=== PATIENT | female | born 1965 | race Two or more races ===

== ENCOUNTER 2022-11-21 08:44 | Outpatient (OUT) | payer OTHER, SELFPAY ==
--- NOTE | 2022-11-21 09:06 | MM_ITS ---
Patient: JACOB WHITMORE Exam Date: 11/21/2022 : 1965 Gender:F Ordering : DR ADDI ANTONIO Admission #: [id number] Family : Order #: [id number] CLICK HERE TO VIEW EXAM RADIOLOGY REPORT PROCEDURE: MM TOMOSYNTHESIS SCREENING BI COMPARISON: MG MAMM SCREEN 3D POLLY CAD, 06/09/2021. INDICATIONS: Screening Calculator Name NCI Breast Cancer Risk Assessment Tool 5 Year Breast Cancer Risk 1.10% Lifetime Breast Cancer Risk 6.50% Personal Breast Cancer No Personal Ovarian Cancer No Treatments None Family Cancers Niece with ovarian cancer at age 35; Father with renal cancer at age 65; Sister with leukemia cancer at age 63. LOCATION: [facility] [place] BREAST COMPOSITION: Scattered areas fibroglandular density. FINDINGS: DIAGNOSTIC CATEGORY 1--NEGATIVE. RIGHT BREAST: No significant suspicious finding. Stable biopsy marker clip upper-outer quadrant. No significant change has occurred. LEFT BREAST: No significant suspicious finding. No significant change has occurred. RECOMMENDATIONS: ROUTINE MAMMOGRAM AND CLINICAL EVALUATION IN 12 MONTHS. PLEASE NOTE: A NORMAL MAMMOGRAM DOES NOT EXCLUDE THE POSSIBILITY OF BREAST CANCER. A CLINICALLY SUSPICIOUS PALPABLE LUMP SHOULD BE BIOPSIED. Dictated by: Adithya Hernandez M.D. on 11/21/2022 at 11:35 Approved by: Adithya Hernandez M.D. on 11/21/2022 at 11:39
== END 2022-11-21 08:45 ==
PROVIDERS: PCP Specialist; Visit Provider Specialist
DX: Z12.31 Encounter for screening mammogram for malignant neoplasm of breast (principal); Z80.51 Family history of malignant neoplasm of kidney; Z80.6 Family history of leukemia; Z80.41 Family history of malignant neoplasm of ovary
CPT/HCPCS: 77063; 77067

== ENCOUNTER 2023-07-04 08:02 | Outpatient (OUT) | payer OTHER, SELFPAY ==
--- NOTE | 2023-07-04 08:06 | XR_ITS ---
[address] [address] Patient Name: JACOB WHITMORE MRN: [id number] date: 1965 Sex: F Assigned Patient Location: [facility] Current Patient Location: [facility] Accession/Order Number: [id number] Exam Date: 07/04/2023 08:10 Report Date: 07/04/2023 08:28 At the request of: SHAIKH REYMUNDO Procedure: XR DEXA axial skeleton EXAMINATION: XR DEXA axial skeleton, 07/04/2023 8:10 AM EST HISTORY: Osteopenia Of Left Femur M85.852 COMPARISON: 2020 TECHNIQUE: Dual-energy X-ray absorptiometry (DEXA) bone density study performed for the axial skeleton. HISTORY: Osteopenia Of Left Femur M85.852 FINDINGS: Bone mineral density of the femurs measures 0.92 g/sq cm. 1.9% reduction from the prior exam, physiologic. T score -0.6. WHO classification: Normal. Lowest bone mineral density is in the left forearm radius measuring 0.588 g/sq cm. T score -1.8. WHO classification: Osteopenia XR/XR DEXA axial skeleton IMPRESSION: Osteopenia. Moderate fracture risk Electronically authenticated by: ADALBERTO BUENO Date: 07/04/2023 08:28
== END 2023-07-04 08:03 | disposition home or self-care (01) ==
LOC: RAD 08:02
PROVIDERS: Family Provider Internal Medicine; PCP Specialist; Visit Provider Internal Medicine
DX: M85.852 Other specified disorders of bone density and structure, left thigh (principal)
CPT/HCPCS: 77080

== ENCOUNTER 2023-08-27 13:57 | Outpatient (OUT) | payer OTHER, SELFPAY ==
--- NOTE | 2023-08-27 14:07 | US_ITS ---
Patient Name: JACOB WHITMORE MR#: [id number] : 1965 Exam Date: 08/27/2023 Ordering Doctor: DR ADDI ANTONIO RADIOLOGY REPORT PROCEDURE: MM TOMOSYNTHESIS DIAGNOSTIC LT, 08/27/2023, 13:09 US BREAST LT LIMITED, 08/27/2023, 14:23 COMPARISON: MM TOMOSYNTHESIS SCREENING BI, 11/21/2022. INDICATIONS: breast pain N64.4 Calculator Name NCI Breast Cancer Risk Assessment Tool 5 Year Breast Cancer Risk 1.10% Lifetime Breast Cancer Risk 6.30% Personal Breast Cancer No Personal Ovarian Cancer No Treatments None Family Cancers Niece with ovarian cancer at age 35; Father with renal cancer at age 65; Sister with leukemia cancer at age 63. LOCATION: [facility] BREAST COMPOSITION: Scattered areas fibroglandular density. FINDINGS: DIAGNOSTIC CATEGORY 3--PROBABLY BENIGN FINDING. THE FOLLOWING FINDING(S) HAS A HIGH PROBABILITY OF A BENIGN ETIOLOGY: 7 mm nodules identified in the upper-outer quadrant in the region the patient's palpable abnormality demarcated a triangle marker. Ultrasound demonstrates at the 1 o'clock position a 7.0 x 4.9 x 8.5 mm oval well-circumscribed hypoechogenic reniform shaped nodule. No definite hilum is observed. This could represent a lymph node. Six-month follow-up is recommended to document stability RECOMMENDATIONS: SHORT TERM FOLLOW-UP DIAGNOSTIC MAMMOGRAM LEFT BREAST IN 6 MONTHS. SHORT TERM FOLLOW-UP ULTRASOUND LEFT BREAST IN 6 MONTHS. PLEASE NOTE: A NORMAL MAMMOGRAM DOES NOT EXCLUDE THE POSSIBILITY OF BREAST CANCER. A CLINICALLY SUSPICIOUS PALPABLE LUMP SHOULD BE BIOPSIED. Dictated by: Cachorro Campos MD on 08/27/2023 at 15:14 Approved by: Cachorro Campos MD on 08/27/2023 at 15:17
== END 2023-08-27 13:58 | disposition home or self-care (01) ==
LOC: MAMMO 13:58
PROVIDERS: Family Provider Internal Medicine; PCP Specialist; Visit Provider Specialist
DX: N64.4 Mastodynia (principal); Z80.51 Family history of malignant neoplasm of kidney; Z80.6 Family history of leukemia; Z80.41 Family history of malignant neoplasm of ovary; N63.21 Unspecified lump in the left breast, upper outer quadrant
CPT/HCPCS: 76642; 77065; G0279

== ENCOUNTER 2024-03-05 09:02 | Outpatient (OUT) | payer OTHER, SELFPAY ==
--- NOTE | 2024-03-05 09:05 | MM_ITS ---
Patient Name: JACOB WHITMORE MR#: [id number] : 1965 Exam Date: 03/05/2024 Ordering Doctor: DR ADDI ANTONIO RADIOLOGY REPORT PROCEDURE: MAMMOGRAM DIAGNOSTIC 3D BILATERAL CAD, 03/05/2024, 09:06 US BREAST LT LIMITED, 03/05/2024, 09:18 COMPARISON: MM TOMOSYNTHESIS SCREENING BI, 11/21/2022. MM TOMOSYNTHESIS DIAGNOSTIC LT, 08/27/2023. INDICATIONS: abnormal finding of breast imaging Calculator Name [facility] Breast Cancer Risk Assessment Tool 5 Year Breast Cancer Risk 1.10% Lifetime Breast Cancer Risk 6.30% Personal Breast Cancer No Personal Ovarian Cancer No Treatments None Family Cancers Niece with ovarian cancer at age 35; Father with renal cancer at age 65; Sister with leukemia cancer at age 63. LOCATION: [facility] BREAST COMPOSITION: There are scattered areas of fibroglandular density. FINDINGS: DIAGNOSTIC CATEGORY 2--BENIGN FINDING. NO CHANGE FROM COMPARISON. Scattered benign-appearing lymph nodes are present. RIGHT BREAST: No significant suspicious finding. Micro clip marker upper outer quadrant, mid breast, stable. LEFT BREAST: No significant suspicious finding. No mammographic or ultrasound abnormality to correspond to patient's breast pain RECOMMENDATIONS: ROUTINE MAMMOGRAM AND CLINICAL EVALUATION IN 12 MONTHS. PLEASE NOTE: A NORMAL MAMMOGRAM DOES NOT EXCLUDE THE POSSIBILITY OF BREAST CANCER. A CLINICALLY SUSPICIOUS PALPABLE LUMP SHOULD BE BIOPSIED. Dictated by: Cachorro Campos MD on 03/05/2024 at 10:28 Approved by: Cachorro Campos MD on 03/05/2024 at 10:40
== END 2024-03-05 09:03 | disposition home or self-care (01) ==
LOC: MAMMO 09:02
PROVIDERS: Family Provider Internal Medicine; PCP Specialist; Visit Provider Specialist
DX: R92.8 Other abnormal and inconclusive findings on diagnostic imaging of breast (principal); Z80.6 Family history of leukemia; Z80.41 Family history of malignant neoplasm of ovary; Z80.8 Family history of malignant neoplasm of other organs or systems
CPT/HCPCS: 76642; 77066; G0279

== ENCOUNTER 2025-01-03 13:33 | Emergency (ER) | payer BC, SELFPAY ==
[2025-01-03] VITALS (10 sets, daily range): BP systolic 141–158; BP diastolic 88–92; PULSE 64–71; O2SAT 99; BMI 33.8
--- NOTE | 2025-01-03 13:50 | XR_ITS ---
The [address] [address] Patient Name: JACOB WHITMORE MRN: [id number] date: 1965 Sex: F Assigned Patient Location: ER Current Patient Location: ER Accession/Order Number: [id number] Exam Date: 01/03/2025 14:22 Report Date: 01/03/2025 14:23 At the request of: STACY RICHARDSON MD Procedure: XR chest 1V PA CHEST: CLINICAL HISTORY: cp COMPARISON: None FINDINGS: Mildly enlarged cardiomediastinal silhouette may be related to low lung volumes. Aortic knob calcifications. No focal airspace opacity, effusion or pneumothorax. XR/XR chest 1V IMPRESSION: Negative for acute pleural or parenchymal disease Impression dictated by: Willie Osman M.D. 01/03/2025 2:23 PM Dictation Location: [place] [address] Electronically authenticated by: [id number] Y Date: 01/03/2025 14:23
--- NOTE | 2025-01-03 13:50 | ECG_ITS ---
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 Measurements Intervals [place] Rate: 69 P: 4 LA: 136 QRS: 35 QRSD: 90 T: 26 QT: 378 QTc: 398 Interpretive Statements 1100 Sinus rhythm 8102 Low QRS voltage in chest leads 9120 atypical ECG No previous ECG available for comparison Electronically Signed On 01-03-2025 15:39:04 EDT by BRENDA GALINDO M.D.
--- OUTSIDE RECORDS SUMMARY | 2025-01-03 13:50 | XMS_ITS | CCD ---
Author Organization [facility] Care Team Providers Care Pipe Organ Builder Name Role Phone MCKOVA TEE D Unavailable Unavailable ANJEL CARTER Unavailable Unavailable CONSULT, SURGERY - ORTHOPAEDICS Unavailable Unavailable ACOSTA, SAFDAR Unavailable Unavailable TSALIKOVA, TEE D Unavailable Unavailable YENNI NELSON Unavailable Unavailable ROMAN, SUGEY Unavailable Unavailable ROMAN, SUGEY Unavailable Unavailable TSALIKOVA, TEE D Unavailable Unavailable TSALIKOVA, TEE D Unavailable Unavailable TSALIKOVA, TEE D Unavailable Unavailable TSALIKOVA, TEE D Unavailable Unavailable TSALIKOVA, TEE D Unavailable Unavailable TSALIKOVA, TEE D Unavailable Unavailable TSALIKOVA, TEE D Unavailable Unavailable TSALIKOVA, TEE D Unavailable Unavailable TSALIKOVA, TEE D Unavailable Unavailable TSALIKOVA, TEE D Unavailable Unavailable TSALIKOVA, TEE D Unavailable Unavailable TSALIKOVA, TEE D Unavailable Unavailable TSALIKOVA, TEE D Unavailable Unavailable ACOSTA, SAFDAR Unavailable Unavailable SELF, SELF Unavailable Unavailable TSALIKOVA, TEE D Unavailable Unavailable NATASHA HARDWICK Attending Unavailable CHERYLNATASHA Primary Care Unavailable CHERYLNATASHA Attending Unavailable CHERYLNATASHA Primary Care Unavailable NATASHA HARDWICK Attending Unavailable NATASHA HARDWICK Referring Unavailable CHERYLNATASHA Primary Care Unavailable FLORENCE JONES Attending Unavailable CHERYLNATASHA Primary Care Unavailable CHERYLNATASHA Attending Unavailable CHERYL, NATASHA Mcgraw Primary Care Unavailable NICOLAS STROUD Attending Unavailable CHERYL, NATASHA Mcgraw Primary Care Unavailable NATASHA HARDWICK Attending Unavailable CHERYLNATASHA MILLER Primary Care Unavailable CHERYL, EDUARDO Attending Unavailable CHERYL, EDUARDO Primary Care Unavailable Tee Valverde Primary Care Provider TEE VALVERDE Primary Care Unavailable HUSAM JACKSON Referring Unavailable HUSAM JACKSON Attending Unavailable FAWWAD, CHISHOLM H Admitting Unavailable FAWWAD, CHISHOLM H Attending Unavailable FAWWAD, CHISHOLM H Primary Care Unavailable KARASIK ., DR GUEVARA Admitting Unavailabl e KARASIK ., DR GUEVARA Attending Unavailabl e FAWWAD, CHISHOLM H Primary Care Unavailable KARASIK ., DR GUEVARA Consulting Unavailabl e WEST, DR ADALBERTO Davis Consulting Unavailable FAWWAD, CHISHOLM H Admitting Unavailable FAWWAD, CHISHOLM H Attending Unavailable FAWWAD, CHISHOLM H Primary Care Unavailable FAWWAD, CHISHOLM H Consulting Unavailable KARASIK ., DR GUEVARA Admitting Unavailabl e KARASIK ., DR GUEVARA Attending Unavailabl e FAWWAD, CHISHOLM H Primary Care Unavailable KARASIK ., DR GUEVARA Consulting Unavailabl e ROSELIA, LYDIA Admitting Unavailable ROSELIALYDIA Attending Unavailable FAWWAD, CHISHOLM H Primary Care Unavailable Lady Gorman Consulting Unavailable ROSELIA, LYDIA Consulting Unavailable YASMEEN RETANA Attending Unavailable PROMISE MATHIAS Referring Unavailabl YASMEEN Nam Attending Unavailable PROMISE MATHIAS Referring Unavailabl e Unavailable Primary Care Provider Unavailniki Villasenor MD, Alfredo Unavailable Akhil Smallwood MD Unavailable Wolf Royal MD Unavailable Deshawn THOMAS, Cait De La Torre Unavailable Casey THOMAS, Sara Unavailable Wolf Iraheta MD Unavailable Craig Wang MD Primary Care Provider Shaikh Mireles MD Primary Care Provider [phone] Craig Wang MD Primary Care Provider SELIN, AHMED Attending Unavailable FAWWAD, CHISHOLM Referring Unavailable FAWWAD, [facility] Primary Care Unavailable CASEY SARA Attending Unavailab le FAWWAD, CHISHOLM Referring Unavailable FAWWAD, [facility] Primary Care Unavailable WOLF ROYAL Attending Unavailable FAWWAD, CHISHOLM Referring Unavailable FAWWAD, [facility] Primary Care Unavailable FAWWAD, [facility] Referring Unavailable FAWWAD, [facility] Primary Care Unavailable MUNIZ, MARIANA GALINDO Attending Unavailable MUNIZ, MARIANA GALINDO Referring Unavailable FAWWAD, [facility] Primary Care Unavailable NARAHARISJANELLEY, SARA Attending Unavailab le FAWWAD, [facility] Referring Unavailable CRAIG WANG Primary Care Unavailable SELIN, AHMED Attending Unavailable FAWWAD, [facility] Referring Unavailable FAWWAD, [facility] Primary Care Unavailable SELIN, ASIMMED [facility] Referring Unavailable CRAIG WANG Primary Care Unavailable Kathleen THOMAS, [facility] Primary Care Provider [phone] Aline THOMAS, [facility] Primary Care Provider [phone] Aline THOMAS, [facility] Primary Care Provider [phone] Jacklyn THOMAS, Alfredo Unavailable [phone] Akhil Smallwood MD Unavailable Unavailable Wolf Royal MD Unavailable [phone] Casey THOMAS, Sara Unavailable Wolf Iraheta MD Unavailable Kathleen THOMAS, Craig Primary Care Provider Kathleen THOMAS, Craig [place] Primary Care Provider Kathleen THOMAS, Craig Primary Care Provider [phone] ALINE, CHISHOLM Referring Unavailable FAWWAD, [facility] Primary Care Unavailable WOLF ROYAL Admitting Unavailable WOLF ROYAL Attending Unavailable FAWWAD, CHISHOLM Referring Unavailable FAWWAD, [facility] Primary Care Unavailable WOLF ROYAL Attending Unavailable WOLF ROYAL Referring Unavailable FAWWAD, CHISHOLM Primary Care Unavailable TREMAYNE CHAPMAN Attending Unavailable ALINE, CHISHOLM Primary Care Unavailable MARIANA MUNIZ Referring Unavailable ATULD, CHISHOLM Primary Care Unavailable NARAHARISETTY, SARA Referring Unavailab le HEMEYER, EDBHARATHI J Primary Care Unavailable NARAHARISETTY, SARA Attending Unavailab le CRAIG WANG J Referring Unavailable CRAIG WANG J Primary Care Unavailable CRAIG WANG Attending Unavailable CRAIG WANG Attending Unavailable CRAIG WANG Attending Unavailable CAIT ANTONIO Attending Unavailable CAIT ANTONIO Attending Unavailable CRAIG WANG Attending Unavailable CRAIG WANG Attending Unavailable CRAIG WANG Attending Unavailable CRAIG WANG J Attending Unavailable CRAIG WANG J Referring Unavailable HEMEGUERITA, EDBHARATHI J Primary Care Unavailable NARAHARISETTY, SARA Referring Unavailab le KATHLEEN, EDBHARATHI J Primary Care Unavailable CAIT ANTONIO Referring Unavailable CRAIG WANG Primary Care Unavailable JOSE ANGEL AKBAR Referring Unavailable HEMEGUERITA, CRAIG [place] Primary Care Unavailable Craig Wang MD Primary Care Provider [phone] Allergies Allergy Classification Reported Allergen(s) Allergy Type Date of Onset Reaction(s) Facility (2 sources) Benzoyl Peroxide; Translations: [BENZOYL PEROXIDE] Drug Allergy 05-08-20 [facility] Work Phone: (20 sources) Penicillins; Translations: [PENICILLINS] Propensity to adverse reactions 05-08-20 [facility] Work Phone: (1 source) NO LATEX ALLERGY [Other] Propensity to adverse reactions 06-01-20 04 [facility] (1 source) OTHER; Translations: [OTHER] Propensity to adverse reactions (disorder) 06-01-20 [facility] Repository (1 source) Penicillin Drug Allergy [facility] [place] Repository (1 source) ALLERGIES NOT ON FILE; Translations: [ALLERGIES NOT ON FILE] Propensity to adverse reactions (disorder) [facility] Repository (20 sources) Benzoyl Peroxide Drug Allergy 05-08-20 Swelling [facility] (20 sources) Gluten Propensity to adverse reactions 12-07-19 23 Diarrhea, GI intolerance [facility] (20 sources) Hydrogen Peroxide; Translations: [HYDROGEN PEROXIDE] Drug Allergy 10-04-19 Swelling [facility] (20 sources) Lactase / Lactobacillus acidophilus Drug Allergy 12-07-19 Diarrhea, GI intolerance [facility] (20 sources) Penicillin G Drug Allergy 02-23-20 [facility] (20 sources) Penicillins Drug Intolerance 05-08-20 Anaphylaxis [facility] (20 sources) Hydrogen Peroxide Drug Allergy 10-04-19 Facial Swelling [facility] (20 sources) Wheat gluten extract; Translations: [GLUTEN] Drug Allergy 12-07-19 Diarrhea [facility] (20 sources) Lactobacillus Acidoph-Lactase; Translations: [LACTOBACILLUS ACIDOPH-LACTASE] Propensity to adverse reactions to drug 12-07-19 Diarrhea [facility] (17 sources) Penicillins Propensity to adverse reactions to drug 05-08-20 [facility] Medications Current Medications Medication Drug Class(es) Dates Sig (Normalized) Sig (Original) alendronic acid 35 mg oral tablet (20 sources) Bisphosphonate Start: 11-23-2024 take 1 tablet by mouth in the morning alendronate (Fosamax) 35 MG tablet Indications: Osteopenia of left forearm TAKE 1 TABLET BY MOUTH EVERY 7 DAYS IN THE MORNING WITH A FULL GLASS OF WATER ON AN EMPTY STOMACH. DO NOT LIE DOWN FOR 30 MINUTES 12 tablet 11/23/2024 Active Start: 11-29-2023 End: 05-30-2024 take 1 tablet by mouth in the morning alendronate (Fosamax) 35 MG tablet Indications: Osteopenia of left forearm Take 1 tablet (35 mg) by mouth every 7 (seven) days Take in the morning with a full glass of water, on an empty stomach, and do not take anything else by mouth or lie down for the next 30 min. 12 tablet 02/24/2024 Active Start: 11-29-2023 End: 05-30-2024 take 1 tablet by mouth every week alendronate (FOSAMAX) 35 mg tablet Take 1 tablet (35 mg total) by mouth Once a week. 11/29/2023 05/30/2024 Active ascorbic acid 60 mg / beta carotene 5000 unt / copper sulfate 40 mg / dl-alpha tocopheryl acetate 30 unt / sodium selenite 0.04 mg / zinc oxide 40 mg oral tablet (13 sources) Vitamin C Start: 02-24-2024 End: 05-24-2024 take 1 tablet by mouth once daily Multiple Vitamins-Iron (Tab-A-Luzmaria/Iron) tablet Indications: Osteopenia of left forearm Take 1 tablet by mouth Daily 90 tablet 02/24/2024 05/24/2024 Active Start: 11-25-2023 End: 02-10-2024 take 1 tablet by mouth once daily Multiple Vitamin (Multivitamin Adult) tablet Indications: Metabolic syndrome Take 1 tablet by mouth Daily 90 tablet 11 11/25/2023 02/10/2024 Discontinued (Med list cleanup) Start: 04-01-2023 take 1 tablet by jacqui th in the morning Multiple Vitamins-Iron (Tab-A-Luzmaria/Iron) tablet Take 1 tablet by mouth in the morning. 04/01/2023 Active benzoyl peroxide 0.05 mg/mg topical gel (20 sources) Start: 10-11-2023 End: 02-10-2024 benzoyl peroxide (BENZAC) 5 % gel 10/11/2023 Active benzoyl peroxide 0.05 mg/mg / clindamycin phosphate 0.012 mg/mg topical gel (20 sources) Lincosamide Antibacterial Start: 10-01-2023 clindamycin-benzoyl peroxide (DUAC) gel 10/01/2023 Active Start: 10-01-2023 clindamycin-be nzoyl peroxide (DUAC) gel apply topically to affected area ON FACE once daily 10/01/2023 Active BIOFLAVANOID (20 sources) BIOFLAVANOID [place] e by mouth Daily Active cholecalciferol 0.125 mg oral tablet (20 sources) Vitamin D Start: 02-24-2024 End: 05-24-2024 take 1 tablet by mouth once daily cholecalciferol (Vitamin D-3) 125 MCG (5000 UT) tablet Indications: Osteopenia of left forearm Take 1 tablet (125 mcg) by mouth Daily 90 tablet 02/24/2024 05/24/2024 Active Start: 11-11-2023 End: 02-10-2024 take 1 tablet by mouth once in the morning cholecalciferol (D3-5) 5,000 Units tablet Indications: Vitamin D deficiency Take 1 tablet (5,000 Units) by mouth in the morning. 90 tablet 11/11/2023 02/10/2024 End: 05-18-2024 take 1 tablet by mouth in the morning cholecalciferol, vitamin D3, 5,000 units tablet Take 1 tablet (5,000 Units total) by mouth in the morning. 05/18/2024 Discontinued Citicoline (7 sources) Citicoline ([employer] PO) Take by mouth 1 (one) time each day Active clindamycin 0.01 mg/mg topical gel (20 sources) Lincosamide Antibacterial Start: End: clindamycin (CLINDAGEL) 1 % gel 10/10/2023 Active cyclobenzaprine hydrochloride 10 mg oral tablet (16 sources) Muscle Relaxant Start: End: take 1 tablet by mouth three times daily as needed for muscle spasms cyclobenzaprine (Flexeril) 10 MG tablet Indications: Lumbar back pain with radiculopathy affecting right lower extremity Take 1 tablet (10 mg) by mouth 3 (three) times a day as needed for muscle spasms for up to 20 days 60 tablet 05/12/2024 Active Eddglqsbgy-Nbwsh-Nts-Me thylSal (INFLAMMA-K CO) (7 sources) Diclofenac-Camph -Men-M ethylSal (INFLAMMA-K CO) Take by mouth Daily Active Digestive Enzymes (DIGESTIVE ENZYME PO) (7 sources) Digestive Enzyme s (DIGESTIVE ENZYME PO) Take by mouth Daily Active DTx Ha - Wellness (GLP-1 Rubber Stamp Assembler) kit (14 sources) End: DTx Ha - Wellness (GLP-1 Rubber Stamp Assembler) kit Inject 6 mL under the skin 1 (one) time per week 12/02/2024 Discontinued DTx Ha - Wellne ss (GLP-1 Rubber Stamp Assembler) kit Inject 6 mL under the skin 1 (one) time per week Active [id number] 0.3 ml EPINEPHrine 1 mg/ml auto-injector (20 sources) alpha-Adrenergic Agonist, beta-Adrenergic Agonist, Catecholamine Start: 01-07-2023 EPINEPHrine (EPIP EN) 0.3 mg/0.3 mL auto-injector Inject 0.3 mL (0.3 mg total) into the appropriate muscle as needed (anaphylaxis). 2 each 3 01/07/2023 Active Start: 09-20-2022 inject 0.3 mg by int ramuscular injection every twenty-four hours as needed EPINEPHrine (Epipen) 0.3 MG/0.3ML injection syringe Inject 0.3 mg into the shoulder, thigh, or buttocks Daily as needed. 09/20/2022 Active ergocalciferol 1.25 mg oral capsule (20 sources) Provitamin D2 Compound Start: 05-18-2024 End: 11-11-2024 take 1 capsule by mouth every week ergocalciferol (Vitamin D2) 1.25 MG (73983 UT) capsule Take 1 capsule by mouth 1 (one) time per week 10/25/2024 Active erythromycin 0.005 mg/mg ophthalmic ointment (20 sources) Macrolide, Macrolide Antimicrobial Start: 01-09-2024 erythromycin (ILOTYCIN) ophthalmic ointment APPLY 1 INCH OF OINTMENT TO LEFT EYE THREE TIMES DAILY FOR TODAY ONLY 01/09/2024 Active estrogens, conjugated (mcfp) 0.45 mg / medroxyPROGESTERone acetate 1.5 mg oral tablet (14 sources) Progestin, Estrogen Start: 05-13-2023 take 1 tablet by mouth once daily in the morning PREMPRO 0.45-1.5 mg per tablet take 1 tablet by mouth every morning 05/13/2023 Active famotidine 40 mg oral tablet (20 sources) Histamine-2 Receptor Antagonist Start: 05-26-2023 take 1 tablet by mouth in the morning famotidine (Pepcid) 40 MG tablet Take 40 mg by mouth in the morning. 05/26/2023 Active hydroCHLOROthiazide 12.5 mg / lisinopril 20 mg oral tablet (20 sources) Thiazide Diuretic, Angiotensin Converting Enzyme Inhibitor Start: 02-24-2024 End: 12-31-2024 take 1 tablet by mouth once daily lisinopril-hydroCH LOROthiazide 20-12.5 MG tablet Indications: Essential hypertension, benign Take 1 tablet by mouth Daily 90 tablet 1 05/12/2024 12/31/2024 Discontinued (Dose adjustment) Start: 08-22-2023 take 1 tablet by jacqui th once daily lisinopril-hydroCHLOROthiazide 20-12.5 M G tablet Indications: Essential hypertension, benign (CMS/HCC) Take 1 tablet by mouth Daily 90 tablet 1 08/22/2023 Active Start: 08-22-2023 End: 02-18-2024 take 1 tablet by mouth once in the morning lisinopril-hydroCHLOROthiazide (PRINZIDE,ZESTORETIC) 20-12.5 mg per tablet Take 1 tablet by mouth in the morning. 08/22/2023 02/18/2024 Active hydroCHLOROthiazide 12.5 mg / losartan potassium 50 mg oral tablet (2 sources) Thiazide Diuretic, Angiotensin 2 Receptor Michael Start: 12-31-2024 End: 06-29-2025 take 1 tablet by mouth once daily losartan-hydroCHLOROthiazide (Hyzaar) 50-12.5 MG tablet Indications: Essential hypertension, benign Take 1 tablet by mouth Daily 90 tablet 1 12/31/2024 06/29/2025 Active Lactobacillus acidophilus (14 sources) Lactobacillus ac idophilus (PROBIOTIC ORAL) Take by mouth. Active Lactobacillus ac idophilus (PROBIOTIC ORAL) Take by mouth. 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 SADAF only. 90 capsule 1 11/11/2024 Active Start: 10-28-2024 End: 11-11-2024 take 1 capsule by mouth before mealtime Tirosint 88 MCG capsule Take 88 mcg by mouth in the morning. Take before meals. 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 SADAF only. 90 capsule 3 08/05/2024 10/25/2024 Discontinued (Reorder) End: 05-12-2024 levothyroxine (Synthroid, Le voxyl) 100 MCG tablet Take by mouth Daily before meals 05/12/2024 Discontinued (Therapy completed) End: 02-10-2024 take 1 tablet by mouth before mealtime levothyroxine (Synthroid, Levoxyl) 75 MCG tablet Take 75 mcg by mouth in the morning. Take before meals. 02/10/2024 Discontinued (Med list cleanup) End: 12-04-2023 levothyroxine (SYNTHROID, LEVOTHROID) 75 MCG tablet Take 100 mcg by mouth in the morning. 12/04/2023 Discontinued liothyronine sodium 0.005 mg oral tablet (20 sources) l-Triiodothyronine Start: 05-18-2024 End: 11-30-2024 take 1 tablet by mouth once daily liothyronine (Cytomel) 5 MCG tablet Take 5 mcg by mouth Daily 11/30/2024 Active Start: 10-03-2023 End: 05-12-2024 take 1 tablet by mouth once daily liothyronine (Cytomel) 5 MCG tablet Take 5 mcg by mouth Daily 10/03/2023 02/10/2024 Discontinued (Med list cleanup) loratadine 10 mg oral tablet (20 sources) take 1 tablet by mouth once daily loratadine (Claritin) 10 MG tablet Take 10 mg by mouth Daily Active Menaquinone-7 (VITAMIN K2 PO) (20 sources) take 1 tablet by mouth once daily Menaquinone-7 (VITAMIN K2 PO) Take 1 tablet by mouth Daily Active metFORMIN hydrochloride 1000 mg oral tablet (20 sources) Biguanide Start: 12-10-2024 End: 06-29-2025 take 1 tablet by mouth twice daily at mealtime metFORMIN (Glucophage) 1000 MG tablet Indications: Prediabetes Take 1 tablet (1,000 mg) by mouth 2 (two) times a day with meals 180 tablet 1 12/31/2024 06/29/2025 Active Start: 11-11-2024 take 2 tablets by [facility] every twenty-four hours in the morning, then take 2 tablets by mouth at mealtime metFORMIN XR (GLUCOPHAGE XR) 500 mg 24 hr tablet Indications: Prediabetes Take 2 tablets (1,000 mg total) by mouth in the morning and 2 tablets (1,000 mg total) in the evening. Take with meals. 360 tablet 1 11/11/2024 Active Start: 08-24-2024 End: 11-22-2024 take 1 tablet by mouth in the morning metFORMIN (Glucophage) 1000 MG tablet Indications: Prediabetes Take 1 tablet (1,000 mg) by mouth in the morning and 1 tablet (1,000 mg) in the evening. Take with meals. 180 tablet 08/24/2024 Active Start: 04-09-2024 End: 05-09-2024 take 1 tablet by mouth in the morning metFORMIN (Glucophage) 1000 MG tablet Indications: Prediabetes Take 1 tablet (1,000 mg) by mouth in the morning and 1 tablet (1,000 mg) in the evening. Take with meals. 60 tablet 04/09/2024 Active Start: 04-09-2024 End: 05-12-2024 take 1 tablet by mouth in the morning metFORMIN (Glucophage) 850 MG tablet Indications: Prediabetes Take 1 tablet (850 mg) by mouth in the morning and 1 tablet (850 mg) in the evening. Take before meals. 60 tablet 04/09/2024 05/12/2024 Discontinued (Therapy completed) Start: 12-04-2023 End: 11-11-2024 metFORMIN (GLUCOPHAGE) 500 m g tablet Indications: Prediabetes 2 tabs in the evening and 1 tab in the morning 270 tablet 1 12/04/2023 11/11/2024 Discontinued Start: 12-03-2023 End: 04-09-2024 take 1 tablet by mouth once daily at mealtime metFORMIN (Glucophage) 500 MG tablet Indications: History of prediabetes take 1 tablet by mouth every morning and evening with meals 60 tablet 2 12/03/2023 04/09/2024 Discontinued (Dose adjustment) Misc Natural Products (ADRENAL PO) (7 sources) Misc Natural Pro ducts (ADRENAL PO) Take by mouth Daily Active Multiple Minerals-Vitamins (DOLOMITE PLUS VITAMINS A AND D PO) (20 sources) Multiple Mineral s-Vitamins (DOLOMITE PLUS VITAMINS A AND D PO) Take by mouth Active multivitamin with minerals tablet (20 sources) take 1 tablet by jacqui th in the morning multivitamin with minerals tablet Take 1 tablet by mouth in the morning. Active take 1 tablet by mouth in the mo rning multivitamin with minerals tablet Take 1 tablet by mouth in the morning. 0 Active nabumetone 750 mg oral tablet (5 sources) Nonsteroidal Anti-inflammatory Drug Start: 05-12-2024 End: 06-11-2024 take 1 tablet by mouth in the morning nabumetone (Relafen) 750 MG tablet Indications: Lumbar back pain with radiculopathy affecting right lower extremity Take 1 tablet (750 mg) by mouth in the morning and 1 tablet (750 mg) before bedtime. 60 tablet 05/12/2024 06/11/2024 Active Start: 02-18-2024 End: 03-19-2024 take 1 tablet by mouth in the morning nabumetone (Relafen) 750 MG tablet Indications: Lumbar back pain with radiculopathy affecting right lower extremity Take 1 tablet (750 mg) by mouth in the morning and 1 tablet (750 mg) before bedtime. 60 tablet 02/18/2024 03/19/2024 Active NON FORMULARY (7 sources) NON FORMULARY Ta ke by mouth Daily Danni Support Active 1 ml omalizumab 150 mg/ml prefilled syringe (20 sources) Anti-IgE Start: 05-20-2024 End: 06-11-2024 omalizumab (XOLAIR) 150 mg/m L syringe Indications: Chronic idiopathic urticaria INJECT 2 SYRINGES (300 MG) UNDER THE SKIN EVERY 28 DAYS 1 mL 11 05/20/2024 06/11/2024 Discontinued (Reorder) Start: 02-12-2024 Xolair 150 MG/ ML injection Inject 150 mg under the skin every 14 (fourteen) days 02/12/2024 Active Start: 09-19-2022 End: 05-20-2024 inject 150 mg by subcutaneous injection every 30 days Xolair 150 MG/ML injection Inject 150 mg under the skin every 30 (thirty) days 02/12/2024 Active Start: 09-19-2022 End: 02-10-2024 omalizumab (Xolair) 150 MG/M L injection Inject 300 mg under the skin every 28 (twenty-eight) days. 09/19/2022 02/10/2024 Discontinued (Med list cleanup) [place] 3-6-9 Fatty Acids (OMEGA DHA PO) (20 sources) [place] 3-6-9 Fatt y Acids (OMEGA DHA PO) Take by mouth Daily Active pantoprazole 40 mg delayed release oral tablet (20 sources) Proton Pump Inhibitor Start: End: take 1 tablet by mouth in the morning pantoprazole (ProtoNix) 40 MG EC tablet Take 40 mg by mouth in the morning. 01/17/2024 Active Start: 12-12-2023 take 1 tablet by jacqui th once daily pantoprazole (PROTONIX) 40 mg EC tablet TAKE 1 TABLET BY MOUTH ONCE DAILY 12/12/2023 Active polyethylene glycol 3350 68888 mg powder for oral solution (20 sources) Osmotic Laxative Start: 02-16-2024 polyethylene glycol, PEG, 3350 (Glycolax) 17 GM/SCOOP powder Take 17 g by mouth Daily 02/16/2024 Active Start: 05-20-2023 End: 05-14-2024 polyethylene glycol (GLYCOLA X) 17 gram/dose powder Indications: Constipation, unspecified constipation type Take 17 g by mouth in the morning for 360 days. 510 g 11 05/20/2023 05/14/2024 Active End: 02-10-2024 polyethylene glycol, PEG, 33 50 (Glycolax) 17 GM/SCOOP powder Take 17 g by mouth in the morning. 02/10/2024 Discontinued (Med list cleanup) Comment on above: Take 17 g by mouth o nce daily. Rhodiola rosea (RHODIOLA PO) (20 sources) End: 12-03-2024 take 1 tablet by mouth once daily Rhodiola rosea (RHODIOLA PO) Take 1 tablet by mouth Daily 12/03/2024 Discontinued (Therapy completed) take 1 tablet by mouth once nicole y Rhodiola rosea (RHODIOLA PO) Take 1 tablet by mouth Daily Active rOPINIRole 0.25 mg oral tablet (20 sources) Nonergot Dopamine Agonist Start: 12-14-2024 End: 06-12-2025 take 1 tablet by mouth at bedtime rOPINIRole (Requip) 0.25 MG tablet Indications: Restless Leg Syndrome Take 1 tablet (0.25 mg) by mouth at bedtime 90 tablet 12/14/2024 06/12/2025 Active Start: 07-15-2023 End: 11-08-2024 take 1 tablet by mouth at bedtime rOPINIRole (Requip) 0.25 MG tablet Indications: Restless Leg Syndrome Take 1 tablet (0.25 mg) by mouth at bedtime 90 tablet 1 05/12/2024 Active rosuvastatin calcium 5 mg oral tablet (20 sources) HMG-CoA Reductase Inhibitor Start: 02-24-2024 End: 06-29-2025 take 1 tablet by mouth once daily rosuvastatin (Crestor) 5 MG tablet Indications: Metabolic syndrome Take 1 tablet (5 mg) by mouth Daily 90 tablet 1 12/31/2024 06/29/2025 Active Start: 10-28-2023 End: 01-26-2024 take 1 tablet by mouth once daily rosuvastatin (Crestor) 5 MG tablet Indications: Metabolic syndrome Take 1 tablet (5 mg) by mouth Daily 90 tablet 10/28/2023 Active selenium 200 MCG tablet (20 sources) selenium 200 MCG tablet Take 200 mg by mouth Daily Active semaglutide, weight loss, (WEGOVY) 0.25 mg/0.5 mL pen injector (2 sources) Start: 11-12-2024 semaglutide, weight loss, (WEGOVY) 0.25 mg/0.5 mL pen injector Inject 0.5 mL (0.25 mg total) under the skin every 7 days. 2 mL 11 11/12/2024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 Comment on above: Order Comment: Thyro id profile includes TSH FT4 authorized by Cait Antonio MD was collected insteadPrint requisition?->No TESTOSTERONE, FREE AND TOTAL MALEon 11-03-2024 TESTOSTERONE, FREE AND TOTAL MALE TEFTMA TESTOSTERONE, FREE AND TOTAL MALE Cancelled Normal [facility] Comment on above: Order Comment: Print requisition?->No TESTOSTERONE, FREE AND TOTAL , FEMALE OR CHILDRENon 11-03-2024 FREE TESTOSTERONE, FEMALE OR CHILDREN 1.4 pg/mL Normal 0.6-3.8 [facility] Comment on above: Result Comment: INTE RPRETIVE INFORMATION: Testosterone, Free by Transit [employer] Free testosterone concentration is calculated using total testosterone (measured by mass spectrometry) and the binding constant of testosterone and sex hormone-binding globulin (SHBG). For individuals on testosterone-suppressing hormone therapies (e.g., antiandrogens or estrogens), refer to cisgender female reference intervals. For a complete set of all established reference intervals, refer to [employer] [facility] [employer]/Tests/Pub/4000407. This test was developed and its performance characteristics determined by [facility]. It has not been cleared or approved by the [place] Food and Drug Administration. This test was performed in a CLIA certified laboratory and is intended for clinical purposes. Performed By: [facility] [address] [place] [address] Clinical Laboratory Technologist: Vini Verdin MD, PhD CLIA Number: [id number] Performed By: #### 3 016-3, 56682-4, 3051-0, HA1C, 3024-7, CMP #### [facility] ([id number]) [address], [address] [place] [address] SEX HORMONE BINDING GLOBULIN, FEMALE OR CHILDREN 43 nmol/L Normal 17-125 [facility] Comment on above: Result Comment: REFE RENCE INTERVAL: Sex Hormone Binding Globulin Access complete set of age- and/or gender-specific reference intervals for this test in the [employer] [facility] ([employer]). Performed By: #### 3 016-3, 67971-3, 3051-0, [facility], 3024-7, CMP #### [facility] ([id number]) [address], [address] [place] [address] TESTOSTERONE, FEMALE OR CHILDREN 10 ng/dL Normal 5-32 [facility] Comment on above: Result Comment: REFE RENCE INTERVAL: Testosterone by [employer] Females Premenopausal 9-55 ng/dL Postmenopausal 5-32 ng/dL INTERPRETIVE INFORMATION: Testosterone by [employer] Free or bioavailable testosterone measurements may provide supportive information. For individuals on testosterone-suppressing hormone therapies (e.g., antiandrogens or estrogens), refer to cisgender female reference intervals. For a complete set of all established reference intervals, refer to [employer] [facility] [facility]/Tests/Pub/0918993. This test was developed and its performance characteristics determined by [facility]. It has not been cleared or approved by the [place] Food and Drug Administration. This test was performed in a CLIA certified laboratory and is intended for clinical purposes. Performed By: #### 3 016-3, 37347-5, 3051-0, HA1C, 3024-7, CMP #### [facility] ([id number]) [address], [address] [place] [address] THYROGLOBULIN ANTIBODYon Thyroglobulin Ab Qn 7 [IU]/mL High <4 [facility] Comment on above: Order Comment: Print requisition?->No Performed By: #### 3 016-3, 00539-4, 3051-0, HA1C, 3024-7, CMP #### [facility] ([id number]) [address], [address] [place] [address] THYROGLOBULIN QUANTITATIVE W /ANTIBODY (TUMOR MARKER)on 11-03-2024 THYROGLOBULIN 0.3 ng/mL Normal <=35.0 [facility] Comment on above: Order Comment: Print requisition?->NoQuantitation of Thyroglobulin may beunreliable due to the presence ofAnti-Thyroglobulin antibodies. The resultscannot be interpreted as absolute evidencefor the presence or absence of malignant disease. Performed By: #### 3 016-3, 55358-4, 3051-0, HA1C, 3024-7, CMP #### [facility] ([id number]) [address], [address] [place] [address] THYROGLOBULIN AB 7 IU/mL High <4 [facility] Comment on above: Order Comment: Print requisition?->NoQuantitation of Thyroglobulin may beunreliable due to the presence ofAnti-Thyroglobulin antibodies. The resultscannot be interpreted as absolute evidencefor the presence or absence of malignant disease. Performed By: #### 3 016-3, 19619-1, 3051-0, HA1C, 3024-7, CMP #### [facility] ([id number]) [address], [address] [place] [address] THYROID PEROXIDASE ANTIBODYo 11-03-2024 TPO Ab Qn 134 [IU]/mL High <10 [facility] Comment on above: Order Comment: Print requisition?->No Performed By: #### 3 016-3, 10185-7, 305-0, HA, 3024-7, CMP #### [facility] ([id number]) [address] [address], [address] [place] [address] THYROID PROFILE INCLUDES TSH FT4on 11-03-2024 Free T4 [Mass/Vol] 0.82 ng/dL Normal 0.61-1.60 [facility] Comment on above: Order Comment: Print requisition?->No Performed By: #### 3 016-3, 15125-7, 305-0, [facility], 3024-7, CMP #### [facility] ([id number]) [address] [facility], [facility] [address] [place] [address] TSH 2.73 uIU/mL Normal 0.49-4.67 [facility] Comment on above: Order Comment: Print requisition?->No Performed By: #### 3 016-3, 03608-7, 305-0, [facility], 4-7, CMP #### [facility] ([id number]) [address] [facility] [address] [place] [address] VITAMIN D 25 HYDROXYon 11-03 VITAMIN D 25 HYD TOT 57.1 ng/mL Normal 30.0-100.0 [facility] Comment on above: Order Comment: Print requisition?->NoVitamin D status 25 [place] Vitamin D Deficiency <20 ng/mLInsufficiency 20-29 ng/mLSufficiency 30-100 ng/mLToxicity >100 ng/mLNOTE: A pediatric reference range has not been established by the measurement technician of this kit. The [place] [employer] recommends a Vitamin D level of = or >20ng/mL in infants and children. Performed By: #### 3 016-3, 32958-1, 3051-0, HA1C, 3024-7, [facility] #### [facility] ([id number]) [address], [address] [place] [address] HEMOGLOBIN A1Con 10-30-2024 Glucose [Mass/Vol] 134 mg/dL Normal [facility] Comment on above: Performed By: #### H A1C #### [facility] ([facility]) [address] [place] [address] VIR HbA1c (Bld) [Mass fraction] 6.3 % High 4.4-5.6 [facility] Comment on above: Result Comment: ADA Guidelines Result HgbA1c Normal : less than 5.7 % Prediabetes : 5.7 % to 6.4 % Diabetes : > 6.4 % Use with caution in patients with abnormal hemoglobin variants as the half-life of red blood cells and in vivo glycation rates are affected. Performed By: #### H A1C #### [facility] ([facility]) [address] [place] [address] VIR T3, FREEon 10-30-2024 Free T3 [Mass/Vol] 2.76 pg/mL Normal 2.50-3.90 [facility] Comment on above: Performed By: #### F T3 #### [facility] ([facility]) [address] [place] [address] VIR T4, FREEon 10-30-2024 Free T4 [Mass/Vol] 0.83 ng/dL Normal 0.61-1.60 [facility] Comment on above: Performed By: #### F T4 #### [facility] ([facility]) [address] [place] [address] VIR TSHon 10-30-2024 TSH 2.33 uIU/mL Normal 0.49-4.67 [facility] Comment on above: Performed By: #### T SH #### [facility] ([facility]) [address] [place] [address] VIR VITAMIN D 25 HYDROXYon 10-30 VITAMIN D 25 HYD TOT 53.8 ng/mL Normal 30.0-100.0 [facility] Comment on above: Order Comment: Vitam in D status 25 [place] Vitamin D Deficiency <20 ng/mLInsufficiency 20-29 ng/mLSufficiency 30-100 ng/mLToxicity >100 ng/mLNOTE: A pediatric reference range has not been established by the measurement technician of this kit. The [place] [employer] recommends a Vitamin D level of = or >20ng/mL in infants and children. Performed By: #### 3 016-3, 05968-0, 3051-0, HA1C, 3024-7, [facility] #### [facility] ([id number]) [address], [address] [place] [address] FREE T3on 05-18-2024 Free T3 [Mass/Vol] 3.19 pg/mL Normal 2.50-3.90 [facility] Comment on above: Performed By: #### 3 016-3, 3024-7, 56133-1, 305-0 #### [facility] ([id number]) [address], [address] [place] [address] FREE T4on 05-18-2024 Free T4 [Mass/Vol] 0.63 ng/dL Normal 0.61-1.60 [facility] Comment on above: Performed By: #### 3 016-3, 3024-7, 81283-1, 305-0 #### [facility] ([id number]) [address], [address] [place] [address] Free T3 [Mass/Vol]on [facility] Free T4 [Mass/Vol]on [facility] T3, freeon 05-18-2024 Free T3 [Mass/Vol] 3.19 pg/mL 2.50 - 3. 90 pg/mL [facility] T4, freeon 05-18-2024 Free T4 [Mass/Vol] 0.63 ng/dL 0.61 - 1. 60 ng/dL [facility] TSHon 05-18-2024 TSH Qn 2.62 m[IU]/L [facility] TSH Qnon 05-18-2024 [facility] TSH 2.62 uIU/mL Normal 0.49-4.67 [facility] Comment on above: Performed By: #### 3 016-3, 3024-7, 47578-8, 3051-0 #### [facility] ([id number]) [address] [place] [address] [address] [place] [address] Vitamin D 25 hydroxyon 05-18 Vitamin D+Metabolites [Mass/Vol] 46 ng/mL 30 - 100 ng/mL [facility] Comment on above: Vitamin D status 25 [place] Vitamin D Deficiency <20 ng/mL Insufficiency 20-29 ng/mL Sufficiency 30-100 ng/mL Toxicity >100 ng/mL NOTE: A pediatric reference range has not been established by the measurement technician of this kit. The [place] [employer] recommends a Vitamin D level of = or >20ng/mL in infants and children. Vitamin D+Metabolites [Mass/ Vol]on 05-18-2024 [facility] VITAMIN D 25 HYD TOT 46.0 ng/mL Normal 30-100 [facility] Comment on above: Result Comment: Vitamin D status 25 [place] Vitamin D Deficiency <20 ng/mL Insufficiency 20-29 ng/mL Sufficiency 30-100 ng/mL Toxicity >100 ng/mL NOTE: A pediatric reference range has not been established by the measurement technician of this kit. The [place] [employer] recommends a Vitamin D level of = or >20ng/mL in infants and children. Performed By: #### 3 016-3, 3024-7, 22657-8, 305-0 #### [facility] ([id number]) [address], [address] [place] [address] COMPREHENSIVE METABOLIC PANE Francesco 04-10-2024 Albumin [Mass/Vol] 4.5 g/dL Normal 3.2-5.3 [facility] Comment on above: Performed By: #### 3 016-3, 33243-1, 305-0, HA1C, 3023-7, CMP #### [facility] ([id number]) [address], [address] [place] [address] ALP [Catalytic activity/Vol] 61 U/L Normal 39-130 [facility] Comment on above: Performed By: #### 3 016-3, 62956-8, 305-0, HA1C, 4-7, CMP #### [facility] ([id number]) [address], [facility] [address] [place] [address] ALT [Catalytic activity/Vol] 15 U/L Normal 0-31 [facility] Comment on above: Performed By: #### 3 016-3, 54166-8, 305-0, HA1C, 4-7, CMP #### [facility] ([id number]) [address] [place] [address] Anion gap [Moles/Vol] 10 mmol/L Normal 5-15 [facility] Comment on above: Performed By: #### 3 016-3, 47540-9, 3051-0, HA1C, 3024-7, CMP #### [facility] ([id number]) [address], [address] [place] [address] AST [Catalytic activity/Vol] 22 U/L Normal 0-41 [facility] Comment on above: Performed By: #### 3 016-3, 68753-3, 3051-0, HA1C, 3024-7, CMP #### [facility] ([id number]) [address], [address] [place] [address] Bilirubin [Mass/Vol] 0.6 mg/dL Normal 0.3-1.2 [facility] Comment on above: Performed By: #### 3 016-3, 69232-9, 305-0, HA1C, 3024-7, CMP #### [facility] ([id number]) [address], [address] [place] [address] Calcium [Mass/Vol] 9.8 mg/dL Normal 8.5-10.5 [facility] Comment on above: Performed By: #### 3 016-3, 47871-4, 305-0, HA1C, 3024-7, CMP #### [facility] ([id number]) [address], [address] [place] [address] Chloride [Moles/Vol] 100 mmol/L Normal 98-109 [facility] Comment on above: Performed By: #### 3 016-3, 52917-6, 305-0, HA1C, 3024-7, CMP #### [facility] ([id number]) [address], [address] [place] [address] CO2 [Moles/Vol] 27 mmol/L Normal 22-32 [facility] Comment on above: Performed By: #### 3 016-3, 84236-8, 3051-0, HA1C, 3024-7, CMP #### [facility] ([id number]) [address], [address] [place] [address] Creatinine [Mass/Vol] 0.87 mg/dL Normal 0.40-1.00 [facility] Comment on above: Result Comment: METH OD TRACEABLE TO IDMS STANDARD Performed By: #### 3 016-3, 27201-0, 3051-0, HA1C, 3024-7, CMP #### [facility] ([id number]) [address] [place] [address] GFR/1.73 sq M.predicted among non-blacks MDRD (S/P/Bld) [Vol rate/Area] 76 mL/min/{1.73_m2} Normal >59 [facility] Comment on above: Result Comment: Reported eGFR is based on the CKD-EPI 2020 equation that does not use a race coefficient. Performed By: #### 3 016-3, 71124-6, 305-0, HA1C, 4-7, CMP #### [facility] ([id number]) [address] [place] [address] Glucose [Mass/Vol] 87 mg/dL Normal 65-99 [facility] Comment on above: Performed By: #### 3 016-3, 82988-4, 305-0, HA1C, 4-7, CMP #### [facility] ([id number]) [address] [place] [address] Potassium [Moles/Vol] 4.1 mmol/L Normal 3.5-5.0 [facility] Comment on above: Performed By: #### 3 016-3, 07073-5, 305-0, HA1C, 4-7, CMP #### [facility] ([id number]) [address] [place] [address] Protein [Mass/Vol] 7.2 g/dL Normal 6.0-8.0 [facility] Comment on above: Performed By: #### 3 016-3, 47367-1, 3051-0, HA1C, 3024-7, CMP #### [facility] ([id number]) [address] [place] [address] Sodium [Moles/Vol] 137 mmol/L Normal 134-146 [facility] Comment on above: Performed By: #### 3 016-3, 26925-6, 3051-0, HA1C, 3024-7, CMP #### [facility] ([id number]) [address], [address] [place] [address] Urea nitrogen [Mass/Vol] 12 mg/dL Normal 5-23 [facility] Comment on above: Performed By: #### 3 016-3, 81706-8, 3051-0, HA1C, 3024-7, CMP #### [facility] ([id number]) [address], [address] [place] [address] FREE T3on 04-10-2024 Free T3 [Mass/Vol] 3.80 pg/mL Normal 2.50-3.90 [facility] Comment on above: Performed By: #### 3 016-3, 05110-1, 305-0, HA1C, 3024-7, CMP #### [facility] ([id number]) [address], [address] [place] [address] FREE T4on 04-10-2024 Free T4 [Mass/Vol] 0.81 ng/dL Normal 0.61-1.60 [facility] Comment on above: Performed By: #### 3 016-3, 33359-6, 305-0, HA1C, 3024-7, CMP #### [facility] ([id number]) [address], [address] [place] [address] HGB A1C (GLYCO-HGB)on 2023 Glucose [Mass/Vol] 123 mg/dL Normal [facility] Comment on above: Performed By: #### 3 016-3, 68727-4, 3051-0, HA1C, 3024-7, CMP #### [facility] ([id number]) [address], [address] [place] [address] HbA1c (Bld) [Mass fraction] 5.9 % High 4.4-5.6 [facility] Comment on above: Result Comment: NOTE ADA Guidelines Result HgbA1c Normal : less than 5.7 % Prediabetes : 5.7 % to 6.4 % Diabetes : > 6.4 % Use with caution in patients with abnormal hemoglobin variants as the half-life of red blood cells and in vivo glycation rates are affected. Performed By: #### 3 016-3, 82507-5, 3051-0, HA1C, 3024-7, CMP #### [facility] ([id number]) [address], [address] [place] [address] Lipid 1996 panelon 4 Cholesterol [Mass/Vol] 184 mg/dL Normal 150-200 [facility] Comment on above: Performed By: #### 3 016-3, 38412-3, 3051-0, 1C, 3024-7, CMP #### [facility] ([id number]) [address], [address] [place] [address] Cholesterol in HDL [Mass/Vol] 50 mg/dL Normal >39 [facility] Comment on above: Result Comment: HDL <40 mg/dL - High Risk HDL > or = 40mg/dL- Desirable HDL >60 mg/dL - Negative Risk Performed By: #### 3 016-3, 63491-3, 3051-0, HA, 3024-7, CMP #### [facility] ([id number]) [address], [address] [place] [address] Cholesterol in LDL [Mass/Vol] 95 mg/dL Normal <130 [facility] Comment on above: Result Comment: LDL <100 mg/dL - Desirable LDL >160 mg/dL - High Risk Performed By: #### 3 016-3, 32799-6, 3051-0, HA1C, 3023-7, CMP #### [facility] ([id number]) [address], [facility] [address] [place] [address] Cholesterol in VLDL [Mass/Vol] 39 mg/dL High 0-30 [facility] Comment on above: Performed By: #### 3 016-3, 46497-6, 3051-0, HA1C, 3024-7, CMP #### [facility] ([id number]) [address], [facility] [address] [place] [address] CHOLESTEROL:HDL 3.7 Normal 1.0-5.0 [facility] Comment on above: Performed By: #### 3 016-3, 86789-5, 3051-0, HA1C, 4-7, CMP #### [facility] ([id number]) [address], [facility] [address] [place] [address] Triglyceride [Mass/Vol] 195 mg/dL High 27-150 [facility] Comment on above: Performed By: #### 3 016-3, 51523-2, 3051-0, HA1C, 3023-7, CMP #### [facility] ([id number]) [address], [facility] [address] [place] [address] TSH Qnon 04-10-2024 TSH 3.92 uIU/mL Normal 0.49-4.67 [facility] Comment on above: Performed By: #### 3 016-3, 73450-7, 3051-0, HA1C, 3024-7, CMP #### [facility] ([id number]) [address], [facility] [address] [place] [address] POCT Urinalysis Auto, W/O Mi croscopyon 02-17-2024 Appearance (U) Normal [facility] External Poct Urine Bilirubin Negative [facility] External Poct Urine Blood Trace [facility] External Poct Urine Character Clear [facility] External Poct Urine Color Yellow [facility] External Poct Urine Glucose Negative [facility] External Poct Urine Hemoglobin Negative [facility] External Poct Urine Ketones Negative [facility] External Poct Urine Leukocyte Esterase Negative [facility] External Poct Urine Nitrite Negative [facility] External Poct Urine Ph 6.0 [facility] External Poct Urine Protein Negative [facility] External Poct Urine Specific [place] 1.025 [facility] External Poct Urine Urobilinogen 0.2 [facility] External Poct Urine Wbc Negative [facility] Interpretation and review of laboratory results Abnormal [facility] URINE CULTUREon 02-17-2024 Bacteria identified Cx Nom (U) CULTURE RESULTS <10,000 ORGANISMS/ML NORMAL URO GENITAL JAMIN Normal [facility] Comment on above: Performed By: #### 6 30-4 #### [facility] ([id number]) [address] [facility], [address] [place] [address] XR Lumbar spine 2 or 3 Views on 02-17-2024 LUMBAR SPINE 3 VIEWS COMPARISON: 06/09/2008 HISTORY: Low back pain radiating to left lower extremity, history of L4-5 surgery. Findings: Transitional lumbosacral anatomy. 4 nonrib-bearing lumbar type vertebral bodies. For the purposes of this exam, inferior most lumbar type vertebral body will be considered L4. There is severe disc space narrowing with endplate degenerative change with sclerosis at what is labeled L3-4. Multilevel facet hypertrophy most prominent involving the mid to lower lumbar spine. Disc space narrowing L4-5 also noted. No evidence for an acute fracture or subluxation. Aortic calcifications. Left pelvic calcifications, most likely uterine fibroids. IMPRESSION: No acute osseous abnormality. Degenerative changes as described. Note that there is transitional lumbosacral anatomy. Finalized by Edmar Valdez MD on 02/17/2024 9:57 AM [facility] Edmar Valdez MD - 02/17/2024 LUMBAR SPINE 3 VIEWS COMPARISON: 06/09/2008 HISTORY: Low back pain radiating to left lower extremity, history of L4-5 surgery. Findings: Transitional lumbosacral anatomy. 4 nonrib-bearing lumbar type vertebral bodies. For the purposes of this exam, inferior most lumbar type vertebral body will be considered L4. There is severe disc space narrowing with endplate degenerative change with sclerosis at what is labeled L3-4. Multilevel facet hypertrophy most prominent involving the mid to lower lumbar spine. Disc space narrowing L4-5 also noted. No evidence for an acute fracture or subluxation. Aortic calcifications. Left pelvic calcifications, most likely uterine fibroids. IMPRESSION: No acute osseous abnormality. Degenerative changes as described. Note that there is transitional lumbosacral anatomy. Finalized by Edmar Valdez MD on 02/17/2024 9:57 AM [email or web address] Radiology Study observation (narrative) [email or web address] XR Lumbar spine 2 or 3 Views Ordered By: Edmar Valdez on 02-17-2024 [facility] Work Phone: XR SPINE LUMBAR 2 OR 3 VWSon 02-17-2024 XR SPINE LUMBAR 2 OR 3 VWS XR SPINE LUMBAR 2 OR 3 VWS LUMBAR SPINE 3 VIEWS COMPARISON: 06/09/2008 HISTORY: Low back pain radiating to left lower extremity, history of L4-5 surgery. Findings: Transitional lumbosacral anatomy. 4 nonrib-bearing lumbar type vertebral bodies. For the purposes of this exam, inferior most lumbar type vertebral body will be considered L4. There is severe disc space narrowing with endplate degenerative change with sclerosis at what is labeled L3-4. Multilevel facet hypertrophy most prominent involving the mid to lower lumbar spine. Disc space narrowing L4-5 also noted. No evidence for an acute fracture or subluxation. Aortic calcifications. Left pelvic calcifications, most likely uterine fibroids. IMPRESSION: No acute osseous abnormality. Degenerative changes as described. Note that there is transitional lumbosacral anatomy. Finalized by Edmar Valdez MD on 02/17/2024 9:57 AM [facility] Surgical Pathologyon 024 Surgical Pathology Normal [facility] Comment on above: Result Comment: [facility] [address] [place] [address] Surgical Pathology Consultation Patient Name:STORM WHITMOREB:1965 (Age: 58)Gender:FTaken:12/23/2023eported:12/25/2023hysician(s):Wolf Royal MD ([phone])Copy To:[facility] CenterAccession #:[id number]. Rec. #:[id number]: #[id number] Final Pathologic Diagnosis Esophagus, biopsy: Squamous mucosa with no significant diagnostic abnormality. No evidence of active inflammation or intraepithelial eosinophils. Report Electronically Signed Out rg/4Rtrista Acosta MD Interpretation performed at [facility], [address] [place] [address], License number: [id number]. Clinical History Esophageal dysphagia. Gross Description Received in formalin labeled HAIM, esophagus biopsy are 5 vazquez bits/strips of soft tissue, ranging from 0.1-0.6 cm in greatest dimension. Filtered and submitted in a single cassette. (1, ns, [id number], m7) MG mjg/12/23/2023NSK Specimen(s) Received Esophagus biopsy Fee Codes(s): 1; 65610 Clinical Supporton Clinical Support [id number] Judson Whitmoremariluz edwards 1965 Date Provider Department Center 01/23/2023 Tamir-YASMEEN RETANA MP REHAB PSY Medical Pavi No family history on file Reason for Visit and Comments: Memory Problems [879] Normal [facility] Letter (Out)on 01-03-2023 Letter (Out) [id number] Judson Whitmoremariluz edwards 1965 Date Provider Department Center 01/03/2023 None-None MP PT Medical Pavi No family history on file Normal [facility] PAP ACOG PANEL 2: 30 to 65on 08-06-2022 . . Normal [facility] Comment on above: Result Comment: Perf ormed at: [facility] Performed By: #### 4 [id number] #### [facility] Laboratory [address] [place] [address] Dr. Chanell Joel Age Gdln ACOG Testing 30-65 Normal [facility] Comment on above: Performed By: #### 4 [id number] #### [facility] Laboratory [address] [place] [address] Dr. Chanell Joel DIAGNOSIS: Comment Normal [facility] Comment on above: Result Comment: NEGA TIVE FOR INTRAEPITHELIAL LESION OR MALIGNANCY. Performed at: [facility] Performed By: #### 4 [id number] #### [facility] Laboratory [address] [place] [address] Dr. Chanell Joel HPV Aptima Negative Normal Negative [facility] Comment on above: Result Comment: This nucleic acid amplification test detects fourteen high-risk HPV types (16,18,31,33,35,39,45,51,52,56,58,59,66,68) without differentiation. Performed at: =G Performed By: #### 4 [id number] #### [facility] Laboratory [address] [place] [address] Dr. Chanell Joel HPV Genotype Reflex Comment Normal [facility] Comment on above: Result Comment: Crit eria not met, HPV Genotype not performed. Performed at: [facility] Performed By: #### 4 [id number] #### [facility] Laboratory [address] [place] [address] Dr. Chanell Joel Methodology: Comment Normal [facility] Comment on above: Result Comment: This liquid based ThinPrep(R) pap test was screened with the use of an image guided system. Performed at: [facility] Performed By: #### 4 [id number] #### [facility] Laboratory [address] [place] [address] Dr. Chanell Joel Note: Comment Normal [facility] Comment on above: Result Comment: The Pap smear is a screening test designed to aid in the detection of premalignant and malignant conditions of the uterine cervix. It is not a diagnostic procedure and should not be used as the sole means of detecting cervical cancer. Both false-positive and false-negative reports do occur. . Performed at: [facility] Performed By: #### 4 [id number] #### [facility] Laboratory [address] [address] [address] Chanell Joel Performed by: Comment Normal [facility] Comment on above: Result Comment: John Jackson, Object Oriented Programmer (ASCP) Performed at: [facility] Performed By: #### 4 [id number] #### [facility] Laboratory [address] [place], [place] [address] Dr. Chanell Joel Specimen adequacy: Comment Normal [facility] Comment on above: Result Comment: Sati sfactory for evaluation. Endocervical component may not be distinguished in cases of atrophy. Performed at: [facility] Performed By: #### 4 [id number] #### [facility] Laboratory [address] [address] [address] Chanell Delgado 06-04-2022 CNOV Office Visit ([facility] ) ----- DELFINA WHITMORE ([id number]) 1965 F Date Time Provider Department 06/04/22 9:40 AM HUSAM JACKSON [facility] During your visit today, we recorded the following information about you: Husam Jackson MD 06/04/2022 1:05 PM Addendum Delfina Whitmore female presents seeking treatment for and further management of acne scarring, large pours, and oil filled bumps . Previous cosmetic procedures or treatment: Yes Botox, Tretinoin Current treatment: Tretinoin, Spa face wash PAST DERM HISTORY: H/O skin disease: No H/O hyertrophic scars or keloids: No H/O cold sores: No H/O Accutane use: No H/O hyperpigmentation: Yes Recent dental work: None reported PE: The patient is alert and oriented x 3; is well appearing and in NAD. Valera skin type: III Glogau photoaging: Type 3 Examination of the face, neck, revealed: Furrowed plaques and rhytides throughout face Scattered on face there are several flesh colored papules with central dell Slight hollowing of face noted at bilateral infraorbital/malar cheeks Photos obtained: yes A/P: 1. Rhytides, photoaging of skin, sebaceous hyperplasia -Discussed etiology, course, management and treatment options including toxin injection, re-surfacing with RF microneedling or Fraxel Dual -Provided reassurance of safety profile in skin of color. Advised risk of scarring, bleeding, infection is a possibility with resurfacing procedures -Discussed associated cosmetic charge of procedures, discussed multiple sessions needed for re-surfacing options discussed -Pt opts for RF microneedling (given desire to target photoaging, scarring and decrease sebum production) -Will re-assess post procedure need for hyfrecation on residual sebaceous hyperplasia -Continue tretinoin (hold post procedure) -Continue doxycycline (continue post procedure) -SPF 30+ daily -Additional information provided in pt AVS Recommend Infini for skin tightening, textural improvement (fine lines, wrinkles) Lengthy discussion about expectations, side effects (eg. scarring, pigmentary changes, infections, acne flare, persistent redness, incomplete improvement), particularly the downtime associated with the treatment. Need for multiple treatments (at least 2-3) Need for anesthetic: 23% lidocaine / 7% tetracaine ointment prior to treating. Quoted $1100 per treatment 2. Volume loss -Discussed etiology, course, management and treatment options including RF microneedling and dermal filler -Pt opts for RF microneedling Pt agrees with treatment plan as discussed Schedule with Dr. Serrano at [place] (patient location preference) Return to clinic PRN Charge code: 100% cosmetic Promise Pantoja PA-C Dermatology Physician Shackler (Training) MARIE Gibbs MD June 04, 2022 Promise Pantoja PA-C 06/04/2022 10:11 AM Signed FOR COSMETIC CONSULT: Dr. Fouzia Serrano - [facility] and [place] (cosmetic passenger tire inspector) Phone number [place]: [phone] Phone number Main: [phone] Cosmetic Dermatology Physician: [facility] Professor Of German: [phone] Infini Pre-Treatment Instructions The following instructions will help you prepare for your treatment day. Avoid sun exposure for approximately one week prior to your treatment. Wear a broad-spectrum sunscreen at least SPF 30 or higher to protect your skin. If you are spray-tanned, please exfoliate to help remove the tanning product in the treatment area prior to your treatment If you have a history of cold sores, be sure that your doctor is notified in advance of your treatment. The doctor will order an anti-viral medication for you to take prior to your treatment. Stop applying any ?irritating? skin products at least one day prior to treatment (including Retin-A, retinol, and bleaching creams like hydroquinone). Eat a normal meal no less than 2 hours before your laser treatment. Arrive 1 hour prior to your appointment time so topical numbing can be applied. Arrive to your treatment with clean skin. Female patients should not wear any makeup/mascara, lotions, powders, perfumes or jewelry on or around the areas being treated. Male patients can shave the morning of their treatment but should not apply lotions or aftershave on or around the areas being treated. If needed, bring your eye glasses. Contact lenses should be removed prior to treatment. [facility] Post-Treatment Instructions Cooling with an ice pack can be used after your treatment to reduce discomfort. You may wash your face the day of treatment with a gentle cleanser and apply a gentle moisturizer. You may wear makeup 24 hours after your treatment Mild crusting might be noted 1 - 5 days following your treatment. Crusts will disappear naturally in several days. (more content not included)... [facility] CBC AUTO DIFFon 05-09-2022 BASO # 0.0 103/ul Normal 0.0-0.1 [facility] Comment on above: Performed By: #### C BC #### [facility] Laboratory [address] [place], [place] [address] Dr. Chanell Joel Basophils/100 WBC (Bld) 0.7 % Normal 0.2-2.0 [facility] Comment on above: Performed By: #### C BC #### [facility] Laboratory [address] [place], [place] [address] Dr. Chanell Joel EO # 0.1 103/ul Normal 0.0-0.7 [facility] Comment on above: Performed By: #### C BC #### [facility] Laboratory [address] [place] [address] Dr. Chanell Joel Eosinophils/100 WBC (Bld) 2.4 % Normal 0.9-7.0 [facility] Comment on above: Performed By: #### C BC #### [facility] Laboratory [address] [place] [address] Dr. Chanell Joel Erythrocyte distribution width (RBC) [Ratio] 14.2 % Normal 11.0-15.0 [facility] Comment on above: Performed By: #### C BC #### [facility] Laboratory [address] [place] [address] Dr. Chanell Joel Hematocrit (Bld) [Volume fraction] 39.0 % Normal 36.0-48.0 [facility] Comment on above: Performed By: #### C BC #### [facility] Laboratory [address] [place] [address] Dr. Chanell Joel Hemoglobin (Bld) [Mass/Vol] 12.9 g/dL Normal 12.0-16.0 [facility] Comment on above: Performed By: #### C BC #### [facility] Laboratory [address] [place] [address] Dr. Chanell Joel IG # 0.01 10e3/ul Normal 0.00-0.03 [facility] Comment on above: Performed By: #### C BC #### [facility] Laboratory [address] [place] [address] Dr. Chanell Joel IG % 0.2 % Normal 0.0-0.5 [facility] Comment on above: Performed By: #### C BC #### [facility] Laboratory [address] [place] [address] Dr. Chanell Joel LYMPH # 2.1 103/ul Normal 1.2-3.8 [facility] Comment on above: Performed By: #### C BC #### [facility] Laboratory [address] [place] [address] Dr. Chanell Joel Lymphocytes/100 WBC (Bld) 37.6 % Normal 20.5-60.0 [facility] Comment on above: Performed By: #### C BC #### [facility] Laboratory [address] [place] [address] Dr. Chanell Joel MANUAL DIFF REQ NO Normal [facility] Comment on above: Performed By: #### C BC #### [facility] Laboratory [address] [place] [address] Dr. Chanell Joel MCH (RBC) [Entitic mass] 28.9 pg Normal 26.7-34.0 [facility] Comment on above: Performed By: #### C BC #### [facility] Laboratory [address] [place] [address] Dr. Chanell Joel MCHC (RBC) [Mass/Vol] 33.1 g/dL Normal 29.9-35.2 [facility] Comment on above: Performed By: #### C BC #### [facility] Laboratory [address] [place] [address] Dr. Chanell Jeol MCV (RBC) [Entitic vol] 87.4 fL Normal 81.0-99.0 [facility] Comment on above: Performed By: #### C BC #### [facility] Laboratory [address] [place] [address] Dr. Chanell Joel MONO # 0.4 103/ul Normal 0.3-0.8 [facility] Comment on above: Performed By: #### C BC #### [facility] Laboratory [address] [place] [address] Dr. Chanell Joel Monocytes/100 WBC (Bld) 6.7 % Normal 1.7-12.0 [facility] Comment on above: Performed By: #### C BC #### [facility] Laboratory [address] [place] [address] Dr. Chanell Joel NEUT # 2.9 103/ul Normal 1.4-6.5 [facility] Comment on above: Performed By: #### C BC #### [facility] Laboratory [address] [place] [address] Dr. Chanell Joel Neutrophils/100 WBC (Bld) 52.4 % Normal 43.0-75.0 [facility] Comment on above: Performed By: #### C BC #### [facility] Laboratory [address] [address] [address] Chanell Joel Platelet mean volume (Bld) [Entitic vol] 10.3 fL Normal 9.5-13.5 [facility] Comment on above: Performed By: #### C BC #### [facility] Laboratory [address] [address] [address] Chanell Joel PLT 315 103/ul Normal 150-450 [facility] Comment on above: Performed By: #### C BC #### [facility] Laboratory [address] [address] [address] Chanell Joel RBC 4.46 106/ul Normal 4.20-5.40 [facility] Comment on above: Performed By: #### C BC #### [facility] Laboratory [address] [place] [address] Dr. Chanell Joel WBC 5.5 103/ul Normal 4.0-11.0 [facility] Comment on above: Performed By: #### C BC #### [facility] Laboratory [address] [place] [address] Dr. Chanell Joel LIPID PROFILEon 05-09-2022 CHOL-HDL RATIO NORM SEE BELOW Normal [facility] Comment on above: Result Comment: 3.3 - 4.4 LOW RISK 4.4 - 7.1 AVERAGE RISK 7.1 - 11.0 MODERATE RISK >11.0 HIGH RISK Performed By: #### L IPID, CMP, TSH #### [facility] Laboratory [address] [place] [address] Dr. Chanell Joel Cholesterol [Mass/Vol] 228 mg/dL Critically high <=200 [facility] Comment on above: Performed By: #### L IPID, CMP, TSH #### [facility] Laboratory [address] [address] [address] Chanell Joel Cholesterol in HDL [Mass/Vol] 58 mg/dL Normal 40-60 [facility] Comment on above: Performed By: #### L IPID, CMP, TSH #### [facility] Laboratory [address] [address] [address] Chanell Joel Cholesterol in LDL [Mass/Vol] 157.4 mg/dL Normal [facility] Comment on above: Performed By: #### L IPID, CMP, TSH #### [facility] Laboratory [address] [address] [address] Chanell Joel Cholesterol.total/ Cholesterol in HDL [Mass ratio] 3.9 {ratio} Normal [facility] Comment on above: Performed By: #### L IPID, CMP, TSH #### [facility] Laboratory [address] [address] [address] Chanell Joel HDL NORMAL > or = 60 mg/dl - LO W CARDIOVASCULAR RISK <40 mg/dl - HIGH CARDIOVASCULAR RISK Normal [facility] Comment on above: Performed By: #### L IPID, CMP, TSH #### [facility] Laboratory [address] [address] [address] Chanell Joel LDL CALC NORMAL SEE BELOW Normal [facility] Comment on above: Result Comment: <100 mg/dl OPTIMAL 100 - 129 mg/dl NEAR OR ABOVE OPTIMAL 130 - 159 mg/dl BORDERLINE HIGH 160 - 189 mg/dl HIGH >190 mg/dl VERY HIGH Performed By: #### L IPID, CMP, TSH #### [facility] Laboratory [address] [address] [address] Chanell Joel Triglyceride [Mass/Vol] 63 mg/dL Normal <=150 [facility] Comment on above: Performed By: #### L IPID, CMP, TSH #### [facility] Laboratory [address] [address] [address] Chanell Joel VLDL CALC 12.6 mg/dL Normal [facility] Comment on above: Performed By: #### L IPID, CMP, TSH #### [facility] Laboratory [address] [address] [address] Chanell Joel PROF 14(COMP METB)on 022 Albumin [Mass/Vol] 4.0 g/dL Normal 3.4-5.0 [facility] Comment on above: Performed By: #### L IPID, CMP, TSH #### [facility] Laboratory [address] [address] [address] Chanell Joel Albumin/Globulin [Mass ratio] 1.2 {ratio} Normal [facility] Comment on above: Performed By: #### L IPID, CMP, TSH #### [facility] Laboratory [address] [address] [address] Chanell Joel ALP [Catalytic activity/Vol] 60 U/L Normal 46-116 [facility] Comment on above: Performed By: #### L IPID, CMP, TSH #### [facility] Laboratory [address] [address] [address] Chanell Joel ALT [Catalytic activity/Vol] 15 U/L Normal 14-59 [facility] Comment on above: Performed By: #### L IPID, CMP, TSH #### [facility] Laboratory [address] [address] [address] Chanell Joel Anion gap [Moles/Vol] 12.3 mmol/L Normal [facility] Comment on above: Performed By: #### L IPID, CMP, TSH #### [facility] Laboratory [address] [place] [address] Dr. Chanell Joel AST [Catalytic activity/Vol] 16 U/L Normal 15-37 [facility] Comment on above: Performed By: #### L IPID, CMP, TSH #### [facility] Laboratory [address] [place] [address] Dr. Chanell Joel Bilirubin [Mass/Vol] 0.6 mg/dL Normal 0.2-1.0 [facility] Comment on above: Performed By: #### L IPID, CMP, TSH #### [facility] Laboratory [address] [place] [address] Dr. Chanell Joel Calcium [Mass/Vol] 9.4 mg/dL Normal 8.5-10.1 [facility] Comment on above: Performed By: #### L IPID, CMP, TSH #### [facility] Laboratory [address] [place] [address] Dr. Chanell Joel Chloride [Moles/Vol] 101 mmol/L Normal 98-107 [facility] Comment on above: Performed By: #### L IPID, CMP, TSH #### [facility] Laboratory [address] [place] [address] Dr. Chanell Joel CO2 [Moles/Vol] 27.7 mmol/L Normal 21.0-32.0 [facility] Comment on above: Performed By: #### L IPID, CMP, TSH #### [facility] Laboratory [address] [address] [address] Chanell Joel Creatinine [Mass/Vol] 0.78 mg/dL Normal 0.55-1.02 [facility] Comment on above: Performed By: #### L IPID, CMP, TSH #### [facility] Laboratory [address] [address] [address] Chanell Joel EGFR-AF COSTA RICAN >60 Normal >=60 [facility] Comment on above: Performed By: #### L IPID, CMP, TSH #### [facility] Laboratory [address] [address] [address] Chanell Joel EGFR-NON AF [place] R[place] >60 Normal >=60 [facility] Comment on above: Performed By: #### L IPID, CMP, TSH #### [facility] Laboratory [address] [address] [address] Chanell Joel Globulin (S) [Mass/Vol] 3.4 g/dL Normal [facility] Comment on above: Performed By: #### L IPID, CMP, TSH #### [facility] Laboratory [address] [address] [address] Chanell Joel Glucose [Mass/Vol] 88 mg/dL Normal 74-106 [facility] Comment on above: Performed By: #### L IPID, CMP, TSH #### [facility] Laboratory [address] [address] [address] Chanell Joel Potassium [Moles/Vol] 4.0 mmol/L Normal 3.5-5.1 [facility] Comment on above: Performed By: #### L IPID, CMP, TSH #### [facility] Laboratory [address] [address] [address] Chanell Joel Protein [Mass/Vol] 7.4 g/dL Normal 6.4-8.2 [facility] Comment on above: Performed By: #### L IPID, CMP, TSH #### [facility] Laboratory [address] [place] [address] Dr. Chanell Joel Sodium [Moles/Vol] 137 mmol/L Normal 136-145 [facility] Comment on above: Performed By: #### L IPID CMP, TSH #### [facility] Laboratory [address] [place] [address] Dr. Chanell Joel Urea nitrogen [Mass/Vol] 10.0 mg/dL Normal 7.0-18.0 [facility] [facility] Comment on above: Performed By: #### L IPID CMP, TSH #### [facility] [address] [place] [address] Dr. Chanell Joel Urea nitrogen/Creatinin e [Mass ratio] 12.8 mg/mg Normal [facility] Comment on above: Performed By: #### L IPID CMP, TSH #### [facility] [address] [place] [address] Dr. Chanell Joel TSHon 05-09-2022 TSH 3.433 uIU/mL Normal 0.358-3.740 [facility] Comment on above: Performed By: #### L IPDILSHAD CMP, TSH #### [facility] [address] [place] [address] Dr. Chanell Joel VITAMIN D 25 OHon 05-09-2022 VIT D 25-OH 50.6 ng/mL Normal [facility] Comment on above: Performed By: #### V ITAD #### [facility] [address] [place] [address] Dr. Chanell Joel VIT D RANGES SEE BELOW Normal [facility] Comment on above: Result Comment: <20 ng/mL Vit D deficient 20 - <30 ng/mL Vit D insufficient 30 - 100 ng/mL Vit D sufficient >100 ng/mL Potential Toxicity Performed By: #### V ITAD #### [facility] [address] [place] [address] Dr. Chanell Joel US PELVISon 04-24-2022 US PELVIS EXAMINATION: US PELV IS HISTORY: Uterine leiomyoma COMPARISON: 06/12/2021 FINDINGS: The uterus is enlarged in size lobular in contour with heterogeneous in echotexture with multiple masses. The uterus measures 9.7 x 9.0 x 9.5 cm. The largest mass measures 4.8 x 4.3 x 4.3 cm. Multiple calcifications The endometrium measures 4 mm, normal The ovaries are not visualized No free fluid IMPRESSION: Enlarged lobular heterogeneous uterus with multiple masses. Uterine fibroids are statistically favored Electronically authenticated by: ADALBERTO BUENO Date: 2022-04-24 20:14 Normal [facility] Phone Msgon 12-19-2021 Phone Msg Entered by DOUGLAS SHAW MD on December 17, 2021 12:26:35 EDT From: DOUGLAS SHAW MD To: [facility]/pharmacy #[id number] Sent: 12/17/2021 12:26:35 EDT Subject: Medication Management Not Approved: Patient needs appointment doxycycline (DOXYCYCLINE MONO 50 MG CAP) TAKE 1 CAPSULE BY MOUTH TWICE A DAY Qty: 180 caps Days Supply: 90 Refills: 1 Substitutions Allowed Route To Pharmacy - [facility]/pharmacy #[id number] Signed by DOUGLAS SHAW MD From: [id number] To: NATASHA HARDWICK MD Sent: December 16, 2021 6:36:28 PM EDT Subject: Medication Management Due: December 01, 2021 5:21:04 PM EDT On Hold Pending Signature Dispensed Drug: doxycycline (doxycycline monohydrate 50 mg oral capsule), TAKE 1 CAPSULE BY MOUTH TWICE A DAY Quantity: 180 caps Days Supply: 90 Refills: 1 Substitutions Allowed Notes from Pharmacy: From: DOUGLAS SHAW MD To: Florecita Viera MA; Sent: 12/17/2021 12:26:50 EDT Subject: FW: Medication Management Due Date/Time: 12/17/2021 18:36:00 EDT last seen 12/05 Sent message advising patient to call office for an appointment. Florecita Viera MA [facility] Phone Msg - From: Florecita Viera MA To: DELFINA WHITMORE Sent: 12/19/2021 08:03:[address] Hardwick received a refill request for your medication. Please call our office at [phone] to schedule a follow up appointment. Thank you [facility] Phone Msgon 05-08-2021 Phone Msg Entered by DOUGLAS SHAW MD on May 08, 2021 17:52:45 EST From: DOUGLAS SHAW MD To: [facility]/pharmacy #[id number] Sent: 05/08/2021 17:52:45 EST Subject: Medication Management Submitted: Complete:naproxen (naproxen 500 mg oral tablet) Signed by DOUGLAS SHAW MD 05/08/2021 17:52:00 EST Approved with modifications: naproxen (NAPROXEN 500 MG TABLET) TAKE 1 TABLET BY MOUTH TWICE A DAY WITH FOOD FOR 1 WEEK THEN NEEDED Qty: 60 tabs Days Supply: 30 Refills: 0 Substitutions Allowed Route To Pharmacy - [facility]/pharmacy #[id number] Patient matched by DOUGLAS SHAW MD on 05/08/2021 17:52:32 EST From: [id number] To: DOUGLAS SHAW MD Sent: May 08, 2021 5:37:39 PM EST Subject: Medication Management Due: May 03, 2021 1:00:07 AM EST On Hold Pending Signature Dispensed Drug: naproxen (naproxen 500 mg oral tablet), TAKE 1 TABLET BY MOUTH TWICE A DAY WITH FOOD FOR 1 WEEK THEN NEEDED Quantity: 60 tabs Days Supply: 30 Refills: 0 Substitutions Allowed Notes from Pharmacy: [facility] Phone Msgon 01-02-2021 Phone Msg - From: David Garcia To: NATASHA HARDWICK MD; Sent: 01/02/2021 16:26:06 EDT Subject: Med Management On hold pending signature Order:famotidine (famotidine 40 mg oral tablet) 1 tabs ORAL BID Qty: 180 tabs Duration: 90 days Refills: 0 Substitutions Allowed Route To Pharmacy - [facility]/pharmacy #[id number] Last seen 10/25/20, next visit 01/24/21 From: NATASHA HARDWICK MD Sent: 01/02/2021 17:12:52 EDT Subject: RE:Med Management Approved Order:famotidine (famotidine 40 mg oral tablet) 1 tabs ORAL BID Qty: 180 tabs Duration: 90 days Refills: 0 Substitutions Allowed Route To Pharmacy - [id number] Signed by NATASHA HARDWICK MD 01/02/2021 17:12:00 EDT [facility] Phone Msg[facility] 12-28-2020 Phone Msg Entered by DOUGLAS SHWA MD on December 28, 2020 08:43:07 EDT From: DOUGLAS SHAW MD To: [id number] Sent: 12/28/2020 08:43:07 EDT Subject: Medication Management Not Approved: Patient should contact Prescriber first naproxen (NAPROXEN 500 MG TABLET) TAKE 1 TABLET BY MOUTH TWICE A DAY WITH FOOD FOR 1 WEEK THEN NEEDED Qty: 60 tabs Days Supply: 30 Refills: 0 Substitutions Allowed Route To Pharmacy - [id number] Patient matched by DOUGLAS SHAW MD on 12/28/2020 08:42:14 EDT From: [id number] To: DOUGLAS SHAW MD Sent: December 28, 2020 12:17:26 AM EDT Subject: Medication Management Due: December 21, 2020 11:53:28 AM EDT On Hold Pending Signature Dispensed Drug: naproxen (naproxen 500 mg oral tablet), TAKE 1 TABLET BY MOUTH TWICE A DAY WITH FOOD FOR 1 WEEK THEN NEEDED Quantity: 60 tabs Days Supply: 30 Refills: 0 Substitutions Allowed Notes from Pharmacy: [facility] CORONAVIRUS 2019 BY PCRon CORONAVIRUS 2019,PCR NOT DETECTED Normal Not Detected [facility] Comment on above: Result Comment: This assay is designed to detect the ORF1ab and/or S genes of SARS-CoV-2 via nucleic acid amplification. A Not Detected result does not preclude 2019-nCoV infection since the adequacy of sample collection and/or low viral burden may result in presence of viral nucleic acids below the clinical sensitivity of this test method. Fact sheet for providers: www.fda.gov/media/916567/download Fact sheet for patients: www.fda.gov/media/620328/download This test has received FDA Emergency Use Authorization (EUA) and has been verified by [facility] ([facility]). This test is only authorized for the duration of time that circumstances exist to justify the authorization of the emergency use of in vitro diagnostic tests for the detection of SARS-CoV-2 virus and/or diagnosis of COVID-19 infection under section 564(b)(1) of the Act, 21 U.S.C. 360bbb-3(b)(1), unless the authorization is terminated or revoked sooner. [facility] is certified under CLIA-88 as qualified to perform high complexity testing. Testing is performed in the [facility] laboratories located at [address] [place] [address]. Performed By: #### C OV19 #### [address] [place] [address] CORONAVIRUS 2019 BY PCRon Lab Specimen Source Nasal, Nasopharyngeal Normal [facility] Comment on above: Performed By: #### C OV19 #### [facility] [address] [place] [address] Provider Note - ED v2on 08-15 Provider Note - ED v2 Provider Note - ED v2: Chart Review: ED NOTES ED NOTES: 54-year-old female presents with 2 days of cough congestion sore throat myalgias intermittent headache. No documented fever. No nausea vomiting. She has no chronic heart or lung disease. Treated for hypertension dyslipidemia thyroid disorder. Afebrile in triage. Pulse ox 97%. REVIEW OF SYSTEMS: All other systems have been reviewed and are negative for complaint, except as noted in the HPI. PHYSICAL EXAM: General: Vitals noted. No distress. Constitutional: Well appearing, well nourished, awake, alert, and in no apparent distress. Skin: Intact, warm and dry skin. HENT: Normocephalic, atraumatic, No facial asymmetry. Hearing grossly intact. Mouth and pharynx clear no pharyngeal swelling erythema or exudate. Uvula midline no shift. No trismus. Normal phonation. Swallows and speaks without difficulty. Eyes: PERRL, EOM's intact without pain or diplopia. Conjunctiva clear with no redness or exudates. Cornea clear, Eyelids without lesions. No scleral icterus. Neck: Supple, full range of motion, no asymmetry or obvious swelling, no stridor. No meningismus. No cervical adenopathy. No torticollis. Cardiovascular: Blood pressure noted. Normal heart rate. Regular in rhythm Respiratory: No respiratory distress. Easy unlabored respirations. Speaks easily and clearly in full sentences. CTA Musculoskeletal: Full range of motion of all extremities, symmetrical strength in all major muscle groups. No obvious deformities. Vascular: No cyanosis, no pallor Neurological: Normal mental status, alert coherent and appropriate, no facial asymmetry, no motor deficits. Ambulatory Psychiatric: Appropriate mood and affect, Judgement and insight appropriate Disclaimer: Portions of this note were dictated by speech recognition. An attempt at proof reading was made to minimize errors. Errors in registered nurse may be present. Please call if questions. HISTORY OF PRESENTING ILLNESS DELFINA is a 54 year old Female and was seen by me at 27-Aug-2019 17:32 for a chief complaint of cough . Triage Information: Most recent Vital Sign Value Date Temp (F): 98.6 08-27-2019 17:28 Temp (C): 37 08-27-2019 17:28 Heart Rate (beats/min): 73 08-27-2019 17:28 Respirations (breaths/min): 16 08-27-2019 17:28 SpO2 (%): 97 08-27-2019 17:28 BP Systolic (mm Hg): 122 08-27-2019 17:28 BP Diastolic (mm Hg): 76 08-27-2019 17:28 PAST MEDICAL HISTORY ATTESTATION: I have reviewed and confirmed nurse's/medic's notes for patient's medications, allergies, medical history, and surgical history ALLERGIES/INTOLERANCES: Allergy Allergen: penicillin Type: Drug Reaction: Anaphylaxis Allergen: Hydrogen Peroxide Type: Drug Reaction: Swelling/Edema HEALTH HISTORY: No documented data. OUTPATIENT MEDICATIONS: Home Medications Review Status for Reconciliation: Not Done Med Status: Patient Currently Takes Medications Drug Name: benzonatate 200 mg oral capsule Instructions: 1 cap(s) orally 3 times a day, As Needed Drug Name: oseltamivir 75 mg oral capsule Instructions: 1 cap(s) orally 2 times a day Drug Name: ibuprofen 600 mg oral tablet Instructions: 1 tab(s) orally every 8 hours, As Needed Drug Name: ZyrTEC 10 mg oral tablet Instructions: 1 tab(s) orally once a day SIGNIFICANT EVENTS: Past Medical History Description:Hypertension (HTN) Past Surgical History Description:Back surgery Additional Notes:x 3 INTERACTIVE MEDIA MARKETING STRATEGIST: Is : no(1) Is : no(1) RESULTS/VITAL SIGNS VITAL SIGNS: T PRBP SpO2O2(LPM) %FiO2 Method 27-Aug-2019 17:28:[id number] 97 27-Aug-2019 17:20:[id number]/76 97 MEDICAL DECISION MAKING/ED COURSE MDM/ED COURSE: Decision-Making Template: DDX: URI, influenza, bronchitis, pneumonia, Testing: None. Treatment: Tamiflu Tessalon Motrin decongestant Impression: URI with cough. Possible influenza. Prescribed Tamiflu with 2 day symptoms. Patient's having no respiratory difficulty. No hypoxia. No fever. Stable discharge outpatient management Plan: Findings discussed with the patient. Discussed differential. Will follow-up with the primary physician in the next 7-10 days. Return if worse. They understand return precautions and discharge instructions. Patient and family/friend/caregiver are in agreement with this plan. Disclaimer: This note was dictated by speech recognition. An attempt at proof reading was made to minimize errors. Minor errors in registered nurse may be present. Please call if questions. CLINICAL IMPRESSION Diagnosis/Annotation: ED Dx Name:Influenza Code:J11.1 Dispostion: discharged ATTESTATION CRITICAL CARE TIME Is this a critically ill patient: no Electronic Signatures: Paola Baldwin (PAC) (Signed 28-Aug-2019 07:52) Authored: Provider Note - ED v2 Last Updated: 28-Aug-2019 07:52 by Paola Baldwin (PAC) References: 1. Data Referenced From Triage - ED 27-Aug-2019 17:28 Normal [facility] Risk Screen - Adult Emergenc yon 08-27-2019 Risk Screen - Adult Emergency Preferred Language: Preferred Language: Preferred Language for Discussing Health Care (patient/designee)[place] Islander Advanced Directives: Advance Directive/DNRnot applicable Family Violence Adult: Abuse Screen: Are you or have you been threatened or abused physically, emotionally, or sexually by anyoneno Learning Assessment (Patient): Learning Assessment (Patient): Patient is Able to be Assessed for Learningyes Factors Influencing Readiness to Learnacuteness of illness Factors that Impact Ability to Learnnone Devices/Methods Used to Communicateelectronic communication device Learning Preferencesindividual instruction Cultural Considerationsnone Developmental Considerationsnone Pentecostal Considerationsnone Learning Assessment (Other Learner): Learning Assessment (Other Learner): Other learner availableno Pressure Injury/TB/Substance: Pressure Injury: Pressure Injury Present on Admissionno Do you have a coughno Substance Use Current or Former Historynever: Cigarette/Tobacco, e-Cigarette/Vaping, Alcohol, Street Drugs Admission Risk Screen: Significant IndicatorsComplete CAGE: CAGE: Is this an injured patient at a Trauma Center ([facility]/[place]/ [place]): no Electronic Signatures: Nadia Yousif (CN) (Signed 27-Aug-2019 17:32) Authored: Preferred Language, Advanced Directives, Family Violence Adult, Learning Assessment (Patient), Learning Assessment (Other Learner), Pressure Injury/TB/Substance, CAGE Last Updated: 27-Aug-2019 17:32 by Nadia Yousif (PANTERA) Normal [facility] Triage - EDon 08-27-2019 Triage - ED Quick Triage: Are You no Have You Given In The Last 6 Weeksno Are You Currently Breastfeedingno Chart Review: CHIEF COMPLAINT DELFINA WHITMORE is a Female patient with a chief complaint of cough. Triage Date/Time: 27-Aug-2019 17:20 Vital Signs: Temperature: 98.6F ( 37.0C) taken core Blood Pressure: 122/76 Mean: Heart Rate: 73 Respiratory Rate: 16 Pulse Oximetry: 97% Height: 5 feet 6.00 inches. 167.6 CM Weight: 220.0 pounds. Calculated 99.8 kg. (stated) Calculated BMI (kg/m2): 35.528 Calculated BSA (m2) 2.16 [place] Coma Scale: Best Eye Response: (E4) spontaneous Best Motor Response: (M6) obeys commands Best Verbal Response: (V5) oriented [place] Score: 15 Cough lasting greater than 3 weeks: no Travel outside of [facility]: no Allergies: no Patient has homicidal thoughts: no WALTER: 3V Risk Screens Suicide Risk Screen In the Past Month: Have you wished you were or wished you could go to sleep and not wake up no In the Past Month: Have you had any actual thoughts of killing yourself no In Your Lifetime: Have you ever done anything, started to do anything, or prepared to do anything to end your life no Nice Fall Scale Screening Has the patient fallen before (or is the patient in the ED as a result of a fall) has not had a fall Does the patient have an impaired gait does not have impaired gait Is the patient cognitively impaired not cognitively impaired Interventions: Nice Fall Interventions: *patient oriented to surroundings and call system, * patient/family falls education completed and documented, *patients fall status communicated during bedside handoff, *whiteboard updated, *mode of toileting discussed with patient, *bed in low position with brakes locked, *call light in reach, * non-skid footwear PAIN Pain Scale Used: MARIANNE Past Medical History: Past Medical History Reviewedyes Back surgery: Past Surgical History, x 3, Active Hypertension (HTN): Past Medical History, Active Electronic Signatures: Nadia Yousif (PANTERA) (Signed 27-Aug-2019 17:31) Authored: Triage, Past Medical History Last Updated: 27-Aug-2019 17:31 by Nadia Yousif (PANTERA) Normal [facility] C Reactive Proteinon 018 C reactive protein (CRP) 12.20 mg/L High <10.00 [facility] Comment on above: Performed By: #### E SR, CRP ####[facility] [facility], [place] [address]HulsgrSumma Health [facility] Campus[address]COL[place], [place] [address] ESR Westergrenon 07-15-2017 ESR Westergren 17 mm/hr Normal <30 [facility] Comment on above: Performed By: #### E SR, CRP ####[place] [id number] [facility], [address] [place] [address] MRI SPINE LUMBAR WITHOUT CON TRASTon 07-15-2017 MRI SPINE LUMBAR WITHOUT CONTRAST EXAM: MRI SPINE LUMBAR WITHOUT CONTRAST, 07/15/2017 01:26 AMCOMPARISON: MRI lumbar spine August 28, 2016CLINICAL INDICATIONS: 52 years Female Lumbar back pain radiating to bilateralhips. Subjective weakness of lower extremities. Hx of lumbar spine surgeries x3 in the past.; RELEVANT CLINICAL HISTORY:TECHNIQUE: A series of sagittal and axial multisequence images of the lumbarspine were obtained without intravenous contrast using standard protocol. FINDINGS:Alignment is normal. Vertebral bodies are within normal limits in height. Newly visualized area ofmarrow edema are seen in the L4 and L5 vertebral bodies adjacent to theposterior margin of the intervertebral disc space. Marrow signal is otherwisewithin normal limits.. Paraspinal soft tissues are within normal limits. Conus and cauda equina are within normal limits in signal and position. By levels:L1-L2:No significant disc herniation, canal stenosis, or foraminal compromise.L2-L3:No significant disc herniation, canal stenosis, or foraminal compromise.L3-L4:Disc bulge and conjunction with somewhat bulky facets and ligamenta flava,contributes to mild central spinal stenosis measuring 9 mm centrally in APdimension, however CSF still well preserved in thecal sac and nerve rootsappear normal. Findings also contribute to mild foraminal narrowingbilaterally at this level.L4-L5:Disc bulge with superimposed right paracentral extrusion, extending 7 mminferior to the L5 superior endplate. Disc disease in conjunction with facetand ligamentous hypertrophy contribute to moderate canal narrowing measuring 8mm centrally in AP dimension. Right paracentral disc protrusion abuts thedescending right L5 nerve root..L5-S1:Loss of intervertebral disc height with minimal posterior osteophyteformation. No significant canal narrowing. Bony hypertrophic changes along theleft margin of the canal resultant displacement of the descending left-sidedsacral nerve roots (series 5 image 5). Disc osteophyte complex andfacet/ligamentous hypertrophy result in mild bilateral foraminal narrowing atthis level.IMPRESSION:1. Disc bulge with superimposed right paracentral extrusion at the L4-5level. Disc disease in conjunction with facet and ligamentous hypertrophycontribute to moderate canal narrowing at this level. Right paracentral discprotrusion abuts the descending right L5 nerve root.. There is newlyvisualized marrow edema along the posterior margins of the L4 and L5 vertebralbodies adjacent to the intervertebral disc space. No abnormal fluidsignal/edema within the intervertebral disc space.2. Bony hypertrophic changes along the left margin of the lumbar canal at thelevel of the S1 vertebral body mildly displace the descending left-sidedsacral nerve roots.3. Disc disease and facet/ligamentous hypertrophic changes contribute to mildbilateral foraminal narrowing at the L4-5 and L5-S1 levels. Normal [facility] *Urinalysis (with micro hold ) - EDon 07-14-2017 COMMENT URINE None Normal [facility] Comment on above: Performed By: #### U RINCC ####[facility] [place], [place] [address]WdocgwSumma Health [facility] Campus[address] [place] [address] Squamous Epithelial None Normal [facility] Comment on above: Performed By: #### U RINCC ####[facility] [facility], [place] [address]ZwnumeSumma Health [facility] Campus[address]COLCHILDREN'S MERCY HOSPITALUS, [place] [address] Urine, bacteria in sediment Trace Abnormal Absent [facility] Comment on above: Performed By: #### U RINCC ####[facility] [facility] [address]ZmwzzySumma Health [facility]ton Campus[address] [place] [address] Urine, erythrocytes in sediment by area 0-2 Normal 0-2 [facility] Comment on above: Performed By: #### U RINCC ####[facility] [facility] [address]SnzfulSumma Health [facility] Campus[address]Saint [facility], [place] [address] Urine, leukocytes in sedmiment 0-5 Normal 0-5 [facility] Comment on above: Performed By: #### U RINCC ####[facility] [facility] [address]CiysyzSumma Health [facility] Campus[address] [facility], [place] [address] Blood Urine Negative Normal Negative [facility] Comment on above: Performed By: #### U RINCC ####[facility] [facility] [address]GjnbanSumma Health [facility] Campus[address] [facility], [place] [address] Nitrites Urine Negative Normal Negative [facility] Comment on above: Performed By: #### U RINCC ####[facility] [facility], [place] [address]HvlpeeSumma Health [facility] Campus[address] [facility], [place] [address] Protein Urine Negative Normal Negative [facility] Comment on above: Performed By: #### U RINCC ####[facility] [facility], [place] [address]OqyhojSumma Health [facility]ton Campus[address] AvSaint [facility], [place] [address] Specific [place] urine <=1.005 Normal 1.001-1.035 [facility] Comment on above: Performed By: #### U RINCC ####[facility] [place] [address], [place] [address]JkvnawSumma Health Barberton Campus[address]CSOUTHWEST MEDICAL [facility], [place] [address] Urine, appearance Clear Normal Clear [facility] Comment on above: Performed By: #### U RINCC ####[facility] [facility] [address]YrtgxeSumma Health [facility] Campus[address] [facility], [place] [address] Urine, color Yellow Normal YEL,DKYEL [facility] Comment on above: Performed By: #### U RINCC ####[facility] [facility], [place] [address]Tkymbr[address] [place], [place] [id number] AvSaint [facility], [place] [address] Urine, glucose presence Negative Normal Negative [facility] Comment on above: Performed By: #### U RINCC ####[facility] [place] [address], [place] [address]Vkl[address] [place], [place] [id number] AvSaint [facility], [place] [address] Urine, ketones presence Negative Normal Negative [facility] Comment on above: Performed By: #### U RINCC ####[facility] [place], [place] [address]IvulnsSumma Health [facility] Campus[address] [place], [place] [address] Urine, leukocyte esterase presence Negative Normal Negative [facility] Comment on above: Performed By: #### U RINCC ####[facility] [place] [address]LaccmxSumma Health Barberton Campus[address] [place] [address] Urine, pH 5.5 [pH] Normal 5.0-7.0 [facility] Comment on above: Performed By: #### U RINCC ####[facility] [place] [address]KzuakrSumma Health [facility] Campus[address] [place] [id number] Urobilinogen urine 0.2 EU/dL Normal <2.0 [facility] Comment on above: Performed By: #### U [facility] ####[facility] [place], [place] [address]DyqhnpSumma Health [facility] Campus[address] [place], [place] [address] Beta HCG (Qual), Urine - CHR Ion 07-14-2017 HCG.beta subunit ( test) Ql (U) Negative Normal Negative [facility] CBC WITH DIFF Dharmesh 2017 Abs Baso 0.04 K/uL Normal 0.01-0.08 [facility] Comment on above: Performed By: #### Keisha THORNEJ ####[place] [facility] [place] [address] Abs Eos 0.13 K/uL Normal 0.04-0.36 [facility] Comment on above: Performed By: #### C FADUMOJ ####[place] [facility] [place] [address] 27161 Abs King 0.63 K/uL Normal 0.24-0.86 [facility] Comment on above: Performed By: #### Keisha THORNEJ ####[place] [facility] [place] [address] Basophils/100 WBC Auto (Bld) 0.4 % Normal [facility] Comment on above: Performed By: #### Keisha LANDIS ####[place] [facility] [place] [address]60 DIFFERENTIAL TYPE Electronic Differential Normal [facility] Comment on above: Performed By: #### Keisha THORNEJ ####[place] NEWMAN, [facility] [place] [address] 32872 Eosinophils/100 leukocytes 1.3 % Normal [facility] Comment on above: Performed By: #### Keisha LANDIS ####[place] NEWMAN, [facility] [place] [address] Erythrocytes (RBC) 4.93 10*6/uL Normal 3.93-5.22 [facility] Comment on above: Performed By: #### Keisha THORNEJ ####[place] [facility], [facility] [place] [address] Erythrocytes (RBC) 12.5 % Normal 11.7-14.4 [facility] Comment on above: Performed By: #### C FADUMOJ ####[place] [facility]ITALChenteC[facility] [place] [address] Hematocrit (HCT) 42.8 % Normal 34.1-44.9 [facility] Comment on above: Performed By: #### C FADUMOJ ####[place] [facility] [place] [address] Hemoglobin mass conc (Bld) 14.4 g/dL Normal 11.2-15.7 [facility] Comment on above: Performed By: #### C BCALEXANDERJ ####[place] [facility] [place] [address] Hemoglobin mass conc (Bld) 29.2 pg Normal 25.6-32.2 [facility] Comment on above: Performed By: #### C FADUMOJ ####[place] [facility]ITALChenteC[facility] [place] [address] Hemoglobin mass conc (Bld) 33.6 g/dL Normal 32.2-35.5 [facility] Comment on above: Performed By: #### C BCDFJ ####[place] [facility] [place], [place] [id number] IMMATURE GRANS % 0.2 % Normal [facility] Comment on above: Performed By: #### C BCDFJ ####[place] [facility] [place] [address] IMMATURE GRANS ABSOLUTE 0.02 K/uL Normal 0.00-0.03 [facility] Comment on above: Performed By: #### C BCDFJ ####Kelton CARSONT, [facility] [place] [address]407 Lymphocytes 2.20 10*3/uL Normal 1.18-3.74 [facility] Comment on above: Performed By: #### C BCDFJ ####[place] CCCT, [facility] [place] [address] 98037 Lymphocytes/100 leukocytes 22.4 % Normal [facility] Comment on above: Performed By: #### C BCDFJ ####Kelton CARSONT, [facility] [place] [address] 14231 MCV 86.8 fL Normal 79.4-94.8 [facility] Comment on above: Performed By: #### C BCDFJ ####[place] NEWMAN, [facility] [place] [address] 14256 Monocytes/100 leukocytes 6.4 % Normal [facility] Comment on above: Performed By: #### C BCDFJ ####[place] NEWMAN, [facility] [place] [address] 62370 NEUTROPHIL SEGMENTED 69.3 % Normal [facility] Comment on above: Performed By: #### C BCDFJ ####[place] NEWMAN, [facility] [place] [address] 56948 Nucleated erythrocytes 0.0 /100 WBC Normal 0.0-0.2 [facility] Comment on above: Performed By: #### C BCDFJ ####[place] CCCT, [facility] [place] [address] 10509 Platelet mean volume (PMV) 10.0 fL Normal 9.4-12.3 [facility] Comment on above: Performed By: #### C BCDFJ ####[place] CCCT, [facility] [place] [address] 37075 Platelets 364 10*3/uL Normal 182-369 [facility] Comment on above: Performed By: #### Keisha BCDFJ ####[place] TRENT, [facility] [place] [address] 45294 SEGS + Bands,Absolute 6.79 K/uL High 1.56-6.13 [facility] Comment on above: Performed By: #### Keisha SOLORIODFJ ####[place] NEWMAN, [facility] [place] [address] 32298 WBC (Leukocytes) 9.81 10*3/uL Normal 3.98-10.04 [facility] Comment on above: Performed By: #### Keisha THORNEJ ####[place] NEWMAN, [facility] [place] [address] CHEM 7 ED - CHRIon 8 Anion gap 10 mmol/L Normal 7-17 [facility] BUN/Creatinine Ratio 14 mg/mg Normal [facility] Comment on above: Performed By: #### Keisha SOLORIODFJ ####[place] NEWMAN, [facility] [place] [address] 74507 Chloride 100 mmol/L Normal 98-108 [facility] CO2 25 mmol/L Normal 22-30 [facility] Creatinine 0.92 mg/dL Normal 0.50-1.20 [facility] eGFR (non-black) mL/min/{1.73_m2} Normal >60 [facility] Comment on above: Performed By: #### Keisha SOLORIODFJ ####[place] NEWMAN, [facility] [place] [address] 32243 Glucose mass conc 92 mg/dL Normal 70-99 [facility] Osmolality 276 mOsm/kg Low 278-305 [facility] Potassium molar conc 4.3 mmol/L Normal 3.5-5.0 [facility] Sodium 131 mmol/L Low 133-143 [facility] Urea nitrogen 13 mg/dL Normal 7-22 [facility] Anion gap 14 mmol/L Normal 7-17 [facility] Comment on above: Performed By: #### C BCDFJ ####[place] CCCT, [facility] [place] [address] 58728 Chloride 93 mmol/L Low 98-108 [facility] Comment on above: Performed By: #### C BCDFJ ####[place] CCCT, [facility] [place] [address] 19559 CO2 26 mmol/L Normal 22-30 [facility] Comment on above: Performed By: #### C BCDFJ ####[place] CCCT, [facility] [place] [address] 35407 Creatinine 1.05 mg/dL Normal 0.50-1.20 [facility] Comment on above: Performed By: #### C BCDFJ ####[place] CCCT, [facility] [place] [address] 04210 eGFR (non-black) 55 mL/min/1.73sqM Low >60 O [facility] Comment on above: Performed By: #### C BCDFJ ####[place] CCCT, [facility] [place] [address] 86974 Glucose mass conc 99 mg/dL Normal 70-99 [facility] Comment on above: Performed By: #### C BCDFJ ####[place] CCCT, [facility] [place] [address] 45045 Osmolality 272 mOsm/kg Low 278-305 [facility] Comment on above: Performed By: #### C BCDFJ ####[place] CCCT, [facility] [place] [address] 94864 Potassium molar conc 4.5 mmol/L Normal 3.5-5.0 [facility] Comment on above: Performed By: #### C BCDFJ ####[place] CCCT, [facility] [place] [address] 13157 Sodium 128 mmol/L Low 133-143 [facility] Comment on above: Performed By: #### C BCDFJ ####[place] [facility], [facility] [place], [place] [address] Urea nitrogen 15 mg/dL Normal 7- [facility] Comment on above: Performed By: #### C BCDFJ ####[place] [facility], [facility] [place], [place] [address] Quant Beta HCG (Preg), serum - CHRIon 07-14-2017 Quant Beta HCG (),ser <2 Normal [facility] Comment on above: Result Comment: Non- : <10 mIU/mLPostmenopause: <10 mIU/mLMale: <10 mIU/mLFEMALE GESTATIONAL AGE2-4 Weeks: 39.1-8,388 mIU/mL5-6 Weeks: 861-88,769 mIU/mL6-8 Weeks: 8,636-218,085 mIU/mL8-10 Weeks: 18,700-244,467 mIU/mL10-12 Weeks: 23,143-181,899 mIU/mL13-27 Weeks: 6,303-97,171 mIU/mL24-40 Weeks: 4,360-74,883 mIU/mLTest results cannot be interpreted as absolute evidence for the presence or absence of malignant disease. XR HIPS BILATERALon 07-14-19 18 XR HIPS BILATERAL EXAM: XR HIPS BILATE RAL 2 VIEWS, 07/14/2017 13:44 PMCOMPARISON: No prior studies available for comparison.CLINICAL INDICATIONS: Left hip painRELEVANT CLINICAL HISTORY: Hip pain FINDINGS:2 images obtained.Soft Tissue: There is no obvious soft tissue swelling. Calcified bodyprojecting over the pelvis likely represents a fibroid.Bone: No displaced fracture is identified. Degenerative changes are seen inthe lower lumbar spine and sacroiliac joints.Hip: The hip joints are anatomically aligned with mild degenerative changes.IMPRESSION: Degenerative changes of the lower lumbar spine, sacroiliac joints, and hipjoints. No displaced fracture or dislocation identified. Normal [facility] US GUIDED BIOPSY BREAST RIGH Ton 06-25-2017 US GUIDED BIOPSY BREAST RIGHT Pathology:Histology results have returned demonstrating benign breast tissue withstromal fibrosis. This finding is concordant with the imaging findingsEXAM: US GUIDED BIOPSY BREAST RIGHT, 06/14/2017 14:23 PMPRE-PROCEDURE DIAGNOSIS: Suspicious mass in the right breastPOST-PROCEDURE DIAGNOSIS: Suspicious mass in the right breastPERFORMING PHYSICIAN: Albina Cortez DOASSISTANT:COMPARISON: Mammogram and right breast ultrasound June 05, 2017FINDINGS:Consent:Foll owing a thorough discussion of the risks, benefits and alternatives of theprocedure written informed consent was obtained. Time out was performed.Position:The patient was placed in a supine position on the US table and a preliminaryscan was obtained. The abnormality again identified in the right breast. Preparation:The patient's skin was cleansed, and the skin and subcutaneous tissuesanesthetized with 1% buffered lidocaine solution superficially and 1 percentlidocaine with epinephrine deeper.Procedure:A 12[facility] vacuum-assisted biopsy device was inserted into the targetarea. Six core samples were obtained. A SMARK-U-SS2 Infinity biopsy clip waspositioned into the site. The biopsy device was removed and handheld pressurewas applied. The estimated blood loss is minimal. The patient tolerated theprocedure well without evidence of immediate complications.Post-proced ure:A right digital mammogram in the ML and CC projections was submitted forreview. This demonstrates biopsy clip in appropriate position.IMPRESSION:Techn ically successful ultrasound-guided biopsy of the breast. Albina Cortez DO was in the room and participated during all stone portions ofthis procedure. Normal [facility] Vital Signs Date Time Vital Sign Value Performing Clinician Faci lity 12-01-2024 10:29-0400 Body mass index (BMI) [Ratio] 32.73 kg/m2 Cati Antonio MD Work Phone: [facility] 12-01-2024 10:29-0400 Body weight 94.8 kg Cait Antonio MD Work Phone: [facility] 12-01-2024 10:29-0400 Diastolic blood pressure 72 mm[Hg] Cait Antonio MD Work Phone: [facility] 12-01-2024 10:29-0400 Systolic blood pressure 118 mm[Hg] Cait Antonio MD Work Phone: [facility] 11-11-2024 09:37-0400 Body height 170.2 cm Sara medina MD Work Phone: [facility] 11-11-2024 09:37-0400 Body mass index (BMI) [Ratio] 34.27 kg/m2 Sara Peña MD Work Phone: [facility] 11-11-2024 09:37-0400 Body weight 99.25 kg Sara mdeina MD Work Phone: [facility] 11-10-2024 11:20-0400 Body mass index (BMI) [Ratio] 34.14 kg/m2 Cait Antonio MD Work Phone: [facility] 11-10-2024 11:20-0400 Body weight 98.88 kg Cait Antonio MD Work Phone: [facility] 11-10-2024 11:20-0400 Diastolic blood pressure 74 mm[Hg] Cait Antonio MD Work Phone: [facility] 11-10-2024 11:20-0400 Systolic blood pressure 120 mm[Hg] Cait Antonio MD Work Phone: [facility] 09-29-2024 14:06-0400 Body height 170.2 cm Craig Wang MD Work Phone: [facility] 09-29-2024 14:06-0400 Body mass index (BMI) [Ratio] 33.99 kg/m2 Craig Wang MD Work Phone: [facility] 09-29-2024 14:06-0400 Body weight 98.43 kg Craig Wang MD Work Phone: [facility] 07-14-2024 15:56-0500 Body height 170.2 cm Craig Wang MD Work Phone: [facility] 07-14-2024 15:56-0500 Body mass index (BMI) [Ratio] 33.99 kg/m2 Craig Wang MD Work Phone: [facility] 07-14-2024 15:56-0500 Body weight 98.43 kg Craig Wang MD Work Phone: [facility] 07-08-2024 16:12-0500 Body mass index (BMI) [Ratio] 33.67 kg/m2 Akhil Smallwood MD Work Phone: [facility] 07-08-2024 16:12-0500 Body weight 97.52 kg Akhil Smallwood MD Work Phone: [facility] 07-08-2024 16:12-0500 Diastolic blood pressure 86 mm[Hg] Akhil Smallwood MD Work Phone: [facility] 07-08-2024 16:12-0500 Heart rate 79 /min Akhil Smallwood MD Work Phone: [facility] 07-08-2024 16:12-0500 SaO2% (BldA) [Mass fraction] 98 % Akhil Smallwood MD Work Phone: [facility] 07-08-2024 16:12-0500 Systolic blood pressure 133 mm[Hg] Akhil Smallwood MD Work Phone: [facility] 05-18-2024 13:33-0500 Body mass index (BMI) [Ratio] 34.44 kg/m2 Sara Peña MD Work Phone: [facility] 05-18-2024 13:33-0500 Body weight 99.75 kg Sara medina MD Work Phone: [facility] 05-18-2024 13:33-0500 Diastolic blood pressure 84 mm[Hg] Sara Peña MD Work Phone: [facility] 05-18-2024 13:33-0500 Heart rate 76 /min Sara medina MD Work Phone: [facility] 05-18-2024 13:33-0500 Systolic blood pressure 125 mm[Hg] Sara Peña MD Work Phone: [facility] 05-12-2024 15:50-0500 Body height 170.2 cm Craig Wang MD Work Phone: [facility] 05-12-2024 15:50-0500 Body mass index (BMI) [Ratio] 33.99 kg/m2 Craig Wang MD Work Phone: [facility] 05-12-2024 15:50-0500 Body weight 98.43 kg Craig Wang MD Work Phone: [facility] 05-12-2024 15:50-0500 Diastolic blood pressure 72 mm[Hg] Craig Wang MD Work Phone: [facility] 05-12-2024 15:50-0500 Heart rate 72 /min Craig Wang MD Work Phone: [facility] 05-12-2024 15:50-0500 SaO2% (BldA) [Mass fraction] 97 % Craig Wang MD Work Phone: [facility] 05-12-2024 15:50-0500 Systolic blood pressure 128 mm[Hg] Craig Wang MD Work Phone: [facility] 04-09-2024 16:00-0400 Body height 170.2 cm Craig Wang MD Work Phone: [facility] 04-09-2024 16:00-0400 Body mass index (BMI) [Ratio] 33.99 kg/m2 Craig Wang MD Work Phone: [facility] 04-09-2024 16:00-0400 Body weight 98.43 kg Craig Wang MD Work Phone: [facility] 04-09-2024 16:00-0400 Diastolic blood pressure 70 mm[Hg] Craig Wang MD Work Phone: [facility] 04-09-2024 16:00-0400 Heart rate 81 /min Craig Wang MD Work Phone: [facility] 04-09-2024 16:00-0400 SaO2% (BldA) [Mass fraction] 98 % Craig Wang MD Work Phone: [facility] 04-09-2024 16:00-0400 Systolic blood pressure 124 mm[Hg] Craig Wang MD Work Phone: [facility] 02-18-2024 11:10-0400 Body height 170.2 cm Craig Wang MD Work Phone: [facility] 02-18-2024 11:10-0400 Body mass index (BMI) [Ratio] 33.36 kg/m2 Craig Wang MD Work Phone: [facility] 02-18-2024 11:10-0400 Body weight 96.62 kg Craig Wang MD Work Phone: [facility] 02-18-2024 11:10-0400 Diastolic blood pressure 72 mm[Hg] Craig Wang MD Work Phone: [facility] 02-18-2024 11:10-0400 Heart rate 68 /min Craig Wang MD Work Phone: [facility] 02-18-2024 11:10-0400 SaO2% (BldA) [Mass fraction] 97 % Craig Wang MD Work Phone: [facility] 02-18-2024 11:10-0400 Systolic blood pressure 124 mm[Hg] Craig Wang MD Work Phone: [facility] 02-17-2024 09:23-0400 Body height 170.2 cm Mariana BARNES Work Phone: [facility] 02-17-2024 09:23-0400 Body mass index (BMI) [Ratio] 33.2 kg/m2 Mariana Muniz APRN-MELISA Work Phone: [facility] 02-17-2024 09:23-0400 Body temperature 98.2 [degF] Mariana Muniz APRN-ZINC PLATER Work Phone: [facility] 02-17-2024 09:23-0400 Body weight 96.16 kg Mariana Muniz APRN-MELISA Work Phone: [facility] 02-17-2024 09:23-0400 Diastolic blood pressure 67 mm[Hg] Mariana Muniz DRIVER RECRUITER-ZINC PLATER Work Phone: [facility] 02-17-2024 09:23-0400 Heart rate 82 /min Mariana Muniz APRN-MELISA Work Phone: [facility] 02-17-2024 09:23-0400 Respiratory rate 16 /min Mariana Muniz APRN-MELISA Work Phone: [facility] 02-17-2024 09:23-0400 SaO2% (BldA) [Mass fraction] 100 % Mariana Muniz APRN-MELISA Work Phone: [facility] 02-17-2024 09:23-0400 Systolic blood pressure 126 mm[Hg] Mariana Muniz APRN-MELISA Work Phone: [facility] 12-16-2023 13:35-0400 Body height 170.2 cm Wolf Roayl MD Work Phone: [facility] 12-16-2023 13:35-0400 Body mass index (BMI) [Ratio] 34.21 kg/m2 Wolf Royal MD Work Phone: [facility] 12-16-2023 13:35-0400 Body weight 99.07 kg Wolf Royal MD Work Phone: [facility] 12-16-2023 13:35-0400 Diastolic blood pressure 71 mm[Hg] Wolf Royal MD Work Phone: [facility] 12-16-2023 13:35-0400 Heart rate 67 /min Wolf Royal MD Work Phone: [facility] 12-16-2023 13:35-0400 Systolic blood pressure 114 mm[Hg] Wolf Royal MD Work Phone: [facility] 12-04-2023 12:07-0400 Body mass index (BMI) [Ratio] 34.16 kg/m2 Sara Peña MD Work Phone: [facility] 12-04-2023 12:07-0400 Body weight 98.93 kg Sara medina MD Work Phone: [facility] 12-04-2023 12:07-0400 Diastolic blood pressure 72 mm[Hg] Sara Peña MD Work Phone: [facility] 12-04-2023 12:07-0400 Heart rate 72 /min Sara medina MD Work Phone: [facility] 12-04-2023 12:07-0400 Systolic blood pressure 111 mm[Hg] Sara Peña MD Work Phone: [facility] 11-07-2023 14:43-0400 Body height 170.2 cm Akhil Smallwood MD Work Phone: [facility] 11-07-2023 14:43-0400 Body mass index (BMI) [Ratio] 33.67 kg/m2 Akhil Smallwood MD Work Phone: [facility] 11-07-2023 14:43-0400 Body weight 97.52 kg Akhil Smallwood MD Work Phone: [facility] 11-07-2023 14:43-0400 Diastolic blood pressure 75 mm[Hg] Akhil Smallwood MD Work Phone: [facility] 11-07-2023 14:43-0400 Heart rate 74 /min Akhil Smallwood MD Work Phone: [facility] 11-07-2023 14:43-0400 SaO2% (BldA) [Mass fraction] 96 % Akhil Smallwood MD Work Phone: [facility] 11-07-2023 14:43-0400 Systolic blood pressure 109 mm[Hg] Akhil Smallwood MD Work Phone: [facility] 08-08-2023 14:26-0500 Body mass index (BMI) [Ratio] 33.67 kg/m2 Akhil Smallwood MD Work Phone: [facility] 08-08-2023 14:26-0500 Body weight 97.52 kg Akhil Smallwood MD Work Phone: [facility] 08-08-2023 14:26-0500 Diastolic blood pressure 70 mm[Hg] Akhil Smallwood MD Work Phone: [facility] 08-08-2023 14:26-0500 Heart rate 64 /min Akhil Smallwood MD Work Phone: [facility] 08-08-2023 14:26-0500 SaO2% (BldA) [Mass fraction] 99 % Akhil Smallwood MD Work Phone: [facility] 08-08-2023 14:26-0500 Systolic blood pressure 131 mm[Hg] Akhil Smallwood MD Work Phone: [facility] 06-27-2023 13:53-0500 Body height 170.2 cm Akhil Smallwood MD Work Phone: [facility] 06-27-2023 13:53-0500 Body mass index (BMI) [Ratio] 33.05 kg/m2 Akhil Smallwood MD Work Phone: [facility] 06-27-2023 13:53-0500 Body weight 95.71 kg Akhil Smallwood MD Work Phone: [facility] 06-27-2023 13:53-0500 Diastolic blood pressure 92 mm[Hg] Akhil Smallwood MD Work Phone: [facility] 06-27-2023 13:53-0500 Heart rate 70 /min Akhil Smallwood MD Work Phone: [facility] 06-27-2023 13:53-0500 SaO2% (BldA) [Mass fraction] 98 % Akhil Smallwood MD Work Phone: [facility] 06-27-2023 13:53-0500 Systolic blood pressure 142 mm[Hg] Akhil Smallwood MD Work Phone: [facility] Encounters Encounter Date Encounter Type Care Provider Facility Start: 12-31-2024 End: 12-31-2024 Office outpatient visit 25 minutes Craig Wang MD Work Phone: [facility] Comment on above: Essential hypertensi on, benign ; Prediabetes; Metabolic syndrome; Non morbid obesity due to excess calories Start: 12-12-2024 End: 12-30-2024 Telephone encounter Cait Antonio MD Work Phone: [facility] Start: 12-11-2024 End: 12-11-2024 ambulatory [facility] Start: 12-10-2024 End: 12-10-2024 Refill Craig Wang MD Work Phone: [facility] Comment on above: Prediabetes Start: 12-05-2024 End: 12-06-2024 Refill Craig Wang MD Work Phone: [facility] Comment on above: Restless legs syndro me Start: 12-02-2024 End: 12-02-2024 ambulatory CRAIG WANG Not Available Start: 12-02-2024 End: 12-02-2024 Office outpatient visit 25 minutes Craig Wang MD Work Phone: [facility] Comment on above: Metabolic encephalop athy (Primary Dx); Attention or concentration deficit; Recurrent major depressive disorder, in partial remission Start: 12-02-2024 End: 12-02-2024 Bamboo flowsheet Craig Wang MD Work Phone: [facility] Start: 12-02-2024 End: 12-02-2024 Bamboo flowsheet Craig Wang MD Work Phone: [facility] Start: 12-01-2024 End: 12-01-2024 Office outpatient visit 10 minutes Cait Antonio MD Work Phone: [facility] Comment on above: Fibroids; Abnormal thyroid blood test; Hormone imbalance; Menopausal symptom; Night sweats; Postmenopausal HRT (hormone replacement therapy); Vaginal atrophy; Mood swings; Brain fog; History of abnormal mammogram Start: 12-01-2024 End: 12-01-2024 ambulatory CAIT ANTONIO Not Available Start: 11-30-2024 End: 11-30-2024 Refill Sara Peña MD Work Phone: [facility] Comment on above: Hypothyroidism due t o Danni's thyroiditis Start: 11-20-2024 End: 11-23-2024 Refill Craig Wang MD Work Phone: [facility] Comment on above: Osteopenia of left f orearm Start: 11-12-2024 End: 11-12-2024 Refill Heike New LPN [facility] of [facility] Start: 11-11-2024 End: 11-11-2024 Office outpatient visit 25 minutes Sara Peña MD Work Phone: [facility], A Department of [facility] Comment on above: Hypothyroidism due t o Danni's thyroiditis (Primary Dx); Prediabetes; Vitamin D deficiency; Class 1 obesity due to excess calories without serious comorbidity with body mass index (BMI) of 34.0 to 34.9 in adult Start: 11-11-2024 End: 11-11-2024 ambulatory SARA NARKRISTA [facility] Start: 11-10-2024 End: 11-10-2024 Refill Avis Shane [facility], [facility] Department of [facility] Comment on above: Heartburn Start: 11-10-2024 End: 11-10-2024 Patient encounter status Cait Antonio MD Work Phone: [facility] Start: 11-10-2024 End: 11-10-2024 Periodic preventive med est patient 40-64yrs Cait Antonio MD Work Phone: [facility] Comment on above: Encounter for gyneco logical examination without abnormal finding (Primary Dx); Encounter for screening mammogram for malignant neoplasm of breast; Osteoporosis, post-menopausal (CMS/HCC); Encounter for screening for cervical cancer; Fibroids; Abnormal thyroid blood test Start: 11-04-2024 End: 11-04-2024 Refill Craig Wang MD Work Phone: [facility] Comment on above: Metabolic syndrome Start: 11-03-2024 End: 11-03-2024 External Result Encounter Cait Antonio MD Work Phone: [facility] External Department Unsolicited Start: 11-03-2024 End: 11-03-2024 External Result Encounter Cait Antonio MD Work Phone: [facility] External Department Unsolicited Start: 11-03-2024 ambulatory CAIT ANTONIO [facility] Start: 10-30-2024 End: 10-30-2024 Orders Only Cait Antonio MD Work Phone: [facility] Start: 10-30-2024 ambulatory [facility] Start: 10-25-2024 End: 10-28-2024 Refill Sara Peña MD Work Phone: [facility], A Department of [facility] Comment on above: Hypothyroidism due t o Danni's thyroiditis Start: 09-29-2024 End: 09-29-2024 ambulatory CRAIG WANG Not Available Start: 09-29-2024 End: 09-29-2024 Bamboo flowsheet Craig Wang MD Work Phone: [facility] Start: 09-29-2024 End: 09-29-2024 Bamboo flowsheet Craig Wang MD Work Phone: [facility] Start: 09-29-2024 End: 09-29-2024 Office outpatient visit 15 minutes Craig Wang MD Work Phone: [facility] Comment on above: Recurrent major depr essive disorder, in partial remission (HCC) (CMS/HCC) (Primary Dx); Attention or concentration deficit Start: 09-19-2024 End: 09-19-2024 Letter encounter [facility] Start: 09-10-2024 End: 09-10-2024 Office outpatient visit 25 minutes Craig Wang MD Work Phone: [facility] Comment on above: Upper respiratory tr act infection, unspecified type (Primary Dx); Recurrent major depressive disorder, in partial remission (HCC) (CMS/HCC); Psychological trauma Start: 09-10-2024 End: 09-10-2024 ambulatory CRAIG WANG Not Available Start: 09-10-2024 End: 09-10-2024 Bamboo flowsheet Craig Wang MD Work Phone: [facility] Start: 09-10-2024 End: 09-10-2024 Bamboo flowsheet Craig Wang MD Work Phone: [facility] Start: 08-05-2024 End: 08-05-2024 Cornelia Peña MD Work Phone: [facility], A Department of [facility] Comment on above: Vitamin D deficiency ; 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 Start: 07-14-2024 End: 07-14-2024 Office outpatient visit 15 minutes Craig Wang MD Work Phone: [facility] Comment on above: Recurrent major depr essive disorder, in partial remission (HCC) (CMS/HCC); Mixed anxiety and depressive disorder; Non morbid obesity due to excess calories Start: 07-14-2024 End: 07-14-2024 ambulatory CRAIG WANG Not Available Start: 07-14-2024 End: 07-14-2024 Mily Wang MD Work Phone: [facility] Start: 07-14-2024 End: 07-14-2024 Renéo ginna Wang MD Work Phone: [facility] Start: 07-08-2024 End: 07-08-2024 ambulatory AKHIL [facility] Start: 07-08-2024 End: 07-08-2024 Office outpatient visit 25 minutes Akhil Smallwood MD Work Phone: [facility] Comment on above: Chronic idiopathic u rticaria (Primary Dx); Food allergy Start: 06-11-2024 End: 06-11-2024 Refill [facility] Friedman [facility] Comment on above: Chronic idiopathic u rticaria Start: 06-07-2024 End: 06-08-2024 Refill Craig Wang MD Work Phone: [facility] Comment on above: Prediabetes Start: 05-22-2024 End: 05-22-2024 Telephone encounter Akhil Smallwood MD Work Phone: [facility] Start: 05-19-2024 End: 05-20-2024 Refill Akhil Smallwood MD Work Phone: [facility] Comment on above: Chronic idiopathic u rticaria Start: 05-18-2024 End: 05-18-2024 Office outpatient visit 25 minutes Sara Peña MD Work Phone: [facility] Comment on above: Hypothyroidism due t o Danni's thyroiditis (Primary Dx); Prediabetes; Vitamin D deficiency Start: 05-18-2024 End: 05-18-2024 ambulatory SARA PEÑA [facility] Comment on above: Vitamin D deficiency ; 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 Start: 05-12-2024 End: 05-12-2024 ambulatory CRAIG WANG Not Available Start: 05-12-2024 End: 05-12-2024 Office outpatient visit 25 minutes Craig Wang MD Work Phone: [facility] Comment on above: Essential hypertensi on, benign (CMS/HCC); Metabolic syndrome; Prediabetes; Non morbid obesity due to excess calories; Osteopenia of multiple sites; Restless legs syndrome; Lumbar back pain with radiculopathy affecting right lower extremity Start: 05-12-2024 End: 05-12-2024 Bamboo flowsheet Craig Wang MD Work Phone: [facility] Start: 05-12-2024 End: 05-12-2024 Bamboo flowsheet Craig Wang MD Work Phone: [facility] Start: 05-11-2024 End: 05-11-2024 Refill Craig Wnag MD Work Phone: [facility] Comment on above: Osteopenia of left f orearm; Metabolic syndrome Start: 04-29-2024 End: 04-30-2024 Refill Carig Wang MD Work Phone: [facility] Comment on above: Osteopenia of left f orearm Start: 04-11-2024 End: 04-13-2024 Refill Craig Wang MD Work Phone: [facility] Comment on above: Osteopenia of left f orearm Start: 04-10-2024 End: 04-10-2024 ambulatory CRAIG WANG [facility] Start: 04-10-2024 Encounter for genera l adult medical examination without abnormal findings CRAIG WANG [facility] Start: 04-09-2024 End: 04-14-2024 Patient encounter status Craig Wang MD Work Phone: [facility] Work Phone: Start: 04-09-2024 End: 04-14-2024 Periodic preventive med est patient 40-64yrs Craig Wang MD Work Phone: [facility] Comment on above: Encounter for [facility] ss examination in adult (Primary Dx); Advance directive discussed with patient; Non morbid obesity due to excess calories; Prediabetes; Screening, lipid; Screening for diabetes mellitus Start: 04-09-2024 End: 04-14-2024 ambulatory CRAIG WANG Not Available Start: 04-09-2024 End: 04-13-2024 Refill Craig Wang MD Work Phone: [facility] Comment on above: Prediabetes Start: 04-01-2024 End: 04-01-2024 Telephone encounter Akhil Smallwood MD Work Phone: [facility] Start: 03-20-2024 End: 03-20-2024 Refill Heike New LPN [facility] Comment on above: Hypothyroidism due t o Danni's thyroiditis Start: 03-17-2024 End: 03-18-2024 Refill Sara Peña MD Work Phone: [facility] Comment on above: Hypothyroidism due t o Danni's thyroiditis Start: 02-18-2024 End: 02-18-2024 ambulatory CRAIG WANG Not Available Start: 02-18-2024 End: 02-18-2024 Office outpatient new 60 minutes Craig Wang MD Work Phone: [facility] Comment on above: Lumbar back pain wit h radiculopathy affecting right lower extremity (Primary Dx); S/P lumbar microdiscectomy; Lumbar paraspinal muscle spasm; Lumbar facet arthropathy; Spinal stenosis of lumbar region without neurogenic claudication; Lumbar foraminal stenosis; Lumbar disc herniation; History of prediabetes Start: 02-17-2024 End: 02-17-2024 ambulatory [facility] Start: 02-17-2024 End: 02-17-2024 ambulatory [facility] Start: 02-17-2024 End: 02-17-2024 Office outpatient new 30 minutes Mariana Muniz DRIVER [employer] Work Phone: [facility] Comment on above: Narrowing of lumbar intervertebral disc space (Primary Dx) Start: 01-17-2024 End: 01-17-2024 Refill Amy Kitchne C[facility] Comment on above: Heartburn (Primary D x) Start: 01-01-2024 End: 01-02-2024 Refill Sara Peña MD Work Phone: [facility] Comment on above: Hypothyroidism due t o Danni's thyroiditis Start: 12-24-2023 End: 12-24-2023 Evaluation and management of inpatient [facility] Juan [facility] Start: 12-23-2023 End: 12-24-2023 Evaluation and management of inpatient [facility] Start: 12-18-2023 End: 12-18-2023 ambulatory [facility] Start: 12-16-2023 End: 12-16-2023 Telephone encounter Wolf Royal MD Work Phone: [facility] Start: 12-16-2023 End: 12-16-2023 ambulatory [facility] Start: 12-16-2023 End: 12-16-2023 Office outpatient visit 15 minutes Wolf Royal MD Work [facility] Comment on above: Esophageal dysphagia (Primary Dx) Start: 12-04-2023 End: 12-04-2023 Office consultation new/estab patient 60 min Sara Peña MD Work Phone: [facility] Comment on above: Hypothyroidism due t o Danni's thyroiditis (Primary Dx); Prediabetes Start: 12-04-2023 End: 12-04-2023 [facility] Start: 11-07-2023 End: 11-07-2023 ambulatory [facility] Start: 11-07-2023 End: 11-07-2023 Office outpatient visit 25 minutes Akhil Smallwood MD Work Phone: [facility] Comment on above: Chronic idiopathic u rticaria (Primary Dx); Food allergy Start: 11-01-2023 End: 11-01-2023 Orders Only Cait Antonio MD Work Phone: [facility] Comment on above: Endocrine disorder, unspecified; Menopausal and female climacteric states; Generalized hyperhidrosis Start: 08-13-2023 End: 08-13-2023 Office outpatient visit 25 minutes Norman Stern MD Work Phone: [facility] Comment on above: Sjogren's syndrome w ith keratoconjunctivitis sicca (CMS-HCC) (Primary Dx) Start: 08-08-2023 End: 08-08-2023 Office outpatient visit 25 minutes Akhil Smallwood MD Work Phone: [facility] Comment on above: Chronic idiopathic u rticaria (Primary Dx) Start: 08-08-2023 End: 08-08-2023 ambulatory [facility] Start: 07-25-2023 Refill Britt Marinelli MA [facility] Comment on above: Chronic idiopathic u rticaria Start: 07-02-2023 End: 07-02-2023 ambulatory Micheal Wright MD Work Phone: [facility] Comment on above: Urge incontinence of urine (Primary Dx) Start: 06-27-2023 End: 06-27-2023 Office outpatient visit 25 minutes Akhil Smallwood MD Work Phone: [facility] Comment on above: Chronic idiopathic u rticaria (Primary Dx) Start: 06-24-2023 Telephone encounter Britt Marinelli MA [facility] Start: 06-11-2023 End: 06-11-2023 ambulatory Michael Wright MD Work Phone: [facility] Comment on above: Urge incontinence of urine (Primary Dx) Start: 03-30-2023 Letter encounter Polo wynn Start: 02-01-2023 ambulatory [facility] Start: 01-23-2023 ambulatory [facility] Start: 07-31-2022 End: 07-31-[address] PAOLA AGUILAR . Facility:[facility] Start: 06-04-2022 End: 06-04-2022 ambulatory TEE VALVERDE Facility:[facility] Start: 06-04-2022 End: 06-04-2022 Patient encounter procedure Husam Jackson MD Work Phone: Dermatology Comment on above: Encounter for cosmet ic procedure (Primary Dx) Start: 05-14-2022 ambulatory SHAIKH Carlos Wilson y:[facility] Start: 05-09-2022 End: 05-10-2022 ambulatory SHAIKH Carlos MIRELES Facility:[facility] Start: 04-24-2022 End: 04-25-[address] PAOLA AGUILAR . Facility:[facility] Start: 09-27-2021 End: 09-28-2021 ambulatory LYDIA VELOZ Facility:[facility] Start: 09-25-2018 End: 09-25-2018 Patient encounter procedure NATASHA HARDWICK Facility:[facility] Start: 08-04-2018 End: 08-05-2018 Patient encounter procedure NATASHA HARDWICK Facility:[facility] Start: 04-03-2018 Patient encounter procedure NATASHA ELIZABETH Facility:[id number] Start: 03-17-2018 Patient encounter procedure NATASHA ELIZABETH Facility:[id number] Start: 03-12-2018 Patient encounter procedure NATASHA ELIZABETH Facility:[id number] Start: 03-07-2018 Patient encounter procedure FLORENCE JONES Facility:[facility] Start: 03-06-2018 Patient encounter procedure NATASHA ELIZABETH Facility:[id number] Start: 09-03-2017 Ambulatory BEVERLY ACOSTA [facility] Start: 08-28-2017 Ambulatory TEE VALVERDE [facility] Start: 08-22-2017 Ambulatory TEE VALVERDE [facility] Start: 08-20-2017 [facility] Start: 08-07-2017 [facility] Start: 08-06-2017 Ambulatory SUGEY OWENS [facility] Start: 07-22-2017 Ambulatory BEVERLY ACOSTA [facility] Start: 07-14-2017 End: 07-15-2017 [facility] Procedures Date Procedure Procedure Detail Performing Clinician Start: 11-03-2024 Assay of progesterone P lyn Antonio MD Work Phone: Start: 03-05-2024 Mammography Craig porter MD Work Phone: Start: 02-17-2024 Urnls dip stick/tabl et rgnt auto w/o microscopy Mariana Muniz DRIVER RE[employer] Work Phone: Start: 11-07-2023 Follow-up visit Follow-up AKHIL CHANDLER Start: 07-04-2023 Mammography Craig porter MD Work Phone: Start: 04-11-2023 Colonoscopy Craig porter MD Work Phone: Start: 09-28-2022 Adult depression scr eening assessment Michael Wright MD Work Phone: Start: 05-17-2021 Microscopic observat ion [Identifier] in Cervix by Cyto stain Craig Wang MD Work Phone: Start: 05-22-2017 Microscopic observat ion [Identifier] in Cervix by Cyto stain Norman Stern MD Work Phone: Plan of Treatment Date Care Activity Detail Author Start: 2039 RSV vaccine (adult) (1 - 1-dose 75+ series) RSV vaccine (adult) (1 - 1-dose 75+ series) [facility] Start: 04-11-2033 Screening for malignant neoplasm of colon [facility] Start: 02-10-2030 DTaP,Tdap and Td Vaccines (2 - Td or Tdap) DTaP,Tdap and Td Vaccines (2 - Td or Tdap) [facility] Start: 11-10-2029 Screening for malignant neoplasm of cervix [facility] Start: 03-24-2027 LIPID SCREEN LIPID SCREEN [facility] Start: 11-11-2025 Adult BMI Screening Adult BMI Screening [facility] Start: 11-11-2025 Tobacco Screening Tobacco Screening [facility] Start: 07-08-2025 Adult BMI Screening Adult BMI Screening [facility] Start: 05-19-2025 End: 05-19-2025 Patient encounter procedure 05/19/2025 8:30 AM EST Off ice Visit [facility], A Department of [facility] [address] [place] [phone] Sara Peña MD [address] [facility] [place] [address] [facility], A Department of [facility] Start: 05-18-2025 Adult BMI Screening Adult BMI Screening [facility] Start: 05-18-2025 Tobacco Screening Tobacco Screening [facility] Start: 04-26-2025 End: 11-11-2025 Hemoglobin A1c/Hemoglobin.total in Blood Hemoglobin A1c Lab Routine Prediabetes Expected: 04/26/2025 (Approximate), Expires: 11/11/2025 [facility] Comment on above: Expected: 04/26/2025 (Approximate), Expi res: 11/11/2025 Start: 04-26-2025 End: 11-11-2025 Thyrotropin [Units/volume] in Serum or Plasma TSH Lab Routine 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 Expected: 04/26/2025 (Approximate), Expires: 11/11/2025 [facility] Work Phone: Comment on above: Expected: 04/26/2025 (Approximate), Expi res: 11/11/2025 Start: 04-26-2025 End: 11-11-2025 Thyroxine (T4) free [Mass/volume] in Serum or Plasma T4, free Lab Routine 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 Expected: 04/26/2025 (Approximate), Expires: 11/11/2025 [facility] Comment on above: Expected: 04/26/2025 (Approximate), Expi res: 11/11/2025 Start: 04-26-2025 End: 11-11-2025 Triiodothyronine (T3) Free [Mass/volume] in Serum or Plasma T3, free Lab Routine 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 Expected: 04/26/2025 (Approximate), Expires: 11/11/2025 [facility] Comment on above: Expected: 04/26/2025 (Approximate), Expi res: 11/11/2025 Start: 04-26-2025 End: 11-11-2025 Vitamin D 25 hydroxy Vitamin D 25 hydroxy Lab Routine Vitamin D deficiency Expected: 04/26/2025 (Approximate), Expires: 11/11/2025 [facility] Comment on above: Expected: 04/26/2025 (Approximate), Expi res: 11/11/2025 Start: 03-05-2025 Screening for malignant neoplasm of breast Mammogram [facility] Start: 02-16-2025 Adult BMI Screening Adult BMI Screening [facility] Start: 02-16-2025 Tobacco Screening Tobacco Screening [facility] Start: 02-15-2025 Influenza vaccination Influenza Vaccine [facility] Start: 01-14-2025 End: 01-14-2025 Patient encounter procedure 01/14/2025 2:30 PM EDT Off ice Visit [facility] [address] [place] [phone] Jen Clifford, ALLERGY NURSE [address] [place] [phone] [facility] 210 Start: 01-14-2025 End: 01-14-2025 Telemedicine consultation with patient 01/14/2025 9:30 AM EDT Telemedicine [facility] [address] [facility] 100 [place] [address] Craig Wang MD [address] [place] [address] (Fax) [facility] Start: 01-12-2025 End: 01-12-2025 Patient encounter procedure 01/12/2025 4:00 PM EDT Off ice Visit [facility], A Department of [address] [place] [phone] Akhil Smallwood MD [address] [facility] [address] [place] [address] [facility], A Department of [facility] Start: 01-05-2025 End: 01-05-2025 Patient encounter procedure 01/05/2025 4:00 PM EDT Off ice Visit [facility] [address] [place] [address] [address] [place] [phone] Akhil Smallwood MD [address] [facility] [address] [place] [address] [facility] Start: 12-31-2024 End: 12-31-2024 Telemedicine consultation with patient 12/31/2024 8:30 AM EDT Telemedicine [facility] 100 [address] [facility] 100 [place] [address] Craig Wang MD [address] [facility] 100 [place] [address] Essential hypertension, benign ; Prediabetes; Metabolic syndrome; Non morbid obesity due to excess calories [facility] Comment on above: Essential hypertension, benign ; Prediabetes; Metabolic syndrome; Non morbid obesity due to excess calories Start: 12-22-2024 Tobacco Screening Tobacco Screening [facility] Start: 12-15-2024 Adult BMI Screening Adult BMI Screening [facility] Start: 12-10-2024 End: 12-10-2024 [facility] Start: 12-03-2024 Adult BMI Screening Adult BMI Screening [facility] Start: 12-03-2024 Tobacco Screening Tobacco Screening [facility] Start: 12-02-2024 End: 12-02-2024 Patient encounter procedure 12/02/2024 4:00 PM EDT Off ice Visit [facility] [address] [place] [address] Craig Wang MD [address] [place] [address] [facility] Start: 12-01-2024 End: 12-01-2024 Patient encounter procedure 12/01/2024 10:45 AM EDT Consult [facility] [address] [place] [phone] Cait Antonio MD [address] [place] [address] [facility] Start: 12-01-2024 End: 12-01-2024 Professional / ancillary services management 12/01/2024 9:30 AM EDT Ancillary Procedure [facility] [address] [place] [phone] [facility] Start: 11-25-2024 End: 11-25-2024 Patient encounter procedure 11/25/2024 4:30 PM EDT Off ice Visit [facility] [address] [facility] 100 [place] [address] Craig Wang MD [address] [place] [address] (Fax) [facility] Start: 11-11-2024 End: 11-11-2024 Patient encounter procedure 11/11/2024 9:30 AM EDT Off ice Visit [facility], A Department of [facility] [address] [place] [address] Sara Peña MD [address] [facility] [place] [address] [facility], A Department of [facility] Start: 11-10-2024 End: 11-10-2025 DXA Skeletal system Views for bone density DEXA bone density Imaging Routine Osteoporosis, post-menopausal (CMS/HCC) Expected: 11/10/2024, Expires: 11/10/2025 [facility] Work Phone: Comment on above: Expected: 11/10/2024, Expires: Start: 11-10-2024 End: 11-10-2024 Patient encounter procedure [facility] 00 Start: 11-06-2024 Adult BMI Screening Adult BMI Screening [facility] Start: 11-06-2024 Tobacco Screening Tobacco Screening [facility] Start: 10-30-2024 End: 10-30-2024 ambulatory 10/30/2024 8:10 AM EDT Lab [facility] [address] [place] [address] [facility] Start: 10-26-2024 End: 10-30-2025 Cortisol Cortisol Lab Routine Expected: 10/26/2024, Expires: 10/30/2025 [employer] [facility] Work Phone: Comment on above: Expected: 10/26/2024, Expires: Start: 10-26-2024 End: 10-30-2025 Dehydroepiandrosterone Sulfate (DHEAS) Dehydroepiandrosterone Sulfate (DHEAS) Lab Routine Expected: 10/26/2024, Expires: 10/30/2025 [facility] Work Phone: Comment on above: Expected: 10/26/2024, Expires: Start: 10-26-2024 End: 10-30-2025 Estradiol Estradiol Lab Routine Expected: 10/26/2024, Expires: 10/30/2025 [facility] Work Phone: Comment on above: Expected: 10/26/2024, Expires: Start: 10-26-2024 End: 10-30-2025 Progesterone Progesterone Lab Routine Expected: 10/26/2024, Expires: 10/30/2025 [facility] Work Phone: Comment on above: Expected: 10/26/2024, Expires: Start: 10-26-2024 End: 10-30-2025 Testosterone, Free/Total, Male Testosterone, Free/Total, Male Lab Routine Expected: 10/26/2024, Expires: 10/30/2025 [facility] Work Phone: Comment on above: Expected: 10/26/2024, Expires: Start: 10-26-2024 End: 10-30-2025 Thyroglobulin Ab [Units/volume] in Serum or Plasma Thyroglobulin Ab Lab Routine Expected: 10/26/2024, Expires: 10/30/2025 [facility] Work Phone: Comment on above: Expected: 10/26/2024, Expires: Start: 10-26-2024 End: 10-30-2025 Thyroglobulin quantitative w/antibody (tumor marker) Thyroglobulin quantitative w/antibody (tumor marker) Lab Routine Expected: 10/26/2024, Expires: 10/30/2025 [facility] Work Phone: Comment on above: Expected: 10/26/2024, Expires: Start: 10-26-2024 End: 10-30-2025 Thyroid peroxidase antibody Thyroid peroxidase antibod y Lab Routine Expected: 10/26/2024, Expires: 10/30/2025 [facility] Work Phone: Comment on above: Expected: 10/26/2024, Expires: Start: 10-26-2024 End: 10-30-2025 Thyroid profile includes TSH FT4 Thyroid profile includes TSH FT4 Lab Routine Expected: 10/26/2024, Expires: 10/30/2025 [facility] Work Phone: Comment on above: Expected: 10/26/2024, Expires: Start: 10-26-2024 End: 10-30-2025 Thyroxine (T4) free [Mass/volume] in Serum or Plasma T4, free Lab Routine Expected: 10/26/2024, Expires: 10/30/2025 [facility] Work Phone: Comment on above: Expected: 10/26/2024, Expires: Start: 10-26-2024 End: 10-30-2025 Triiodothyronine (T3) Free [Mass/volume] in Serum or Plasma T3, free Lab Routine Expected: 10/26/2024, Expires: 10/30/2025 [facility] Work Phone: Comment on above: Expected: 10/26/2024, Expires: Start: 10-26-2024 End: 10-30-2025 Vitamin D 25 hydroxy Vitamin D 25 hydroxy Lab Routine Expected: 10/26/2024, Expires: 10/30/2025 [facility] Work Phone: Comment on above: Expected: 10/26/2024, Expires: Start: 09-10-2024 End: 09-10-2024 Patient encounter procedure 09/10/2024 3:00 PM EDT Off ice Visit [facility] [address] [place] [address] Craig Wang MD [address] [place] [address] Arrived [facility] Comment on above: Arrived Start: 08-13-2024 Tobacco Screening Tobacco Screening [facility] Start: 08-08-2024 Adult BMI Screening Adult BMI Screening [facility] Start: 07-14-2024 End: 07-14-2024 Patient encounter procedure 07/14/2024 4:00 PM EST Off ice Visit [facility] [address] [place] [address] Craig Wang MD [address] [place] [address] (Fax) Recurrent major depressive disorder, in partial remission (HCC) (CMS/HCC); Mixed anxiety and depressive disorder; Non morbid obesity due to excess calories [facility] Comment on above: Recurrent major depressive disorder, in partial remission (HCC) (CMS/HCC); Mixed anxiety and depressive disorder; Non morbid obesity due to excess calories Start: 07-08-2024 End: 07-08-2024 Patient encounter procedure 07/08/2024 4:00 PM EST Off ice Visit [facility] [address] [place] [address] Akhil Smallwood MD [address] [place] [address] [facility] Start: 07-04-2024 Screening for malignant neoplasm of breast Mammogram [facility] Start: 06-27-2024 Adult BMI Screening Adult BMI Screening [facility] Start: 06-27-2024 Tobacco Screening Tobacco Screening [facility] Start: 05-22-2024 Adult BMI Screening Adult BMI Screening [facility] Start: 05-22-2024 Tobacco Screening Tobacco Screening [facility] Start: 05-17-2024 Screening for malignant neoplasm of cervix [facility] Start: 05-12-2024 End: 05-12-2024 Patient encounter procedure 05/12/2024 3:30 PM EST Off ice Visit [facility] [address] [place] [address] Craig Wang MD [address] [place] [address] (Fax) [facility] Start: 05-07-2024 End: 05-07-2024 Patient encounter procedure 05/07/2024 1:30 PM EST Off ice Visit [facility] [address] [place] [address] Akhil Smallwood MD [address] [facility] [address] [place] [address] [facility] Start: 04-30-2024 End: 04-30-2024 Patient encounter procedure 04/30/2024 9:00 AM EST Off ice Visit [facility] [address] [place] [phone] Sendy Cervantes MD [address] [place] [address] [facility] Start: 04-09-2024 End: 04-09-2025 Comprehensive metabolic 2000 panel - Serum or Plasma Comprehensive metabolic panel Lab Routine Encounter for wellness examination in adult Prediabetes Screening for diabetes mellitus Expected: 04/09/2024 (Approximate), Expires: 04/09/2025 [facility] Work Phone: Comment on above: Expected: 04/09/2024 (Approximate), Expi res: 04/09/2025 Start: 04-09-2024 End: 04-09-2025 Lipid 1996 panel - Serum or Plasma Lipid panel Lab Routine Encounter for wellness examination in adult Screening, lipid Expected: 04/09/2024 (Approximate), Expires: 04/09/2025 [facility] Comment on above: Expected: 04/09/2024 (Approximate), Expi res: 04/09/2025 Start: 04-06-2024 End: 04-06-2024 Patient encounter procedure 04/06/2024 9:15 AM EDT Off ice Visit [facility] [address] [place] [phone] Sara Peña MD [address] [place] [address] [facility] Start: 2024 Hepatitis B (HBV) Vaccine (optional start 60+ years) Hepatitis B (HBV) Vaccine (optional start 60+ years) [facility] Start: 02-24-2024 End: 02-24-2024 Patient encounter procedure 02/24/2024 9:30 AM EDT Off ice Visit [facility] [address] [facility] [address] [place] [address] Craig Wang MD [address] [facility] [place] [address] [facility] Start: 02-16-2024 COVID-19 Vaccine ( season) COVID-19 Vaccine ( season) [facility] Start: 02-16-2024 COVID-19 Vaccine ( season) COVID-19 Vaccine ( season) [facility] Start: 02-16-2024 COVID-19 Vaccine ( season) COVID-19 Vaccine ( season) [facility] Start: 02-16-2024 Influenza vaccination [facility] Start: 12-23-2023 End: 12-23-2023 Admission to same day surgery center 12/23/2023 10:30 AM EDT - 12/23/2023 11:[address] [facility] [address] [place] [address], [address] [place] [address] [place] [address] [place] [address], [address] [place] [address] ESOPHAGOGASTRODUODENOSCOPY DIAGNOSTIC [28183 (CPT )] [facility] Comment on above: ESOPHAGOGASTRODUODENOSCOPY DIAGNOSTIC [4 9469 (CPT )] Start: 12-23-2023 End: 12-23-2023 Esophagogastroduodenoscopy transoral diagnostic ESOPHAGOGASTRODUODENOSCOPY DIAGNOSTIC Esophageal dysphagia 12/23/2023 10:30 AM EDT [facility] Start: 12-23-2023 Subsequent hospital visit by physician 12/23/2023 10:30 AM EDT Hospital Encounter [facility] [address] [facility] [place] [address] Wolf Royal MD [address] [facility], [address] [place] [address] [facility] Start: 12-04-2023 End: 12-04-2023 Patient encounter procedure 12/04/2023 12:00 PM EDT Office Visit [facility] [address] [place] [address] Sara Peña MD [address] [place] [address] [facility] Start: 11-07-2023 End: 11-07-2023 Patient encounter procedure 11/07/2023 2:15 PM EDT Off ice Visit [facility] [address] [place] [phone] Akhil Smallwood MD [address] [place] [address] [facility] Start: 11-01-2023 End: 10-31-2024 Cortisol Cortisol Lab Routine Endocrine disorder, unspecified Menopausal and female climacteric states Generalized hyperhidrosis Expected: 11/01/2023, Expires: 10/31/2024 [facility] Work Phone: Comment on above: Expected: 11/01/2023, Expires: Start: 11-01-2023 End: 10-31-2024 Testosterone, Free/Total, Male [facility] Work Phone: Comment on above: Expected: 11/01/2023, Expires: Start: 11-01-2023 End: 10-31-2024 Vitamin D 25 hydroxy Vitamin D 25 hydroxy Lab Routine Endocrine disorder, unspecified Menopausal and female climacteric states Generalized hyperhidrosis Expected: 11/01/2023, Expires: 10/31/2024 [facility] Work Phone: Comment on above: Expected: 11/01/2023, Expires: Start: 09-29-2023 Depression Screening Depression Screening [facility] Start: 08-13-2023 End: 08-13-2023 Telemedicine consultation with patient 08/13/2023 1:45 PM EST Telemedicine [facility] [address] [address] Norman Stern MD [address] [address] [facility] Start: 08-12-2023 End: 08-12-2023 Patient encounter procedure 08/12/2023 3:15 PM EST Off ice Visit [facility] [address] [place] [phone] Wolf Iraheta MD [address] [place] [address] [facility] Start: 08-08-2023 End: 08-08-2023 Patient encounter procedure 08/08/2023 3:45 PM EST Off ice Visit [facility] [address] [place] [address] [address] [place] [phone] Akhil Smallwood MD [address] [place] [address] [address] [place] [address] [facility] Start: 07-02-2023 End: 07-02-2023 ambulatory 07/02/2023 9:00 AM EST Support Visit [facility] [address] [place] [phone] Michael Wright MD [address] [place] [address] [facility] Start: 02-15-2023 COVID-19 Vaccine ( season) COVID-19 Vaccine ( season) [facility] Start: 02-15-2023 Influenza vaccination [facility] Start: 06-17-2021 DEPRESSION ASSESSMENT DEPRESSION ASSESSMENT [facility] Start: 05-22-2020 Screening for malignant neoplasm of cervix Pap Smear [facility] Start: 06-19-2016 Administration of varicella zoster vaccine Zoster (Shingles) Vaccine (2 of 3) [facility] Start: 2014 Pneumococcal vaccination Pneumococcal Vaccine(s) (50+ yrs) (1 of 1 - PCV) [facility] Start: 2014 Shingles (RZV) Vaccine (1 of 2) Shingles (RZV) Vaccine (1 of 2) [facility] Start: 2014 SHINGRIX VACCINE (1 of 2) SHINGRIX VACCINE (1 of 2) [facility] Start: 2009 Cholesterol [Mass/volume] in Serum or Plasma Cholesterol [facility] Start: 2009 COLOGUARD (FIT-DNA) COLOGUARD (FIT-DNA) [facility] Start: 2009 Colonoscopy COLONOSCOPY [facility] Start: 2009 COLORECTAL CANCER SCREENING COLORECTAL CANCER SCREENING [facility] Start: [address] COLONOGRAPHY [facility] Start: 2009 DIABETES SCREEN DIABETES SCREEN [facility] Start: 2009 FECAL OCCULT BLOOD FECAL OCCULT BLOOD [facility] Start: 2009 Lipid panel [facility] Start: 2009 Screening for malignant neoplasm of colon [facility] Start: 2009 SIGMOIDOSCOPY SIGMOIDOSCOPY [facility] Start: 2004 Mammography MAMMOGRAM [facility] Start: 2004 Screening for malignant neoplasm of breast Mammography [facility] Start: 1994 HPV TESTING HPV TESTING [facility] Start: 1994 Screening for malignant neoplasm of cervix HPV/Cotest [facility] Start: 1985 PAP TESTING PAP TESTING [facility] Start: 1985 Screening for malignant neoplasm of cervix Pap Smear [facility] Start: 1983 Hepatitis A (HAV) Vaccine (optional start 19+ years) Hepatitis A (HAV) Vaccine (optional start 19+ years) [facility] Start: 1983 Tetanus vaccination Tetanus (Td or Tdap) Booster [facility] Start: 1983 Urine microalbumin profile DTAP,TDAP,TD (1 - Tdap) [facility] Start: 1982 Adult BMI Follow Up Plan Adult BMI Follow Up Plan [facility] Start: 1982 HEPATITIS C SCREENING HEPATITIS C SCREENING [facility] Start: 1982 Hepatitis C screening Hepatitis C Antibody [facility] Start: 1982 HIV SCREENING HIV SCREENING [facility] Start: 1982 Tetanus + diphtheria + acellular pertussis vaccine (product) Tdap [facility] Start: 1979 HIV screening HIV Test [facility] Start: 1964 COVID-19 Vaccine (#1) COVID-19 Vaccine (#1) [facility] Start: 1964 HEPATITIS B (1 of 3 - 3-dose series) HEPATITIS B (1 of 3 - 3-dose series) [facility] Start: 1964 Screening for malignant neoplasm of colon [facility] Cortisol [Mass/volum e] in Serum or Plasma Cortisol Lab Routine Endocrine disorder, unspecified Menopausal and female climacteric states Generalized hyperhidrosis 11/01/2023 12:25 PM EDT [facility] End: 06-27-2024 Egg, white IgE Egg, white IgE Lab Routine Chronic idiopathic urticaria 1 Occurrences starting 06/27/2023 until 06/27/2024 [facility] Comment on above: 1 Occurrences starting 06/27/2023 until 06/27/2024 End: 12-15-2024 Esophagogastroduodenoscopy EGD GI Routine Esophageal dysphagia 1 Occurrences starting 12/16/2023 until 12/15/2024 [facility] Work Phone: Comment on above: 1 Occurrences starting 12/16/2023 until 12/15/2024 End: 12-03-2024 Hemoglobin A1c/Hemoglobin.total in Blood Hemoglobin A1c Lab Routine Prediabetes every 4 months for 2 Occurrences starting 12/04/2023 until 12/03/2024 [facility] Comment on above: every 4 months for 2 Occurrences startin g 12/04/2023 until 12/03/2024 IGP, APT HPV,RFX 16/18,45 IGP, A PT HPV,RFX 16/18,45 Lab Routine Encounter for gynecological examination without abnormal finding Encounter for screening for cervical cancer Ordered: 11/10/2024 [facility] Comment on above: Ordered: 11/10/2024 End: 06-27-2024 Milk IgE Milk IgE Lab Routine Chronic idiopathic urticaria 1 Occurrences starting 06/27/2023 until 06/27/2024 [facility] Work Phone: Comment on above: 1 Occurrences starting 06/27/2023 until 06/27/2024 End: 12-03-2024 Thyrotropin [Units/volume] in Serum or Plasma TSH Lab Routine 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 every 4 months for 2 Occurrences starting 12/04/2023 until 12/03/2024 [facility] Work Phone: Comment on above: every 4 months for 2 Occurrences startin g 12/04/2023 until 12/03/2024 End: 05-18-2025 Thyrotropin [Units/volume] in Serum or Plasma TSH Lab Routine 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 every 3months for 2 Occurrences starting 05/18/2024 until 05/18/2025, 1 completed [facility] Work Phone: Comment on above: every 3months for 2 Occurrences starting 05/18/2024 until 05/18/2025, 1 completed End: 12-03-2024 Thyroxine (T4) free [Mass/volume] in Serum or Plasma T4, free Lab Routine 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 every 4 months for 2 Occurrences starting 12/04/2023 until 12/03/2024 [facility] Comment on above: every 4 months for 2 Occurrences startin g 12/04/2023 until 12/03/2024 End: 05-18-2025 Thyroxine (T4) free [Mass/volume] in Serum or Plasma T4, free Lab Routine 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 every 3months for 2 Occurrences starting 05/18/2024 until 05/18/2025, 1 completed [facility] Comment on above: every 3months for 2 Occurrences starting 05/18/2024 until 05/18/2025, 1 completed End: 12-03-2024 Triiodothyronine (T3) Free [Mass/volume] in Serum or Plasma T3, free Lab Routine 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 every 4 months for 2 Occurrences starting 12/04/2023 until 12/03/2024 [facility] Comment on above: every 4 months for 2 Occurrences startin g 12/04/2023 until 12/03/2024 End: 05-18-2025 Triiodothyronine (T3) Free [Mass/volume] in Serum or Plasma T3, free Lab Routine 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 every 3months for 2 Occurrences starting 05/18/2024 until 05/18/2025, 1 completed [facility] Comment on above: every 3months for 2 Occurrences starting 05/18/2024 until 05/18/2025, 1 completed End: 05-18-2025 Vitamin D 25 hydroxy Vitamin D 25 hydroxy Lab Routine Vitamin D deficiency every 3months for 2 Occurrences starting 05/18/2024 until 05/18/2025, 1 completed [facility] Comment on above: every 3months for 2 Occurrences starting 05/18/2024 until 05/18/2025, 1 completed Vitamin D+Metabolite s [Mass/volume] in Serum or Plasma Vitamin D 25 hydroxy Lab Routine Endocrine disorder, unspecified Menopausal and female climacteric states Generalized hyperhidrosis 11/01/2023 12:25 PM EDT [facility] End: 06-27-2024 Wheat IgE Wheat IgE Lab Routine Chroni c idiopathic urticaria 1 Occurrences starting 06/27/2023 until 06/27/2024 [facility] Comment [facility]: 1 Occurrences starting 06/27/2023 until 06/27/2024 Immunizations Immunization Date Immunization Notes Care Provider [facility] 04-12-2022 influenza, injectabl e, quadrivalent, preservative free Craig Wang MD Work Phone: [facility] 04-12-2022 influenza virus vaccine, unspecified formulation Michael Wright MD [facility] 03-15-2020 influenza, injectable,quadrivalent , preservative free, pediatric Craig Wang MD Work Phone: [facility] 02-11-2020 tetanus toxoid, redu alexsander diphtheria toxoid, and acellular pertussis vaccine, adsorbed Craig Wang MD Work Phone: [facility] 04-02-2017 influenza, injectabl e, quadrivalent, preservative free Craig Wang MD Work Phone: [facility] 04-24-2016 zoster vaccine, live Craig Wang MD Work Phone: [facility] 04-24-2016 zoster vaccine, unspecified formulation Michael Wright MD Work Phone: [facility] 04-04-2016 influenza, injectabl e, quadrivalent, preservative free Craig Wang MD Work Phone: [facility] 04-15-2015 influenza, seasonal, injectable Craig Wang MD Work Phone: [facility] 04-17-2014 influenza virus vaccine, unspecified formulation Craig Wang MD Work Phone: [facility] 04-17-2014 influenza virus vaccine, whole virus Craig Wang MD Work Phone: [facility] 04-06-2011 Influenza, injectabl e, Madin [place] Canine Kidney, quadrivalent with preservative Craig Wang MD Work Phone: [facility] 01-01-2011 measles, mumps and rubella virus vaccine Craig Wang MD Work Phone: [facility] Payers Date Payer Category Payer [employer] - Other [facility] [id number] 2024 Unknown [id number] 2023 Private Health Insurance JAEL ROACH [id number] 2021 [facility] Care O (unspecified) [facility] [id number] [id number] 2021 Unknown [id number] 2017 Unknown [id number] 2008 Unknown [id number] 2005 [employer] Blue Shield 1.2.8 [id number] [id number] 2005 Unknown 1964 Unknown [id number] 2.16.840.1.344265.3.579. 2.159 1964 Unknown [id number] 2.16.840.1.826314.3.579. 2.159 1964 Unknown [id number] 2.16.840.1.031054.3.579. 2.159 1964 Unknown [id number] 2.16.840.1.516602.3.579. 2.159 1964 Unknown [id number] 2.16.840.1.380362.3.579. 2.159 1964 Unknown [id number] 2.16.840.1.275693.3.579. 2.159 1964 Unknown [id number] 2.16.840.1.836246.3.579. 2.159 1964 Unknown [id number] 2.16.840.1.730500.3.579. 2.159 1964 Unknown [id number] 2.16.840.1.505206.3.579. 2.593 1964 Unknown [id number] 2.16.840.1.260693.3.579. 2.593 1964 Unknown [id number] 2.16.840.1.654247.3.579. 2.593 1964 Unknown [id number] 2.16.840.1.025214.3.579. 2.593 1964 Unknown [id number] 2.16840.1.030266.3.579. 2.593 1964 Unknown [id number] 2.16.840.1.062188.3.579. 2.1286 1964 Unknown [id number] 2.16.840.1.423705.3.579. 2.128 1964 Unknown [id number] 2.16.840.1.752527.3.579. 2.1286 1964 Unknown [id number] 2.16.840.1.393626.3.579. 2.1286 1964 Unknown [id number] 2.16.840.1.225440.3.579. 2.1285 1964 Unknown [id number] 2.16.840.1.355224.3.579. 2.1285 1964 Unknown [id number] 2.16.840.1.045235.3.579. 2.1285 1964 Unknown [id number] 2.16.840.1.984521.3.579. 2.1285 1964 Unknown [id number] 2.16.840.1.571287.3.579. 2.1285 1964 Unknown [id number] 2.16.840.1.066439.3.579. 2.1285 1964 Unknown [id number] 2.16.840.1.259269.3.579. 2.1285 1964 Unknown [id number] 2.16840.1.238808.3.579. 2.1285 1964 Unknown [id number] 2.16.840.1.341247.3.579. 2.1285 1964 Unknown [id number] 2.16.840.1.644313.3.579. 2.1285 1964 Unknown [id number] 2.16.840.1.283728.3.579. 2.1285 1964 Unknown [id number] 2.16.840.1.092111.3.579. 2.1285 1964 Unknown [id number] 2.16.840.1.703906.3.579. 2.1258 1964 Unknown [id number] 2.16.840.1.067204.3.579. 2.1258 1964 Unknown [id number] 2.16.840.1.778486.3.579. 2.1258 1964 Unknown [id number] 2.16.840.1.862449.3.579. 2.1258 1964 Unknown [id number] 2.16.840.1.558692.3.579. 2.1258 1964 Unknown [id number] 2.16.840.1.022446.3.579. 2.1258 1964 Unknown [id number] 2.16.840.1.265028.3.579. 2.1258 1964 Unknown [id number] 2.16.840.1.997734.3.579. 2.1258 1964 Unknown [id number] 2.16.840.1.089965.3.579. 2.1258 1964 Unknown [id number] 2.16.840.1.411610.3.579. 2.1258 1964 Unknown [id number] 2.16.840.1.804316.3.579. 2.1285 1964 Unknown [id number] 2.16.840.1.595214.3.579. 2.1285 1964 Unknown [id number] 2.16.840.1.018401.3.579. 2.1285 1964 Unknown [id number] 2.16.840.1.787497.3.579. 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) [facility] Start: 1965 Sex Assigned At Not on file [facility] Start: 02-11-2024 End: 09-30-2024 Gender identity Not on file [facility] Start: 08-10-2022 End: 08-15-2023 Tobacco use and exposure Smokeless tobacco non-user [facility] Start: 04-09-2024 End: 12-01-2024 Alcoholic beverage intake Ex-drinker (finding) [facility] Start: 02-11-2024 End: 09-30-2024 History of Social function [facility] How often do you nee d to have someone help you when you read instructions, pamphlets, or other written material from your doctor or pharmacy [SILS] Never [facility] Do you belong to any clubs or organizations such as pentecostalism groups, unions, fraternal or athletic groups, or school groups? Yes [facility] Are you now , , , , never or living with a partner? [facility] How often to you hav e a drink containing alcohol? Never [facility] How hard is it for y ou to pay for the very basics like food, housing, medical care, and heating Very hard [facility] Do you feel stress - tense, restless, nervous, or anxious, or unable to sleep at night because your mind is troubled all the time - these days [OSQ] To some extent [facility] (I/We) worried wheth er (my/our) food would run out before (I/we) got money to buy more. Never true [facility] In the past 12 month s, was there a time when you were not able to pay the mortgage or rent on time? No [facility] Start: 1965 Sex assigned at Female [facility] Start: 11-30-2022 Gender identity Identifies as female gender (finding) [facility] Start: 11-30-2022 Sexual orientation Heterosexua l (finding) [facility] Start: 04-20-2012 End: 01-20-2015 Sex Female (finding) [facility] NEGATED: Highlighted rowStart: NINF History of tobacco use Passive smoker [facility] Functional Status Date Assessment Result Facility 09-30-2024 Patient Health Quest ionnaire 2 item (PHQ-2) [Reported] [facility] Clinical Notes 09-27-2021 to 12-31-2024 Craig Wang MD - 12/31/2024 8:30 AM EDTTelephone Encounter - Cait Antonio MD - 12/30/2024 2:21 PM EDTTelephone Encounter - Cait Antonio MD - 12/30/2024 2:21 PM EDTPatient Instructions Note Date & Type Note Facility 12-31-2024 History of Present illness Narrative Images from the original note were not included. Patient ID: Delfina Whitmore is a 59 y.o. female who presents for: Hypertension Patient is here for follow-up of elevated blood pressure. She is not exercising and is adherent to a low-salt diet. Blood pressure is well controlled at home. Cardiac symptoms: none. Patient denies chest pressure/discomfort and irregular heart beat. Cardiovascular risk factors: diabetes mellitus, dyslipidemia, hypertension, and obesity (BMI >= 30 kg/m2). Use of agents associated with hypertension: thyroid hormones. History of target organ damage: none. 121/82 73, 131/84 67 CP intermittently, As noted, but not does not appear to be cardiac in etiology. Maybe related to the left back pain between the scapula And spinous processes. And C/o right hand/wrist pain after hurting moving garbage. Hyperlipidemia Pt who presents for follow-up of dyslipidemia. A repeat fasting lipid profile was not done. The patient does not use medications that may worsen dyslipidemias (corticosteroids, progestins, anabolic steroids, diuretics, beta-blockers, amiodarone, cyclosporine, olanzapine). Exercise: weekly. Pre-Diabetes Patient presents pre-diabetes Current symptoms include: none. Symptoms have stabilized. Patient denies increased appetite, paresthesia of the feet, polydipsia, polyuria, and visual disturbances. Evaluation to date has included: hemoglobin A1C. Home sugars: patient does not check sugars. A1C was 6.3 done on 10/30/24 Objective The patient is pleasant and in no acute distress The patient has good eye contact and clear speech She is easily moving her wrist and there is no discoloration bruising or redness obvious on the telemedicine visit. 02/18/2024 11:10 AM 04/09/2024 4:00 PM 05/12/2024 3:50 PM 07/14/2024 3:56 PM 09/29/2024 2:06 PM 11/10/2024 11:20 AM 12/01/2024 10:29 AM Vitals BMI 33.36 kg/m2 33.99 kg/m2 33.99 kg/m2 33.99 kg/m2 33.99 kg/m2 34.14 kg/m2 32.73 kg/m2 BSA (m2) 2.14 m2 2.16 m2 2.16 m2 2.16 m2 2.16 m2 2.16 m2 2.12 m2 Systolic 124 124 128 120 118 Diastolic 72 70 72 74 72 Heart Rate 68 81 72 SpO2 97 % 98 % 97 % Height (in) 5' 7 5' 7 5' 7 5' 7 5' 7 Weight (lb) 213 217 217 217 217 218 209 Visit Report Report Report Report Report Report Report Allergies Allergen Reactions Penicillins Anaphylaxis Unknown reaction per patient Bacid Diarrhea and GI intolerance Other reaction(s): GI intolerance Benzoyl Peroxide Swelling Gluten Meal Diarrhea and GI intolerance Other reaction(s): GI intolerance Hydrogen Peroxide Swelling Penicillin G Current Outpatient Medications on File Prior to Visit Medication Sig Dispense Refill alendronate (Fosamax) 35 MG tablet TAKE 1 TABLET BY MOUTH EVERY 7 DAYS IN THE MORNING WITH A FULL GLASS OF WATER ON AN EMPTY STOMACH. DO NOT LIE DOWN FOR 30 MINUTES 12 tablet 0 benzoyl peroxide 5 % gel Apply 1 application topically Daily BIOFLAVANOID Take by mouth Daily cetirizine (ZyrTEC) 10 MG tablet Take by mouth Citicoline (COGNITIVE HEALTH PO) Take by mouth 1 (one) time each day clindamycin (Clindagel) 1 % gel Apply 1 application topically Daily Gcvrjzwnwd-Fzfxk-Gyz-MethylSal (INFLAMMA-K CO) Take by mouth Daily Digestive Enzymes (DIGESTIVE ENZYME PO) Take by mouth Daily EPINEPHrine (Epipen) 0.3 MG/0.3ML injection syringe Inject 0.3 mg into the shoulder, thigh, or buttocks Daily as needed. ergocalciferol (Vitamin D2) 1.25 MG (72127 UT) capsule Take 1 capsule by mouth 1 (one) time per week famotidine (Pepcid) 40 MG tablet Take 40 mg by mouth in the morning. Levomefolate Glucosamine (5-MTHF PO) Take by mouth Daily liothyronine (Cytomel) 5 MCG tablet Take 5 mcg by mouth Daily lisinopril-hydroCHLOROthiazide 20-12.5 MG tablet Take 1 tablet by mouth Daily 90 tablet 1 loratadine (Claritin) 10 MG tablet Take 10 mg by mouth Daily Menaquinone-7 (VITAMIN K2 PO) Take 1 tablet by mouth Daily metFORMIN (Glucophage) 1000 MG tablet Take 1 tablet (1,000 mg) by mouth in the morning and 1 tablet (1,000 mg) in the evening. Take with meals. 120 tablet 0 Misc Natural Products (ADRENAL PO) Take by mouth Daily Multiple Minerals-Vitamins (DOLOMITE PLUS VITAMINS A AND D PO) Take by mouth NON FORMULARY Take by mouth Daily Danni Support ALLERGY NURSE Thyroid 60 MG tablet Take 1 tablet by mouth in the morning. [place] 3-6-9 Fatty Acids (OMEGA DHA PO) Take by mouth Daily pantoprazole (ProtoNix) 40 MG EC tablet Take 40 mg by mouth in the morning. polyethylene glycol, PEG, 3350 (Glycolax) 17 GM/SCOOP powder Take 17 g by mouth Daily rOPINIRole (Requip) 0.25 MG tablet Take 1 tablet (0.25 mg) by mouth at bedtime 90 tablet 0 rosuvastatin (Crestor) 5 MG tablet Take 1 tablet (5 mg) by mouth Daily 90 tablet 0 selenium 200 MCG tablet Take 200 mg by mouth Daily sertraline (Zoloft) 50 MG tablet Take 1.5 tablets (75 mg) by mouth Daily 135 tablet 1 Specialty Vitamins Products (BRAIN PO) Take by mouth Daily Tirosint 88 MCG capsule Take 88 mcg by mouth in the morning. Take before meals. tretinoin (Retin-A) 0.1 % cream Apply 1 application topically at bedtime Vitamin D-Vitamin K (D3 + K2 PO) Take by mouth Daily 5000 D3 500mcg k2 Xolair 150 MG/ML injection Inject 150 mg under the skin every 30 (thirty) days No current facility-administered medications on file prior to visit. 1. Essential hypertension, benign Chronic problem, stable, to goal. We did have a discussion that lisinopril does not help with endothelial dysfunction where losartan could help with that. It may be worthwhile to make that change and she is interested in doing this new prescription. Otherwise good blood pressure control continue to encourage exercise. - losartan-hydroCHLOROthiazide (Hyzaar) 50-12.5 MG tablet; Take 1 tablet by mouth Daily Dispense: 90 tablet; Refill: 1 2. Prediabetes Tolerating medications. Still eating breads however. Discussed some options that would be lower in carbohydrate content. - metFORMIN (Glucophage) 1000 MG tablet; Take 1 tablet (1,000 mg) by mouth 2 (two) times a day with meals Dispense: 180 tablet; Refill: 1 3. Metabolic syndrome As above - rosuvastatin (Crestor) 5 MG tablet; Take 1 tablet (5 mg) by mouth Daily Dispense: 90 tablet; Refill: 1 4. Non morbid obesity due to excess calories She also sent in and we have now on file a bunch of tests ordered by an outside physician. I am not familiar with many of these tests I did go through it in did look at the ones I could be at least familiar width. I did discuss those with her. I encouraged her to truly utilize the physician who ordered this extensive panel. documented in this encounter [facility] 12-30-2024 Telephone encounter Note error [facility] 12-30-2024 Miscellaneous Notes error documented in this encounter [facility] 12-02-2024 History of Present illness Narrative Images from the original note were not included. Patient ID: Delfina Whitmore is a 59 y.o. female who presents for: Copied from previous note: Pt states she is still having what calls brain farts . She also has issues with word salad or trying to find the right words. She has had previous study done by [facility]. She feels like she has issues processing thoughts. She states since her last OV she has added multiple supplements which have been helping with Energy and mood but not with the Brain Farts Objective Appearance: Well-groomed, in no acute distress Abnormal body movements: None Affect: Appropriate and appears to be full range Attention: Good Attitude: Cooperative Degree of awareness of surroundings: Grossly within normal limits Impulse control: Appears to be good Insight: Appears to be good Fund of knowledge; adequate Judgment: Appears to be adequate Perceptual disorders: No perceptual disorders noted Psychomotor activity: Within normal range Speech: Clear, normal variability and rate Thought content: Unremarkable 02/18/2024 11:10 AM 04/09/2024 4:00 PM 05/12/2024 3:50 PM 07/14/2024 3:56 PM 09/29/2024 2:06 PM 11/10/2024 11:20 AM 12/01/2024 10:29 AM Vitals BMI 33.36 kg/m2 33.99 kg/m2 33.99 kg/m2 33.99 kg/m2 33.99 kg/m2 34.14 kg/m2 32.73 kg/m2 BSA (m2) 2.14 m2 2.16 m2 2.16 m2 2.16 m2 2.16 m2 2.16 m2 2.12 m2 Systolic 124 124 128 120 118 Diastolic 72 70 72 74 72 Heart Rate 68 81 72 SpO2 97 % 98 % 97 % Height (in) 5' 7 5' 7 5' 7 5' 7 5' 7 Weight (lb) 213 217 217 217 217 218 209 Visit Report Report Report Report Report Report Report Allergies Allergen Reactions Penicillins Anaphylaxis Unknown reaction per patient Bacid Diarrhea and GI intolerance Other reaction(s): GI intolerance Benzoyl Peroxide Swelling Gluten Meal Diarrhea and GI intolerance Other reaction(s): GI intolerance Hydrogen Peroxide Swelling Penicillin G Current Outpatient Medications on File Prior to Visit Medication Sig Dispense Refill alendronate (Fosamax) 35 MG tablet TAKE 1 TABLET BY MOUTH EVERY 7 DAYS IN THE MORNING WITH A FULL GLASS OF WATER ON AN EMPTY STOMACH. DO NOT LIE DOWN FOR 30 MINUTES 12 tablet 0 benzoyl peroxide 5 % gel Apply 1 application topically Daily BIOFLAVANOID Take by mouth Daily cetirizine (ZyrTEC) 10 MG tablet Take by mouth clindamycin (Clindagel) 1 % gel Apply 1 application topically Daily DTx [employer] (GLP-1 Rubber Stamp Assembler) kit Inject 6 mL under the skin 1 (one) time per week EPINEPHrine (Epipen) 0.3 MG/0.3ML injection syringe Inject 0.3 mg into the shoulder, thigh, or buttocks Daily as needed. ergocalciferol (Vitamin D2) 1.25 MG (13738 UT) capsule Take 1 capsule by mouth 1 (one) time per week famotidine (Pepcid) 40 MG tablet Take 40 mg by mouth in the morning. lisinopril-hydroCHLOROthiazide 20-12.5 MG tablet Take 1 tablet by mouth Daily 90 tablet 1 loratadine (Claritin) 10 MG tablet Take 10 mg by mouth Daily Menaquinone-7 (VITAMIN K2 PO) Take 1 tablet by mouth Daily metFORMIN (Glucophage) 1000 MG tablet Take 1 tablet (1,000 mg) by mouth in the morning and 1 tablet (1,000 mg) in the evening. Take with meals. 180 tablet 0 Multiple Minerals-Vitamins (DOLOMITE PLUS VITAMINS A AND D PO) Take by mouth ALLERGY NURSE Thyroid 60 MG tablet Take 1 tablet by mouth in the morning. [place] 3-6-9 Fatty Acids (OMEGA DHA PO) Take by mouth Daily pantoprazole (ProtoNix) 40 MG EC tablet Take 40 mg by mouth in the morning. polyethylene glycol, PEG, 3350 (Glycolax) 17 GM/SCOOP powder Take 17 g by mouth Daily Rhodiola rosea (RHODIOLA PO) Take 1 tablet by mouth Daily rOPINIRole (Requip) 0.25 MG tablet Take 1 tablet (0.25 mg) by mouth at bedtime 90 tablet 1 rosuvastatin (Crestor) 5 MG tablet Take 1 tablet (5 mg) by mouth Daily 90 tablet 0 selenium 200 MCG tablet Take 200 mg by mouth Daily Semaglutide-Weight Management 0.5 MG/0.5ML solution auto-injector Inject 0.25 mg under the skin once a week sertraline (Zoloft) 50 MG tablet Take 1.5 tablets (75 mg) by mouth Daily 135 tablet 1 Tirosint 88 MCG capsule Take 88 mcg by mouth in the morning. Take before meals. tretinoin (Retin-A) 0.1 % cream Apply 1 application topically at bedtime Xolair 150 MG/ML injection Inject 150 mg under the skin every 30 (thirty) days No current facility-administered medications on file prior to visit. I have independently reviewed and interpreted has appropriate, tests that were performed or ordered by another health director career. These are documented in the electronic health record. These were reviewed with the patient. 1. Metabolic encephalopathy (Primary) Chronic problem that the patient believes is better with some of the supplementation she is taking. She had overt does not bottles of supplementation. I did review each of these and go over with her and there was 1 that was potentially harming her and duplicative and we discontinued this. The others I continue to leave up to her. She brought along some neuropsychological testing she had done. I did review this with her at her request, but this is beyond my level of expertise. I discussed with her if she does have encephalopathy that I think she needs at a minimum a 2nd opinion if not evaluation and management from neurologist. We will go ahead and place a referral to Dr. Baron Lauren. 2. Attention or concentration deficit Overall improved but still a struggle for her. 3. Recurrent major depressive disorder, in partial remission Chronic problem that is vastly improved. She continues to be in counseling and resolving multiple family issues. documented in this encounter [facility] 12-01-2024 History of Present illness Narrative Images from the original note were not included. Cait Antonio MD Obstetrics and Gynecology Patient: Delfina Whitmore : 1965 (59 y.o.) Exam Date: 12/01/2024 Reason for Visit - Chief Complaint Patient presents with Follow-up Follow-up following in-house ultrasound Thyroidperoxidase elevated,thyroiglobulinAB and thyroidperoxidase History of Present Illness The patient presents for follow-up of uterine fibroids. Her condition has shown improvement since the last visit, with a notable reduction in fibroid size and uterine volume. The largest fibroid has decreased from [id number] to [id number], now described as plum-sized compared to the previous small peach-sized. Overall uterine volume has reduced from 155 cm to 108 cm . The patient's fibroid count has increased from 4 to 5, though all are reported to be of similar size. A previously noted polyp is no longer present. The patient has not yet initiated preliminary menopause treatment. There have been no reports of bleeding, which would potentially indicate fibroid growth. The endometrial lining has decreased by half since the last assessment and is now within normal limits. The patient confirms having consulted a primary care physician regarding thyroid issues. No systemic symptoms related to the fibroids have been reported by the patient, and her overall condition is described as stable, not currently requiring hysterectomy. The patient has a medical history of thyroid issues and uterine fibroids. A review of systems indicates negative for vaginal bleeding in the genitourinary system. Visit Vitals OB Status Postmenopausal Smoking Status Never History of Present Illness, Associated Treatments and Results - OB History Para Term AB Living 0 0 0 0 0 0 SAB IAB Ectopic Multiple Live Births 0 0 0 0 0 Constitutional: Negative. HENT: Negative. Eyes: Negative. Respiratory: Negative. Cardiovascular: Negative. Gastrointestinal: Negative. Endocrine: Negative. Genitourinary: Negative. Musculoskeletal: Negative. Skin: Negative. Allergic/Immunologic: Negative. Neurological: Negative. Hematological: Negative. Psychiatric/Behavioral: Negative. Allergies Allergen Reactions Penicillins Anaphylaxis Unknown reaction per patient Bacid Diarrhea and GI intolerance Other reaction(s): GI intolerance Benzoyl Peroxide Swelling Gluten Meal Diarrhea and GI intolerance Other reaction(s): GI intolerance Hydrogen Peroxide Swelling Penicillin G Current Outpatient Medications: alendronate (Fosamax) 35 MG tablet, TAKE 1 TABLET BY MOUTH EVERY 7 DAYS IN THE MORNING WITH A FULL GLASS OF WATER ON AN EMPTY STOMACH. DO NOT LIE DOWN FOR 30 MINUTES, Disp: 12 tablet, Rfl: 0 benzoyl peroxide 5 % gel, Apply 1 application topically Daily, Disp: , Rfl: BIOFLAVANOID, Take by mouth Daily, Disp: , Rfl: cetirizine (ZyrTEC) 10 MG tablet, Take by mouth, Disp: , Rfl: clindamycin (Clindagel) 1 % gel, Apply 1 application topically Daily, Disp: , Rfl: [employer] (GLP-1 Rubber Stamp Assembler) kit, Inject 6 mL under the skin 1 (one) time per week, Disp: , Rfl: EPINEPHrine (Epipen) 0.3 MG/0.3ML injection syringe, Inject 0.3 mg into the shoulder, thigh, or buttocks Daily as needed., Disp: , Rfl: ergocalciferol (Vitamin D2) 1.25 MG (90783 UT) capsule, Take 1 capsule by mouth 1 (one) time per week, Disp: , Rfl: famotidine (Pepcid) 40 MG tablet, Take 40 mg by mouth in the morning., Disp: , Rfl: lisinopril-hydroCHLOROthiazide 20-12.5 MG tablet, Take 1 tablet by mouth Daily, Disp: 90 tablet, Rfl: 1 loratadine (Claritin) 10 MG tablet, Take 10 mg by mouth Daily, Disp: , Rfl: Menaquinone-7 (VITAMIN K2 PO), Take 1 tablet by mouth Daily, Disp: , Rfl: metFORMIN (Glucophage) 1000 MG tablet, Take 1 tablet (1,000 mg) by mouth in the morning and 1 tablet (1,000 mg) in the evening. Take with meals., Disp: 180 tablet, Rfl: 0 Multiple Minerals-Vitamins (DOLOMITE PLUS VITAMINS A AND D PO), Take by mouth, Disp: , Rfl: ALLERGY NURSE Thyroid 60 MG tablet, Take 1 tablet by mouth in the morning., Disp: , Rfl: [place] 3-6-9 Fatty Acids (OMEGA DHA PO), Take by mouth Daily, Disp: , Rfl: pantoprazole (ProtoNix) 40 MG EC tablet, Take 40 mg by mouth in the morning., Disp: , Rfl: polyethylene glycol, PEG, 3350 (Glycolax) 17 GM/SCOOP powder, Take 17 g by mouth Daily, Disp: , Rfl: Rhodiola rosea (RHODIOLA PO), Take 1 tablet by mouth Daily, Disp: , Rfl: rOPINIRole (Requip) 0.25 MG tablet, Take 1 tablet (0.25 mg) by mouth at bedtime, Disp: 90 tablet, Rfl: 1 rosuvastatin (Crestor) 5 MG tablet, Take 1 tablet (5 mg) by mouth Daily, Disp: 90 tablet, Rfl: 0 selenium 200 MCG tablet, Take 200 mg by mouth Daily, Disp: , Rfl: Semaglutide-Weight Management 0.5 MG/0.5ML solution auto-injector, Inject 0.25 mg under the skin once a week, Disp: , Rfl: sertraline (Zoloft) 50 MG tablet, Take 1.5 tablets (75 mg) by mouth Daily, Disp: 135 tablet, Rfl: 1 Tirosint 88 MCG capsule, Take 88 mcg by mouth in the morning. Take before meals., Disp: , Rfl: tretinoin (Retin-A) 0.1 % cream, Apply 1 application topically at bedtime, Disp: , Rfl: Xolair 150 MG/ML injection, Inject 150 mg under the skin every 30 (thirty) days, Disp: , Rfl: Past Medical History: Diagnosis Date Abnormal Pap smear of cervix 1987 Acne ADD (attention deficit disorder) without hyperactivity Allergic Anemia Ankle pain, right Anxiety and depression Arthritis Autoimmune disease (HCC) disconnective tissue disease Calcific Achilles tendonitis Chronic idiopathic urticaria Eating disorder FH: malignant neoplasm of kidney Fibrocystic breast Fibroid, uterine Genital warts 1988 Herniation of lumbar intervertebral disc without myelopathy 04/18/2005 History of Sjogren's disease (HCC) History of transfusion 2001 Hypertension Hypothyroidism Iron deficiency Keratoconjunctivitis sicca Lumbar herniated disc Memory impairment Menopause ovarian failure Night sweats Obesity Obesity (BMI 30.0-34.9) Osteopenia Pneumonia 1965 Post menopausal syndrome Pre-diabetes Restless leg syndrome Sacral pain Shingles Urinary incontinence 2022 Urinary tract infection Uterine fibroid Vaginal atrophy Visual impairment Vitamin D deficiency Past Surgical History: Procedure Laterality Date BI US GUIDED BREAST LOCALIZATION AND BIOPSY LEFT Left 06/14/2017 BI US GUIDED BREAST LOCALIZATION AND BIOPSY LEFT 06/14/2017 BREAST BIOPSY 2020 LUMBAR LAMINECTOMY MYOMECTOMY SPINE SURGERY Family History Problem Relation Name Age of Onset Diabetes Mother Luz Hypertension Mother Luz Stroke Mother Luz Depression Mother Luz Kidney cancer Father Boogie Heart failure Father Boogie Hypertension Father Boogie Stroke Father Boogie Cancer Father Boogie Heart disease Father Boogie Leukemia Sister Karissa Cancer Sister Karissa Miscarriages / Stillbirths Sister Karissa Hypertension Brother Boogie jr Hypertension Brother Daniel Colon cancer Maternal Grandmother Depression Sister Albina Social History Tobacco Use Smoking Status Never Passive exposure: Never Smokeless Tobacco Never Physical Exam - General appearance, mentation, extraocular movements, facial strength and movement, hearing, upper and lower extremity strength and tone, sensation to gross testing, coordination, and gait are normal or at baseline unless noted below. OBGyn Exam 2023 Transvaginal scans of the pelvis were obtained. The uterus is enlarged in size and has an irregular contour and multiple areas of decreased echogenicity throughout the uterus that are felt to represent fibroids. The largest fibroid measures 41 mm x 37 mm x 42 mm. The endometrium measures 4.3 mm in thickness. There appears to be a 7 mm x 4 mm x 6 mm area of increased echogenicity within the endometrium which could represent a polyp. Both ovaries are not visualized. There is no overt adnexal mass. There is no free fluid visible within the pelvis. There are no previous pelvic ultrasound films or reports available for comparison. Today he uterus is enlarged in size and has an irregular contour and multiple areas of decreased echogenicity throughout the uterus that are felt to represent fibroids. The largest fibroid measures 38 mm x 28 mm x 36 mm. Scant intraendometrial fluid is present. The anterior endometrial thickness measures 1.4 mm and the posterior endometrial thickness measures 1.1 mm. Total endometrial thickness measures 2.5 mm. There is an 8 x 3 x 5 mm hyperechoic area within the endometrium, which could represent a polyp. Both ovaries are not visualized. There is no overt adnexal mass. There is no free fluid visible within the pelvis. Assessment/Plan ICD-10-CM 1. Fibroids D21.9 2. Abnormal thyroid blood test R79.89 3. Hormone imbalance E34.9 4. Menopausal symptom N95.1 5. Night sweats R61 6. Postmenopausal HRT (hormone replacement therapy) Z79.890 7. Vaginal atrophy N95.2 8. Mood swings R45.86 9. Brain fog R41.89 10. History of abnormal mammogram Z87.898 1. Uterine Fibroids: - Assessment: a) Largest fibroid reduced from [id number] mm to 51e27e14 mm b) Overall uterine volume decreased from 155 cm to 108 cm c) Number of fibroids increased from 4 to 5, all similar in size d) Largest fibroid now plum-sized, previously small peach-sized e) Reduction likely due to decreased estrogen levels f) Previously noted polyp no longer visible g) Endometrial lining thickness decreased by half, now within normal limits h) Small polyp still visible but unchanged in size - Plan: a) Repeat ultrasound in one year to reassess fibroid size and uterine volume b) Patient to report any vaginal bleeding c) Continue monitoring thyroid issues with primary care physician d) No immediate need for hysterectomy based on current stable condition e) Observe small polyp; may require removal if patient experiences bleeding Follow up1 year Assessment & Plan documented in this encounter [facility] 11-30-2024 Miscellaneous Notes PLEASE SIGN AND SEND documented in this encounter [facility] 11-30-2024 Telephone encounter Note PLEASE SIGN AND SEND [facility] 11-20-2024 Telephone encounter Note Raz called stating she had requested a refill from the portal a couple times but the pharmacy doesn't have anything and she has not gotten a call from the office. She is asking for a refill on her alendronate (Fosamax) 35 MG to [facility] 11-20-2024 Miscellaneous Notes Raz called stating she had requested a refill from the portal a couple times but the pharmacy doesn't have anything and she has not gotten a call from the office. She is asking for a refill on her alendronate (Fosamax) 35 MG to [facility] documented in this encounter [facility] 11-12-2024 Miscellaneous Notes PLEASE SIGN AND SEND documented in this encounter [facility] 11-12-2024 Telephone encounter Note PLEASE SIGN AND SEND [facility] 11-11-2024 History of Present illness Narrative Reason for Visit: Delfina Whitmore is a 59 y.o. female who is being seen today for the follow-up of her thyroid dysfunction. History of Present Illness: Was diagnosed with thyroid dysfunction in 2019 during the evaluation of her memory problem. Taking levothyroxine and cytomel. Menopause since age 53. Symptoms at presentation: Fatigue: Yes Sleep disturbance: Yes Weight change: Yes; weight gain of 70 lbs in 2 years Temperature intolerance: Yes; heat intolerance Change in bowel habits: Yes; constipation Change in hair or skin: Yes Palpitations: Yes Shakiness: No Muscle aches or joint pain: Yes Difficulty swallowing or SOB: No Hoarse voice: No Anterior neck soreness: No Recent URI: No Family history of thyroid disease: Yes; sister with thyroid dysfunction Interim history: Taking metfrmin 1000 mg bid - tolerating it without any side effects. Tried ozempic Taking Tirosint 88 mcg and cytomel 5 mcg daily. Past Medical History: Diagnosis Date Acne Anxiety and depression Epigastric abdominal pain Functional belching disorder Gallstones Danni's disease Hyperlipidemia Hypertension Hypothyroidism Migraine Neuropathy Restless leg syndrome Rosacea Urinary incontinence Uterine fibroid UTI (urinary tract infection) Visual impairment Past Surgical History: Procedure Laterality Date BACK SURGERY x3 2020,2017,2016 COLONOSCOPY COLONOSCOPY DIAGNOSTIC / SCREENING N/A 04/11/2023 Performed by Wolf Royal MD at [facility] ENDOSCOPY CYSTOSCOPY WITH [facility] BLADDER SOLUTION N/A 04/03/2023 Performed by Wolf Iraheta MD at [facility] ESOPHAGOGASTRODUODENOSCOPY BIOPSY N/A 12/23/2023 Performed by Wolf Royal MD at [facility] ENDOSCOPY ESOPHAGOGASTRODUODENOSCOPY DILATATION 12/23/2023 Performed by Wolf Royal MD at [facility] ENDOSCOPY ESOPHAGOGASTRODUODENOSCOPY with biopsy N/A 10/23/2022 Performed by Wolf Royal MD at [facility] ENDOSCOPY LIPOMA RESECTION 2000 UTERINE FIBROID SURGERY x3 Current Outpatient Medications: benzoyl peroxide (BENZAC) 5 % gel, , Disp: , Rfl: cetirizine (ZyrTEC) 10 mg tablet, Take 2 tablets (20 mg total) by mouth in the morning and at bedtime., Disp: 120 tablet, Rfl: 5 clindamycin (CLINDAGEL) 1 % gel, , Disp: , Rfl: clindamycin-benzoyl peroxide (DUAC) gel, , Disp: , Rfl: EPINEPHrine (EPIPEN) 0.3 mg/0.3 mL auto-injector, Inject 0.3 mL (0.3 mg total) into the appropriate muscle as needed (anaphylaxis)., Disp: 2 each, Rfl: 3 ergocalciferol (DRISDOL) 1,250 mcg (50,000 unit) capsule, Take 1 capsule (50,000 Units total) by mouth once a week., Disp: 13 capsule, Rfl: 3 famotidine (PEPCID) 40 mg tablet, , Disp: , Rfl: levothyroxine sodium (TIROSINT) 88 mcg capsule, Take 1 capsule (88 mcg total) by mouth in the morning. SADAF only., Disp: 90 capsule, Rfl: 3 liothyronine (CYTOMEL) 5 MCG tablet, Take 1 tablet (5 mcg total) by mouth in the morning., Disp: 90 tablet, Rfl: 3 loratadine (CLARITIN) 10 mg tablet, Take 1 tablet (10 mg total) by mouth in the morning., Disp: , Rfl: multivitamin with minerals tablet, Take 1 tablet by mouth in the morning., Disp: , Rfl: omalizumab (XOLAIR) 150 mg/mL syringe, Inject 2 mL (300 mg total) under the skin every 28 days., Disp: 1 mL, Rfl: 11 pantoprazole (PROTONIX) 40 mg EC tablet, Take 1 tablet (40 mg total) by mouth in the morning., Disp: 90 tablet, Rfl: 3 rOPINIRole (REQUIP) 0.25 mg tablet, Take 1 tablet (0.25 mg total) by mouth nightly., Disp: , Rfl: sertraline (ZOLOFT) 25 mg tablet, Take 1 tablet (25 mg total) by mouth in the morning., Disp: , Rfl: tretinoin (RETIN-A) 0.05 % cream, Apply topically nightly., Disp: , Rfl: erythromycin (ILOTYCIN) ophthalmic ointment, APPLY 1 INCH OF OINTMENT TO LEFT EYE THREE TIMES DAILY FOR TODAY ONLY (Patient not taking: Reported on 11/11/2024), Disp: , Rfl: TAB-A-LUZMARIA 400 mcg tablet, , Disp: , Rfl: Allergies Allergen Reactions Gluten Diarrhea Other reaction(s): GI intolerance Lactobacillus Acidoph-Lactase Diarrhea Other reaction(s): GI intolerance Hydrogen Peroxide Facial Swelling Penicillins Unknown reaction per patient Family History Problem Relation Age of Onset Diabetes Mother Anesthesia problems Mother Stroke Mother Dementia Mother Stroke Father Kidney cancer Father Vitiligo Father Heart attack Father Leukemia Sister Vitiligo Sister Vitiligo Brother Hypertension Brother Colon cancer Neg Hx Social History: reports that she has never smoked. She has never used smokeless tobacco. She reports that she does not currently use alcohol. She reports that she does not use drugs. Review of Systems: 12 systems were reviewed and were negative except for what has been mentioned above. Physical Exam: Vitals: 11/11/24 0937 Weight: 99.2 kg (218 lb 12.8 oz) Height: 170.2 cm (5' 7 ) Body mass index is 34.27 kg/m . General appearance: Awake alert and oriented in no acute distress. HEENT: normocephalic, atraumatic. SKIN: no acanthosis nigricans noted on neck. HAIR: Normal facial hair growth, no hirsuitism. EYES: no exopthalmos present, extraocular movement intact (EOMI), no lid retraction noted, no chemosis. MOUTH/JAW: No lip enlargement, No widening of teeth spaces. NECK: Thyroid is normal in size . CHEST: No nasal flaring, no cough. ABDOMEN: No injection site lipodystrophy. ACROMEGALIC EXTREMITY FEATURES are not present. EXTREMITIES: no edema. NEUROLOGIC: alert and oriented. Labs: Latest Reference Range & Units 04/10/24 09:15 05/18/24 14:20 10/30/24 08:10 11/03/24 07:36 Average glucose mg/dL 123 134 Hemoglobin A1C Confirmation 4.4 - 5.6 % 5.9 (H) 6.3 (H) TSH 0.49 - 4.67 uIU/mL 3.92 2.62 2.33 2.73 Free t4 0.61 - 1.60 ng/dL 0.83 0.82 Thyroglobulin <=35.0 ng/mL 0.3 Thyroglobulin Ab <4 IU/mL 7 (H) T4, free 0.61 - 1.60 ng/dL 0.81 0.63 T3, free 2.50 - 3.90 pg/mL 3.80 3.19 Free t3 2.50 - 3.90 pg/mL 2.76 2.67 Cortisol ug/dL 12.2 Estrogen pg/mL <15.0 Progesterone ng/mL 0.5 Free Testosterone, Female or Children 0.6 - 3.8 pg/mL 1.4 Latest Reference Range & Units 07/27/22 12:02 Thyroperoxidase AB <10 IU/mL 89 (H) Assessment/Plan: Delfina Whitmore presents today for evaluation of her hashimotos hypothyroidism and preDM. 1. 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 It is more common in women but can be seen in either gender and children of different ages. When TSH is normal we suggest at least annual TSH/FT4 labs to monitor for the onset of hypothyroidism. When TSH is elevated but below 10, the patient has the option to start levothyroxine if they have positive antibodies and suggestive symptoms. If TSH is >10, we recommend treatment. Levothryoxine is the standard medication and is very safe and effective. [place] thyroid is natural, dessicated porcine thyroid and is less preferred as pigs may have higher T3:T4 ratio than humans. [id number], this might be a suitable option for some families. - levothyroxine sodium (TIROSINT) 100 mcg capsule; Take 1 capsule (100 mcg total) by mouth in the morning. SADAF only. Dispense: 90 capsule; Refill: 1 - continue cytomel 5 mcg daily - Thyroid medication instructions: -Take the thyroid medication in the morning on an empty stomach (preferred method) -Do not take the thyroid medication at the same time as iron or soy containing products - Wait 2 hours before taking other meds like iron, calcium and mvt -If you forget one pill, take later in the day; or take 2 pills the next day to make up the missed dose - TSH; Future - T4, free; Future - T3, free; Future 2. Prediabetes - Diet and exercise to prevent diabetes. Avoid high carb diet. Avoid intermittent carb snacking. Exercises 30 minutes per day. Eat more vegetables like capsicum, spinach, broccoli, radish , and proteins including nuts when hungry. Encouraged to eat Mediterranean diet. - metFORMIN XR (GLUCOPHAGE XR) 500 mg 24 hr tablet; Take 2 tablets (1,000 mg total) by mouth in the morning and 2 tablets (1,000 mg total) in the evening. Take with meals. Dispense: 360 tablet; Refill: 1 - Hemoglobin A1c; Future 3. Vitamin D deficiency - ergocalciferol (DRISDOL) 1,250 mcg (50,000 unit) capsule; Take 1 capsule (50,000 Units total) by mouth once a week. Dispense: 13 capsule; Refill: 3 - Vitamin D 25 hydroxy; Future 4. Class 1 obesity due to excess calories without serious comorbidity with body mass index (BMI) of 34.0 to 34.9 in adult - The most common side effects are nausea and vommitting. These will be minimized by starting at a low dose and titrated up. If nausea and vommitting do not resolve some people may need to stop the medication. Life threatening cases of pancreatitis have been associated with GLP-1 drugs. Should nausea vommiting associated with abdominal pain occur the drug should be stop and the prescriber contatcted immediately. This class of medication should not be used if there is a family history of medullary carcimoma of the thyroid. - tirzepatide, weight loss, (ZEPBOUND) 2.5 mg/0.5 mL pen injector; Inject 2.5 mg under the skin every 7 days. Dispense: 2 mL; Refill: 4 Return to clinic: 6 months Sara Peña MD [facility] [address] [facility] [id number] Dept: [phone] documented in this encounter [facility] 11-10-2024 History of Present illness Narrative Images from the original note were not included. Cait Antonio MD Obstetrics and Gynecology Patient: Delfina Whitmore : 1965 (59 y.o.) Yearly Wellness Exam Date: 11/10/2024 Reason for Visit - Chief Complaint Patient presents with Gynecologic Exam Patient present for yearly, patient denies any issues or complaints at this time. LMP: MANAGER WELDING Last DEXA: 12/13/23 - Osteopenia Last Mammogram:03/05/24 - Neg Last Pap: 09/25/23- Neg Colonoscopy: No history US 10/08 myoma x4 and endometrial polyp without bleeding Complaints: Annual History of Present Illness The patient presents for evaluation of hot flashes and vaginal dryness. She reports experiencing hot flashes and is seeking a prescription for a BI cream to manage this symptom. Additionally, she notes vaginal dryness but does not consider it a priority at this time. She is not sexually active. She mentions the presence of fibroids and has not experienced any postmenopausal bleeding. She has an upcoming appointment with her airline flight attendant due to abnormal thyroid function test results. GYNECOLOGICAL HISTORY: Gynecology History discussed The patient, a female with a history of menopausal symptoms, presents for follow-up regarding hormone replacement therapy and management of menopausal symptoms. She reports discontinuing the previously prescribed creams due to intolerance and is seeking alternative treatment options. The patient's primary concerns are sweats, hot flashes, and vaginal dryness, though she states that vaginal dryness is not a priority at this time. She has been experiencing these symptoms for an unspecified duration. The patient mentions that she recently had an appointment with her airline flight attendant, who noted that some of her numbers look off. She is currently using a hormone concoction prescribed by her airline flight attendant but continues to be symptomatic. The patient expresses interest in potentially switching from her current hormone therapy to a different form of hormone replacement. She indicates a preference for non-oral administration, stating, I don't want to take a pill every day. The patient also mentions considering [id number] options such as black cohosh for symptom management. In terms of overall health status, the patient reports feeling well and appears to be in good spirits, mentioning that she has a great girlfriend who is helping her psychologically. No significant changes in daily functioning or recent stressors were explicitly mentioned. Visit Vitals BP 120/74 (BP Location: Left arm) Wt 218 lb BMI 34.14 kg/m OB Status Postmenopausal Smoking Status Never BSA 2.16 m History of Present Illness, Associated Treatments and Results - OB History Para Term AB Living 0 0 0 0 0 0 SAB IAB Ectopic Multiple Live Births 0 0 0 0 0 Review of Systems - Constitutional: Negative. HENT: Negative. Eyes: Negative. Respiratory: Negative. Cardiovascular: Negative. Gastrointestinal: Negative. Endocrine: Negative. Genitourinary: Negative. Musculoskeletal: Negative. Skin: Negative. Allergic/Immunologic: Negative. Neurological: Negative. Hematological: Negative. Psychiatric/Behavioral: Negative. Allergies Allergen Reactions Penicillins Anaphylaxis Unknown reaction per patient Bacid Diarrhea and GI intolerance Other reaction(s): GI intolerance Benzoyl Peroxide Swelling Gluten Meal Diarrhea and GI intolerance Other reaction(s): GI intolerance Hydrogen Peroxide Swelling Penicillin G Current Outpatient Medications: alendronate (Fosamax) 35 MG tablet, Take 1 tablet (35 mg) by mouth every 7 (seven) days Take in the morning with a full glass of water, on an empty stomach, and do not take anything else by mouth or lie down for the next 30 min., Disp: 12 tablet, Rfl: 0 benzoyl peroxide 5 % gel, Apply 1 application topically Daily, Disp: , Rfl: BIOFLAVANOID, Take by mouth Daily, Disp: , Rfl: cetirizine (ZyrTEC) 10 MG tablet, Take by mouth, Disp: , Rfl: clindamycin (Clindagel) 1 % gel, Apply 1 application topically Daily, Disp: , Rfl: DTx Ha [employer] (GLP-1 Rubber Stamp Assembler) kit, Inject 6 mL under the skin 1 (one) time per week, Disp: , Rfl: EPINEPHrine (Epipen) 0.3 MG/0.3ML injection syringe, Inject 0.3 mg into the shoulder, thigh, or buttocks Daily as needed., Disp: , Rfl: famotidine (Pepcid) 40 MG tablet, Take 40 mg by mouth in the morning., Disp: , Rfl: lisinopril-hydroCHLOROthiazide 20-12.5 MG tablet, Take 1 tablet by mouth Daily, Disp: 90 tablet, Rfl: 1 loratadine (Claritin) 10 MG tablet, Take 10 mg by mouth Daily, Disp: , Rfl: Menaquinone-7 (VITAMIN K2 PO), Take 1 tablet by mouth Daily, Disp: , Rfl: metFORMIN (Glucophage) 1000 MG tablet, Take 1 tablet (1,000 mg) by mouth in the morning and 1 tablet (1,000 mg) in the evening. Take with meals., Disp: 180 tablet, Rfl: 0 Multiple Minerals-Vitamins (DOLOMITE PLUS VITAMINS A AND D PO), Take by mouth, Disp: , Rfl: ALLERGY NURSE Thyroid 60 MG tablet, Take 1 tablet by mouth in the morning., Disp: , Rfl: [place] 3-6-9 Fatty Acids (OMEGA DHA PO), Take by mouth Daily, Disp: , Rfl: pantoprazole (ProtoNix) 40 MG EC tablet, Take 40 mg by mouth in the morning., Disp: , Rfl: polyethylene glycol, PEG, 3350 (Glycolax) 17 GM/SCOOP powder, Take 17 g by mouth Daily, Disp: , Rfl: Rhodiola rosea (RHODIOLA PO), Take 1 tablet by mouth Daily, Disp: , Rfl: rOPINIRole (Requip) 0.25 MG tablet, Take 1 tablet (0.25 mg) by mouth at bedtime, Disp: 90 tablet, Rfl: 1 rosuvastatin (Crestor) 5 MG tablet, Take 1 tablet (5 mg) by mouth Daily, Disp: 90 tablet, Rfl: 0 selenium 200 MCG tablet, Take 200 mg by mouth Daily, Disp: , Rfl: sertraline (Zoloft) 50 MG tablet, Take 1.5 tablets (75 mg) by mouth Daily, Disp: 135 tablet, Rfl: 1 tretinoin (Retin-A) 0.1 % cream, Apply 1 application topically at bedtime, Disp: , Rfl: Xolair 150 MG/ML injection, Inject 150 mg under the skin every 30 (thirty) days, Disp: , Rfl: Past Medical History: Diagnosis Date Abnormal Pap smear of cervix 1987 Acne ADD (attention deficit disorder) without hyperactivity Allergic Anemia Ankle pain, right Anxiety and depression (CMS/HCC) Arthritis Autoimmune disease (CMS/HCC) disconnective tissue disease Calcific Achilles tendonitis Chronic idiopathic urticaria Eating disorder FH: malignant neoplasm of kidney Fibrocystic breast Fibroid, uterine Genital warts 1987 Herniation of lumbar intervertebral disc without myelopathy 04/18/2005 History of Sjogren's disease (HCC) (CMS/HCC) History of transfusion 2001 Hypertension (CMS/HCC) Hypothyroidism (CMS/HCC) Iron deficiency Keratoconjunctivitis sicca Lumbar herniated disc Memory impairment Menopause ovarian failure Night sweats Obesity Obesity (BMI 30.0-34.9) Osteopenia Pneumonia 1965 Post menopausal syndrome Pre-diabetes Restless leg syndrome Sacral pain Shingles Urinary incontinence 2022 Urinary tract infection Uterine fibroid Vaginal atrophy Visual impairment Vitamin D deficiency Past Surgical History: Procedure Laterality Date BI US GUIDED BREAST LOCALIZATION AND BIOPSY LEFT Left 06/14/2017 BI US GUIDED BREAST LOCALIZATION AND BIOPSY LEFT 06/14/2017 BREAST BIOPSY 2020 LUMBAR LAMINECTOMY MYOMECTOMY SPINE SURGERY Family History Problem Relation Name Age of Onset Diabetes Mother Luz Hypertension Mother Luz Stroke Mother Luz Depression Mother Luz Kidney cancer Father Boogie Heart failure Father Boogie Hypertension Father Boogie Stroke Father Boogie Cancer Father Boogie Heart disease Father Boogie Leukemia Sister Karissa Cancer Sister Karissa Miscarriages / Stillbirths Sister Karissa Hypertension Brother Boogie jr Hypertension Brother Daniel Colon cancer Maternal Grandmother Depression Sister Albina Social History Tobacco Use Smoking Status Never Passive exposure: Never Smokeless Tobacco Never Physical Exam - General appearance, mentation, extraocular movements, facial strength and movement, hearing, upper and lower extremity strength and tone, sensation to gross testing, coordination, and gait are normal or at baseline unless noted below. Physical Exam Constitutional: Appearance: Normal appearance. Genitourinary: Right Labia: No rash. Left Labia: No rash. Right Adnexa: no mass present. Left Adnexa: no mass present. No cervical lesion. Uterus is anteverted. Breasts: Right: Normal. No mass or nipple discharge. Left: Normal. No mass or nipple discharge. HENT: Head: Normocephalic and atraumatic. Cardiovascular: Rate and Rhythm: Normal rate and regular rhythm. Pulmonary: Breath sounds: Normal breath sounds. Abdominal: General: There is no distension. Palpations: Abdomen is soft. There is no mass. Tenderness: There is no abdominal tenderness. Musculoskeletal: General: Normal range of motion. Cervical back: Neck supple. Lymphadenopathy: Cervical: No cervical adenopathy. Neurological: Mental Status: She is alert and oriented to person, place, and time. Skin: General: Skin is warm and dry. Psychiatric: Mood and Affect: Mood normal. Behavior: Behavior normal. Vaginal atrophy Assessment/Plan ICD-10-CM 1. Encounter for gynecological examination without abnormal finding Z01.419 IGP, APT HPV,RFX 16/18,45 2. Encounter for screening mammogram for malignant neoplasm of breast Z12.31 3. 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 Encounter for screening for cervical cancer Z12.4 IGP, APT HPV,RFX 16/18,45 5. Fibroids D21.9 6. Abnormal thyroid blood test R79.89 Ambulatory referral to Endocrinology Pap and exam performed. Mammogram ordered Results can be found in MyChart in 7 days Bone health discussed Return 1 year 1. Menopausal symptoms: - Assessment:1. Hot flashes. - Continue using current cream for hot flashes. - Inform biiodentical pharmacist about persistent symptoms. - Suggest [id number] black cohosh as a potential alternative. Pt will decide about traditional HRT and Biiodenticals 2. Vaginal dryness. - Advise use of coconut oil as a moisturizer for external application. a) Patient discontinued previous hormone creams due to intolerance. b) Primary concerns are hot flashes and night sweats. c) Vaginal dryness is not a current priority. d) Patient is being managed with Biiodenticals with prescribed hormone therapy. f) Need to rule out uterine fibroids and polyps. Ultrasound ordered - Plan: a) Schedule pelvic ultrasound within 2-3 weeks to evaluate for uterine fibroids and polyps. b) Schedule follow-up consultation immediately after ultrasound for result review and treatment planning. c) Advise patient to discuss vaginal cream with airline flight attendant. d) Recommend yrdy-cww-[id number] black cohosh as a potential alternative for symptom management. e) Shellfish Weigher patient on hormone replacement therapy options: - Discuss risks including increased risk of dementia and breast cancer, particularly in women over 65 using for more than 10 years. - Explain bioidentical hormones have not been proven to cause these risks. - Offer choice between patch (changed twice weekly) or daily pill based on patient preference. f) Advise against mixing estrogen creams or tablets with current airline flight attendant-prescribed creams. g) Instruct patient to inform airline flight attendant of persistent symptoms and discuss potential medication adjustments. Assessment & Plan documented in this encounter [facility] 11-10-2024 Miscellaneous Notes Received a fax from [employer] requesting a refill for PANTOPRAZOLE Patient was last seen: 12/16/23 Please advise, Thank you. documented in this encounter [facility] 11-10-2024 Telephone encounter Note Received a fax from [employer] requesting a refill for PANTOPRAZOLE Patient was last seen: 12/16/23 Please advise, Thank you. [facility] 10-25-2024 Miscellaneous Notes PLEASE SIGN AND SEND documented in this encounter [facility] 10-25-2024 Telephone encounter Note PLEASE SIGN AND SEND [facility] 09-29-2024 History of Present illness Narrative Images from the original note were not included. Patient ID: Delfina Whitmore is a 59 y.o. female who presents for: Pt states she is still having what calls brain farts . She also has issues with word salad or trying to find the right words. She has had previous study done by [facility]. She feels like she has issues processing thoughts Objective Appearance: Well-groomed, in no acute distress Abnormal body movements: None Affect: Appropriate and appears to be expansive and somewhat tearful Attention: Good Attitude: Cooperative Degree of awareness of surroundings: Grossly within normal limits Impulse control: Appears to be good Insight: Appears to be good Fund of knowledge; adequate Judgment: Appears to be adequate Perceptual disorders: No perceptual disorders noted Psychomotor activity: Within normal range Speech: Clear, normal variability and rate Thought content: Unremarkable Visit Vitals Ht 5' 7 Wt 217 lb BMI 33.99 kg/m OB Status Postmenopausal Smoking Status Never BSA 2.16 m Allergies Allergen Reactions Penicillins Anaphylaxis Unknown reaction per patient Bacid Diarrhea and GI intolerance Other reaction(s): GI intolerance Benzoyl Peroxide Swelling Gluten Meal Diarrhea and GI intolerance Other reaction(s): GI intolerance Hydrogen Peroxide Swelling Penicillin G Current Outpatient Medications on File Prior to Visit Medication Sig Dispense Refill alendronate (Fosamax) 35 MG tablet Take 1 tablet (35 mg) by mouth every 7 (seven) days Take in the morning with a full glass of water, on an empty stomach, and do not take anything else by mouth or lie down for the next 30 min. 12 tablet 0 benzoyl peroxide 5 % gel Apply 1 application topically Daily BIOFLAVANOID Take by mouth Daily cetirizine (ZyrTEC) 10 MG tablet Take by mouth clindamycin (Clindagel) 1 % gel Apply 1 application topically Daily DTx Ha [employer] (GLP-1 Rubber Stamp Assembler) kit Inject 6 mL under the skin 1 (one) time per week EPINEPHrine (Epipen) 0.3 MG/0.3ML injection syringe Inject 0.3 mg into the shoulder, thigh, or buttocks Daily as needed. famotidine (Pepcid) 40 MG tablet Take 40 mg by mouth in the morning. lisinopril-hydroCHLOROthiazide 20-12.5 MG tablet Take 1 tablet by mouth Daily 90 tablet 1 loratadine (Claritin) 10 MG tablet Take 10 mg by mouth Daily Menaquinone-7 (VITAMIN K2 PO) Take 1 tablet by mouth Daily metFORMIN (Glucophage) 1000 MG tablet Take 1 tablet (1,000 mg) by mouth in the morning and 1 tablet (1,000 mg) in the evening. Take with meals. 180 tablet 0 Multiple Minerals-Vitamins (DOLOMITE PLUS VITAMINS A AND D PO) Take by mouth ALLERGY NURSE Thyroid 60 MG tablet Take 1 tablet by mouth in the morning. [place] 3-6-9 Fatty Acids (OMEGA DHA PO) Take by mouth Daily pantoprazole (ProtoNix) 40 MG EC tablet Take 40 mg by mouth in the morning. polyethylene glycol, PEG, 3350 (Glycolax) 17 GM/SCOOP powder Take 17 g by mouth Daily Rhodiola rosea (RHODIOLA PO) Take 1 tablet by mouth Daily rOPINIRole (Requip) 0.25 MG tablet Take 1 tablet (0.25 mg) by mouth at bedtime 90 tablet 1 rosuvastatin (Crestor) 5 MG tablet Take 1 tablet (5 mg) by mouth Daily 90 tablet 1 selenium 200 MCG tablet Take 200 mg by mouth Daily sertraline (Zoloft) 50 MG tablet Take 1.5 tablets (75 mg) by mouth Daily 135 tablet 1 tretinoin (Retin-A) 0.1 % cream Apply 1 application topically at bedtime Xolair 150 MG/ML injection Inject 150 mg under the skin every 30 (thirty) days No current facility-administered medications on file prior to visit. 1. Recurrent major depressive disorder, in partial remission (HCC) ([facility]/HCC) (Primary) Chronic problem with the patient's going through an acute exacerbation of. I suspect this is driving the cognitive issue she is complaining of. We have talked previously and she is getting into some counseling both passed oral and otherwise clinical. We had previously increased her sertraline. She really does not want any other medications. On further discussion we thought about trying 1 bottle of something called cognitive amminos and that is a supplement. We have discussed that any supplements recommended have not undergone review or approval by the FDA and, therefore, have not been documented to be safe or effective to diagnose, treat, prevent, mitigate, or cure any condition or disease. 2. Attention or concentration deficit As noted above documented in this encounter [facility] 09-10-2024 History of Present illness Narrative Images from the original note were not included. Patient ID: Delfina Whitmore is a 59 y.o. female who presents for: 3 weeks ago cough SOB. juan pablo mcnair. Was getting better and sick again. Review of Systems She is also very emotional today. Seems like stress and pressure were coming to a point. Having some insomnia from it. Objective In general the patient is pleasant and in no acute distress. Bilateral ears, canals are within normal limits. Right TM is transparent and somewhat retracted. Left TM is transparent and somewhat retracted. No fluid layer. Bilateral nares demonstrate inflamed mucosa. Oropharynx has moist mucosa there is no specific evidence of thrush. There is mild erythema of the pharynx. Shoddy bilateral anterior cervical adenopathy. No signs of respiratory distress. Patient is speaking full sentences. There are symmetrical breath sounds. No rhonchi or rales are appreciated. No wheezes. Skin is warm and dry Visit Vitals OB Status Postmenopausal Smoking Status Never Allergies Allergen Reactions Penicillins Anaphylaxis Unknown reaction per patient Bacid Diarrhea and GI intolerance Other reaction(s): GI intolerance Benzoyl Peroxide Swelling Gluten Meal Diarrhea and GI intolerance Other reaction(s): GI intolerance Hydrogen Peroxide Swelling Penicillin G Current Outpatient Medications on File Prior to Visit Medication Sig Dispense Refill alendronate (Fosamax) 35 MG tablet Take 1 tablet (35 mg) by mouth every 7 (seven) days Take in the morning with a full glass of water, on an empty stomach, and do not take anything else by mouth or lie down for the next 30 min. 12 tablet 0 benzoyl peroxide 5 % gel Apply 1 application topically Daily BIOFLAVANOID Take by mouth Daily cetirizine (ZyrTEC) 10 MG tablet Take by mouth clindamycin (Clindagel) 1 % gel Apply 1 application topically Daily DTx Ha - Wellness (GLP-1 Rubber Stamp Assembler) kit Inject 6 mL under the skin 1 (one) time per week EPINEPHrine (Epipen) 0.3 MG/0.3ML injection syringe Inject 0.3 mg into the shoulder, thigh, or buttocks Daily as needed. famotidine (Pepcid) 40 MG tablet Take 40 mg by mouth in the morning. lisinopril-hydroCHLOROthiazide 20-12.5 MG tablet Take 1 tablet by mouth Daily 90 tablet 1 loratadine (Claritin) 10 MG tablet Take 10 mg by mouth Daily Menaquinone-7 (VITAMIN K2 PO) Take 1 tablet by mouth Daily metFORMIN (Glucophage) 1000 MG tablet Take 1 tablet (1,000 mg) by mouth in the morning and 1 tablet (1,000 mg) in the evening. Take with meals. 180 tablet 0 Multiple Minerals-Vitamins (DOLOMITE PLUS VITAMINS A AND D PO) Take by mouth ALLERGY NURSE Thyroid 60 MG tablet Take 1 tablet by mouth in the morning. [place] 3-6-9 Fatty Acids (OMEGA DHA PO) Take by mouth Daily (Patient not taking: Reported on 07/14/2024) pantoprazole (ProtoNix) 40 MG EC tablet Take 40 mg by mouth in the morning. polyethylene glycol, PEG, 3350 (Glycolax) 17 GM/SCOOP powder Take 17 g by mouth Daily Rhodiola rosea (RHODIOLA PO) Take 1 tablet by mouth Daily rOPINIRole (Requip) 0.25 MG tablet Take 1 tablet (0.25 mg) by mouth at bedtime 90 tablet 1 rosuvastatin (Crestor) 5 MG tablet Take 1 tablet (5 mg) by mouth Daily 90 tablet 1 selenium 200 MCG tablet Take 200 mg by mouth Daily tretinoin (Retin-A) 0.1 % cream Apply 1 application topically at bedtime Xolair 150 MG/ML injection Inject 150 mg under the skin every 30 (thirty) days No current facility-administered medications on file prior to visit. 1. Upper respiratory tract infection, unspecified type (Primary) Acute problem that I think was adequately treated and I think she is just expecting to be too well too soon. No new medications. 2. Recurrent major depressive disorder, in partial remission (HCC) ([facility]) Chronic problem that is unstable and worsening right now. In prescribing an adjustment to their current medication, consideration of the following encompasses moderate decision making; the current prescriptions and supplements, the current allergies and medication intolerances, the current medical conditions, and potential drug interactions. Risks, benefits, and reason for adjusting their current medication were discussed. The patient was given a chance to ask questions today and all questions were answered. The patient is to contact us if any other questions arise or if any problems occur with the adjustment in their medication. - sertraline (Zoloft) 50 MG tablet; Take 1.5 tablets (75 mg) by mouth Daily Dispense: 135 tablet; Refill: 1 3. Psychological trauma Chronic problem that is exacerbated and really surface today. The patient was very emotional and shedding tears. Active listening. Permission giving. Ultimately recommended formal psychological counseling as well as past oral counseling. She is carrying much false guilt that is causing her harm. documented in this encounter [facility] 08-05-2024 Miscellaneous Notes PLEASE SIGN AND SEND documented in this encounter [facility] 08-05-2024 Telephone encounter Note PLEASE SIGN AND SEND [facility] 07-14-2024 History of Present illness Narrative Images from the original note were not included. Patient ID: Delfina Whitmore is a 59 y.o. female who presents for: Anxiety Patient is here for evaluation of anxiety. He/She has the following anxiety symptoms: none. Onset of symptoms was approximately several years ago. Symptoms have been gradually improving since that time. He/She denies current suicidal and homicidal ideation. Family history significant for no psychiatric illness.Possible organic causes contributing are: none. Previous treatment includes medication Zoloft. He/She complains of the following medication side effects: none. Review of Systems Constitutional: Negative for appetite change and fatigue. Psychiatric/Behavioral: Positive for sleep disturbance. Negative for agitation, behavioral problems and suicidal ideas. The patient is nervous/anxious. Objective Appearance: Well-groomed, in no acute distress Abnormal body movements: None Affect: Appropriate and appears to be full range Attention: Good Attitude: Cooperative Degree of awareness of surroundings: Grossly within normal limits Impulse control: Appears to be good Insight: Appears to be good Fund of knowledge; adequate Judgment: Appears to be adequate Perceptual disorders: No perceptual disorders noted Psychomotor activity: Within normal range Speech: Clear, normal variability and rate Thought content: Unremarkable Visit Vitals Ht 5' 7 Wt 217 lb BMI 33.99 kg/m OB Status Postmenopausal Smoking Status Never BSA 2.16 m Allergies Allergen Reactions Penicillins Anaphylaxis Unknown reaction per patient Bacid Diarrhea and GI intolerance Other reaction(s): GI intolerance Benzoyl Peroxide Swelling Gluten Meal Diarrhea and GI intolerance Other reaction(s): GI intolerance Hydrogen Peroxide Swelling Penicillin G Current Outpatient Medications on File Prior to Visit Medication Sig Dispense Refill alendronate (Fosamax) 35 MG tablet Take 1 tablet (35 mg) by mouth every 7 (seven) days Take in the morning with a full glass of water, on an empty stomach, and do not take anything else by mouth or lie down for the next 30 min. 12 tablet 0 benzoyl peroxide 5 % gel Apply 1 application topically Daily BIOFLAVANOID Take by mouth Daily cetirizine (ZyrTEC) 10 MG tablet Take by mouth clindamycin (Clindagel) 1 % gel Apply 1 application topically Daily DTx Medxnote (GLP-1 Rubber Stamp Assembler) kit Inject 6 mL under the skin 1 (one) time per week escitalopram (Lexapro) 20 MG tablet Take 20 mg by mouth Daily famotidine (Pepcid) 40 MG tablet Take 40 mg by mouth in the morning. lisinopril-hydroCHLOROthiazide 20-12.5 MG tablet Take 1 tablet by mouth Daily 90 tablet 1 loratadine (Claritin) 10 MG tablet Take 10 mg by mouth Daily Menaquinone-7 (VITAMIN K2 PO) Take 1 tablet by mouth Daily metFORMIN (Glucophage) 1000 MG tablet Take 1 tablet (1,000 mg) by mouth in the morning and 1 tablet (1,000 mg) in the evening. Take with meals. 60 tablet 0 Multiple Minerals-Vitamins (DOLOMITE PLUS VITAMINS A AND D PO) Take by mouth ALLERGY NURSE Thyroid 60 MG tablet Take 1 tablet by mouth in the morning. pantoprazole (ProtoNix) 40 MG EC tablet Take 40 mg by mouth in the morning. polyethylene glycol, PEG, 3350 (Glycolax) 17 GM/SCOOP powder Take 17 g by mouth Daily Rhodiola rosea (RHODIOLA PO) Take 1 tablet by mouth Daily rOPINIRole (Requip) 0.25 MG tablet Take 1 tablet (0.25 mg) by mouth at bedtime 90 tablet 1 rosuvastatin (Crestor) 5 MG tablet Take 1 tablet (5 mg) by mouth Daily 90 tablet 1 selenium 200 MCG tablet Take 200 mg by mouth Daily sertraline (Zoloft) 50 MG tablet Take 1 tablet (50 mg) by mouth Daily 90 tablet 0 tretinoin (Retin-A) 0.1 % cream Apply 1 application topically at bedtime [DISCONTINUED] cyclobenzaprine (Flexeril) 10 MG tablet Take 1 tablet (10 mg) by mouth 3 (three) times a day as needed for muscle spasms for up to 20 days 60 tablet 0 EPINEPHrine (Epipen) 0.3 MG/0.3ML injection syringe Inject 0.3 mg into the shoulder, thigh, or buttocks Daily as needed. [place] 3-6-9 Fatty Acids (OMEGA DHA PO) Take by mouth Daily (Patient not taking: Reported on 07/14/2024) Xolair 150 MG/ML injection Inject 150 mg under the skin every 30 (thirty) days [DISCONTINUED] saccharomyces boulardii (Florastor) 250 MG capsule Take 250 mg by mouth in the morning and 250 mg before bedtime. No current facility-administered medications on file prior to visit. 1. Recurrent major depressive disorder, in partial remission (HCC) (CMS/HCC) Chronic problem, stable, doing quite well. Some of this seems to be her new job which she feels drawn to in his a good fit for her. - sertraline (Zoloft) 50 MG tablet; Take 1 tablet (50 mg) by mouth Daily Dispense: 90 tablet; Refill: 1 2. Mixed anxiety and depressive disorder Chronic problem. Overall she is doing quite well this also. She is aware your at heart. The anxiety and worries are not overwhelming for her, and she is able to deal with them using previous tool she learned in counseling. 3. Non morbid obesity due to excess calories documented in this encounter [facility] 07-08-2024 History of Present illness Narrative Images from the original note were not included. [facility] HISTORY OF PRESENT ILLNESS: Delfina is a 59 y.o. female who presents for follow up regarding hives. PCP: CRAIG WANG MD TODAY Patient reports that she is no longer house sitting in [place]. 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 She is currently enjoying her job and feels very fulfilled. She notes that she does have stress which is self-driven. She reports that her urticaria is likely associated with this. She continues to have fluctuating urticaria with sometimes this being better than others. She is currently taking an antihistamine in the morning and evening, continues on Xolair q 28 days. While on this regimen she has hives mostly on her neck a few times per week. This is mostly a patchy redness without pruritus. She will occasionally itch, however nothing near what she previously experienced. These symptoms are currently very manageable. PRIOR HISTORY: Was diagnosed with chronic urticaria. Also has a h/o Hashimotos. Around 39 years of age started having itching and hives. Used to see an registered dental assistant rda in [place]. Was on hydroxyzine and fexofenadine in the past. Was started on monteleukast 3 weeks ago. Continues to have itching at night despite daily montelukast. Currently she is on Pepcid 40 mg BID, loratadine 10 mg once BID, and monteleukast 10 QD. Despite all these medications she continues to break out in hives on a daily basis. Itching has been waking her up at night from sleep. After starting cetrizine 20 mg BID, famotidine 40 mg QD, and Xolair injections 300 mg Q4 weeks. She was doing well with no breakthrough urticaria. She had abdominal discomfort and ended up being diagnosed with UTI and cholecystitis. Previously on antibiotics for that. PAST MEDICAL HISTORY: Past Medical History: Diagnosis Date Acne Anxiety and depression Epigastric abdominal pain Functional belching disorder Gallstones Danni's disease Hyperlipidemia Hypertension Hypothyroidism Migraine Neuropathy Restless leg syndrome Rosacea Urinary incontinence Uterine fibroid UTI (urinary tract infection) Visual impairment PAST SURGICAL HISTORY: Past Surgical History: Procedure Laterality Date BACK SURGERY x3 2020,2018,2016 COLONOSCOPY COLONOSCOPY DIAGNOSTIC / SCREENING N/A 04/11/2023 Performed by Wolf Royal MD at [facility] ENDOSCOPY CYSTOSCOPY WITH [facility] BLADDER SOLUTION N/A 04/03/2023 Performed by Wolf Iraheta MD at [facility] ESOPHAGOGASTRODUODENOSCOPY BIOPSY N/A 12/23/2023 Performed by Wolf Royal MD at [facility] ENDOSCOPY ESOPHAGOGASTRODUODENOSCOPY DILATATION 12/23/2023 Performed by Wolf Royal MD at [facility] ESOPHAGOGASTRODUODENOSCOPY with biopsy N/A 10/23/2022 Performed by Wolf Royal MD at [facility] LIPOMA RESECTION 2000 UTERINE FIBROID SURGERY x3 FAMILY HISTORY: Family History Problem Relation Age of Onset Diabetes Mother Anesthesia problems Mother Stroke Mother Dementia Mother Stroke Father Kidney cancer Father Vitiligo Father Heart attack Father Leukemia Sister Vitiligo Sister Vitiligo Brother Hypertension Brother Colon cancer Neg Hx SOCIAL HISTORY: Social History Socioeconomic History Marital status: Single Tobacco Use Smoking status: Never Smokeless tobacco: Never Vaping Use Vaping status: Never Used Substance and Sexual Activity Alcohol use: Not Currently Drug use: Never Sexual activity: Defer Social Drivers of Health Financial Resource Strain: High Risk (02/11/2024) Received from [facility] Overall Financial Resource Strain (CARDIA) Difficulty of Paying Living Expenses: Very hard Food Insecurity: No Food Insecurity (05/18/2024) Hunger Screening Food Insecurity - Worry: Never True Food Insecurity - Inability: Never True Transportation Needs: No Transportation Needs (02/11/2024) Received from [facility] PRAPARE - Transportation Lack of Transportation (Medical): No Lack of Transportation (Non-Medical): No Physical Activity: Insufficiently Active (02/11/2024) Received from [facility] Exercise Vital Sign Days of Exercise per Week: 3 days Minutes of Exercise per Session: 30 min Stress: Stress Concern Present (02/11/2024) Received from [facility] [employer] [place] [employer] - Occupational Stress Questionnaire Feeling of Stress : To some extent Social Connections: Moderately Isolated (02/11/2024) Received from [facility] Social Connection and Isolation Panel [NHANES] Frequency of Communication with Friends and Family: Once a week Frequency of Social Gatherings with Friends and Family: Once a week Attends Pentecostal Services: More than 4 times per year Active Member of Clubs or Organizations: Yes Attends Club or Organization Meetings: 1 to 4 times per year Marital Status: [facility] [place] Safety & Environment Housing Instability: Low Risk (02/11/2024) Received from [facility] Housing Stability Vital Sign Unable to Pay for Housing in the Last Year: No Number of Times Moved in the Last Year: 0 Homeless in the Last Year: No Environmental History: Allergy Environmental History Lives with: brother and friend Secondhand Smoke Exposure?: No Pets: no Mold/mildew: Yes Pest/ Rodents: No Housing Type: House AC: Central Air Conditioning Heating: Furnace Noah: Carpet?: Yes Noah: Hardwood?: Yes Noah: Tile?: Yes ALLERGY: Allergies Allergen Reactions Gluten Diarrhea Other reaction(s): GI intolerance Lactobacillus Acidoph-Lactase Diarrhea Other reaction(s): GI intolerance Hydrogen Peroxide Facial Swelling Penicillins Unknown reaction per patient MEDICATIONS Current Outpatient Medications Medication Sig Dispense Refill benzoyl peroxide (BENZAC) 5 % gel APPLY TOPICALLY TO FACE ONCE DAILY cetirizine (ZyrTEC) 10 mg tablet Take 2 tablets (20 mg total) by mouth in the morning and at bedtime. 120 tablet 5 clindamycin (CLINDAGEL) 1 % gel APPLY TOPICALLY TO AFFECTED AREA ON FACE ONCE DAILY clindamycin-benzoyl peroxide (DUAC) gel apply topically to affected area ON FACE once daily EPINEPHrine (EPIPEN) 0.3 mg/0.3 mL auto-injector Inject 0.3 mL (0.3 mg total) into the appropriate muscle as needed (anaphylaxis). 2 each 3 ergocalciferol (DRISDOL) 1,250 mcg (50,000 unit) capsule Take 1 capsule (50,000 Units total) by mouth once a week. 13 capsule 3 levothyroxine sodium (TIROSINT) 88 mcg capsule Take 1 capsule (88 mcg total) by mouth in the morning. SADAF only. 90 capsule 3 liothyronine (CYTOMEL) 5 MCG tablet Take 1 tablet (5 mcg total) by mouth in the morning. 90 tablet 3 loratadine (CLARITIN) 10 mg tablet Take 1 tablet (10 mg total) by mouth in the morning. metFORMIN (GLUCOPHAGE) 500 mg tablet 2 tabs in the evening and 1 tab in the morning (Patient taking differently: 2 tablets (1,000 mg total). 2 tabs in the evening and 1 tab in the morning) 270 tablet 1 multivitamin with minerals tablet Take 1 tablet by mouth in the morning. omalizumab (XOLAIR) 150 mg/mL syringe Inject 2 mL (300 mg total) under the skin every 28 days. 1 mL 11 pantoprazole (PROTONIX) 40 mg EC tablet Take 1 tablet (40 mg total) by mouth in the morning. 90 tablet 3 rOPINIRole (REQUIP) 0.25 mg tablet Take 1 tablet (0.25 mg total) by mouth nightly. tretinoin (RETIN-A) 0.05 % cream Apply topically nightly. erythromycin (ILOTYCIN) ophthalmic ointment APPLY 1 INCH OF OINTMENT TO LEFT EYE THREE TIMES DAILY FOR TODAY ONLY (Patient not taking: Reported on 02/17/2024) famotidine (PEPCID) 40 mg tablet take 1 tablet by mouth every morning (Patient not taking: Reported on 07/08/2024) sertraline (ZOLOFT) 25 mg tablet Take 1 tablet (25 mg total) by mouth in the morning. (Patient not taking: Reported on 05/18/2024) TAB-A-LUZMARIA 400 mcg tablet take 1 tablet by mouth once daily (Patient not taking: Reported on 07/08/2024) No current facility-administered medications for this visit. ROS: A comprehensive 10+ review of systems was negative except for symptoms noted in HPI. Additional positives include: None. Physical Exam General appearance: well-nourished, well-hydrated, in NAD Head: No scalp scaling, no scalp rash, no alopecia Neck: No cervical LAD, full neck ROM Eyes: Pupils symmetric, EOMMI, no conjunctival injection, no infraorbital darkening, no periorbital edema or rash ENT: Right TM- clear, +light reflex, no effusions, not bulging Left TM- clear, +light reflex, no effusions, not bulging Nose: External nose symmetric, 1+ nasal turbinates, normal nasal mucosa, no rhinorrhea, no polyps Mouth: No oropharyngeal lesions, MMM CV: RRR, no murmur, 2+ peripheral pulses, cap refill <2s Respiratory: Comfortable WOB, normal RR, no stertor, no stridor, CTAB with good aeration throughout all lung cortez Abdomen: soft, non-distended Skin: No rash, hives, angioedema, or excoriations Neurologic: No focal deficit, normal gait Labs, imaging, and records: I have personally obtained and reviewed the labs/imaging below, with interpretation as follows: Results for orders placed or performed during the hospital encounter of 05/18/24 Vitamin D 25 hydroxy Collection Time: 05/18/24 2:20 PM Result Value Ref Range Vit D, 25-Hydroxy 46.0 30 - 100 ng/mL T3, free Collection Time: 05/18/24 2:20 PM Result Value Ref Range T3, free 3.19 2.50 - 3.90 pg/mL T4, free Collection Time: 05/18/24 2:20 PM Result Value Ref Range T4, free 0.63 0.61 - 1.60 ng/dL TSH Collection Time: 05/18/24 2:20 PM Result Value Ref Range TSH 2.62 0.49 - 4.67 uIU/mL Assessment/ Plan: Delfina was seen today for follow-up. Diagnoses and all orders for this visit: 1. Chronic idiopathic urticaria 2. Food allergy Chronic Idiopathic Urticaria: - Urticaria continues to be stable after decreasing antihistamine dose last visit. - Due to drowsiness from cetirizine, switched AM antihistamine to loratadine. Fexofenadine was ineffective in the past. - Patient continues to get minimal hives a few times a week while on current regimen (4th week right before her next Xolair). Discussed how trough levels of Xolair can cause worsening of symptoms. She will call if the week prior to Xolair has significantly worsening symptoms to decrease interval. - Current Regimen: - Loratidine 10 mg in the morning - Cetirizine 10 mg in the evening - Continue Xolair 300 mg Q4 weeks. Has been tolerating it well without any adverse events. - Patient advised on monitoring for and avoidance of possible exacerbating factors. - Patient is very concerned that some foods might trigger her urticaria. After shared decision making, we ordered serum IgE testing for: wheat, milk, egg. Milk and wheat came back positive. Patient has been avoiding them. Has an UTD Epipen. She knows how and when to use it. - Follow up in 6 months or sooner as needed. Scribe Statement: Scribed for and in the presence of AKHIL SMALLWOOD MD by Rajwinder Mireles 07/08/24 1611 I, AKHIL SMALLWOOD MD, personally performed the services described in the documentation, as scribed in my presence, and confirm that the documentation is both accurate and complete. Attestation: Akhil Smallwood MD [facility] Total time spent was 30 minutes: preparing to see the patient (e.g., review of tests), obtaining and/or reviewing history, examination, counseling and educating the patient/family/caregive, orders and documenting clinical information in the electronic or other health record. [facility] Instructions Rajwinder Mireles - 07/08/2024 4:00 PM EST Chronic Idiopathic Urticaria: - Urticaria continues to be stable after decreasing antihistamine dose last visit. - Due to drowsiness from cetirizine, switched AM antihistamine to loratadine. Fexofenadine was ineffective in the past. - Patient continues to get minimal hives a few times a week while on current regimen (4th week right before her next Xolair). Discussed how trough levels of Xolair can cause worsening of symptoms. She will call if the week prior to Xolair has significantly worsening symptoms to decrease interval. - Current Regimen: - Loratidine 10 mg in the morning - Cetirizine 10 mg in the evening - Continue Xolair 300 mg Q4 weeks. Has been tolerating it well without any adverse events. - Patient advised on monitoring for and avoidance of possible exacerbating factors. - Patient is very concerned that some foods might trigger her urticaria. After shared decision making, we ordered serum IgE testing for: wheat, milk, egg. Milk and wheat came back positive. Patient has been avoiding them. Has an UTD Epipen. She knows how and when to use it. - Follow up in 6 months or sooner as needed. [facility] Miscellaneous Notes Patient calling in office with new insurance, new prescription benefit requesting new prescription over [facility] pharmacy ID: [id number] Claim # [id number] documented in this encounter [facility] 06-11-2024 Telephone encounter Note Patient calling in office with new insurance, new prescription benefit requesting new prescription over [facility] pharmacy ID: [id number] Claim # [id number] [facility] 05-22-2024 Miscellaneous Notes Xolair submitted to patient's new insurance today. documented in this encounter [facility] 05-22-2024 Telephone encounter Note Xolair submitted to patient's new insurance today. [facility] 05-18-2024 Miscellaneous Notes Please sign and resend to corrected pharmacy, thank you! documented in this encounter [facility] 05-18-2024 Telephone encounter Note Please sign and resend to corrected pharmacy, thank you! [facility] 05-18-2024 History of Present illness Narrative Reason for Visit: Delfina Whitmore is a 59 y.o. female who is being seen today for the follow-up of her thyroid dysfunction. History of Present Illness: Was diagnosed with thyroid dysfunction in 2019 during the evaluation of her memory problem. Taking levothyroxine and cytomel. Menopause since age 53. Symptoms at presentation: Fatigue: Yes Sleep disturbance: Yes Weight change: Yes; weight gain of 70 lbs in 2 years Temperature intolerance: Yes; heat intolerance Change in bowel habits: Yes; constipation Change in hair or skin: Yes Palpitations: Yes Shakiness: No Muscle aches or joint pain: Yes Difficulty swallowing or SOB: No Hoarse voice: No Anterior neck soreness: No Recent URI: No Family history of thyroid disease: Yes; sister with thyroid dysfunction Interim history: Taking metfrmin 1000 mg bid - tolerating it without any side effects. Taking ALLERGY NURSE thyroid 60 mg daily - still has brain fog, fatigue Past Medical History: Diagnosis Date Acne Anxiety and depression Epigastric abdominal pain Functional belching disorder Gallstones Danni's disease Hyperlipidemia Hypertension Hypothyroidism Migraine Neuropathy Restless leg syndrome Rosacea Urinary incontinence Uterine fibroid UTI (urinary tract infection) Visual impairment Past Surgical History: Procedure Laterality Date BACK SURGERY x3 2020,2017,2015 COLONOSCOPY COLONOSCOPY DIAGNOSTIC / SCREENING N/A 04/11/2023 Performed by Wolf Royal MD at [facility] ENDOSCOPY CYSTOSCOPY WITH [facility] SOLUTION N/A 04/03/2023 Performed by Wolf Iraheta MD at [facility] ESOPHAGOGASTRODUODENOSCOPY BIOPSY N/A 12/23/2023 Performed by oWlf Royal MD at [facility] ESOPHAGOGASTRODUODENOSCOPY DILATATION 12/23/2023 Performed by Wolf Royal MD at [facility] ESOPHAGOGASTRODUODENOSCOPY with biopsy N/A 10/23/2022 Performed by Wolf Royal MD at [facility] LIPOMA RESECTION 2000 UTERINE FIBROID SURGERY x3 Current Outpatient Medications: alendronate (FOSAMAX) 35 mg tablet, Take 1 tablet (35 mg total) by mouth Once a week., Disp: , Rfl: benzoyl peroxide (BENZAC) 5 % gel, APPLY TOPICALLY TO FACE ONCE DAILY, Disp: , Rfl: cetirizine (ZyrTEC) 10 mg tablet, Take 2 tablets (20 mg total) by mouth in the morning and at bedtime., Disp: 120 tablet, Rfl: 5 cholecalciferol, vitamin D3, 5,000 units tablet, Take 1 tablet (5,000 Units total) by mouth in the morning., Disp: , Rfl: clindamycin (CLINDAGEL) 1 % gel, APPLY TOPICALLY TO AFFECTED AREA ON FACE ONCE DAILY, Disp: , Rfl: clindamycin-benzoyl peroxide (DUAC) gel, apply topically to affected area ON FACE once daily, Disp: , Rfl: EPINEPHrine (EPIPEN) 0.3 mg/0.3 mL auto-injector, Inject 0.3 mL (0.3 mg total) into the appropriate muscle as needed (anaphylaxis)., Disp: 2 each, Rfl: 3 loratadine (CLARITIN) 10 mg tablet, Take 1 tablet (10 mg total) by mouth in the morning., Disp: , Rfl: metFORMIN (GLUCOPHAGE) 500 mg tablet, 2 tabs in the evening and 1 tab in the morning (Patient taking differently: 2 tablets (1,000 mg total). 2 tabs in the evening and 1 tab in the morning), Disp: 270 tablet, Rfl: 1 multivitamin with minerals tablet, Take 1 tablet by mouth in the morning., Disp: , Rfl: ALLERGY NURSE THYROID 60 mg tablet, Take 1 tablet (60 mg total) by mouth in the morning., Disp: 90 tablet, Rfl: 3 omalizumab (XOLAIR) 150 mg/mL syringe, Inject 2 mL (300 mg total) under the skin every 28 days., Disp: 2 mL, Rfl: 11 pantoprazole (PROTONIX) 40 mg EC tablet, Take 1 tablet (40 mg total) by mouth in the morning., Disp: 90 tablet, Rfl: 3 rOPINIRole (REQUIP) 0.25 mg tablet, Take 1 tablet (0.25 mg total) by mouth nightly., Disp: , Rfl: TAB-A-LUZMARIA 400 mcg tablet, take 1 tablet by mouth once daily, Disp: , Rfl: tretinoin (RETIN-A) 0.05 % cream, Apply topically nightly., Disp: , Rfl: erythromycin (ILOTYCIN) ophthalmic ointment, APPLY 1 INCH OF OINTMENT TO LEFT EYE THREE TIMES DAILY FOR TODAY ONLY (Patient not taking: Reported on 05/18/2024), Disp: , Rfl: famotidine (PEPCID) 40 mg tablet, take 1 tablet by mouth every morning (Patient not taking: Reported on 05/18/2024), Disp: , Rfl: sertraline (ZOLOFT) 25 mg tablet, Take 1 tablet (25 mg total) by mouth in the morning. (Patient not taking: Reported on 05/18/2024), Disp: , Rfl: Allergies Allergen Reactions Gluten Diarrhea Other reaction(s): GI intolerance Lactobacillus Acidoph-Lactase Diarrhea Other reaction(s): GI intolerance Hydrogen Peroxide Facial Swelling Penicillins Unknown reaction per patient Family History Problem Relation Age of Onset Diabetes Mother Anesthesia problems Mother Stroke Mother Dementia Mother Stroke Father Kidney cancer Father Vitiligo Father Heart attack Father Leukemia Sister Vitiligo Sister Vitiligo Brother Hypertension Brother Colon cancer Neg Hx Social History: reports that she has never smoked. She has never used smokeless tobacco. She reports that she does not currently use alcohol. She reports that she does not use drugs. Review of Systems: 12 systems were reviewed and were negative except for what has been mentioned above. Physical Exam: Vitals: 05/18/24 1333 BP: 125/84 Pulse: 76 Weight: 99.7 kg (219 lb 14.4 oz) General appearance: Awake alert and oriented in no acute distress. HEENT: normocephalic, atraumatic. SKIN: no acanthosis nigricans noted on neck. HAIR: Normal facial hair growth, no hirsuitism. EYES: no exopthalmos present, extraocular movement intact (EOMI), no lid retraction noted, no chemosis. MOUTH/JAW: No lip enlargement, No widening of teeth spaces. NECK: Thyroid is normal in size . CHEST: No nasal flaring, no cough. ABDOMEN: No injection site lipodystrophy. ACROMEGALIC EXTREMITY FEATURES are not present. EXTREMITIES: no edema. NEUROLOGIC: alert and oriented. Labs: Latest Reference Range & Units 10/01/23 16:00 11/22/23 11:46 12/03/23 09:24 Hemoglobin A1C Confirmation 4.4 - 5.6 % 5.9 (H) TSH 0.49 - 4.67 uIU/mL 0.07 (L) 1.31 T4, free 0.61 - 1.60 ng/dL 1.08 0.62 T3, free 2.50 - 3.90 pg/mL 2.83 Latest Reference Range & Units 07/27/22 12:02 Thyroperoxidase AB <10 IU/mL 89 (H) Assessment/Plan: Delfina Whitmore presents today for evaluation of her hashimotos hypothyroidism and preDM. 1. 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 It is more common in women but can be seen in either gender and children of different ages. When TSH is normal we suggest at least annual TSH/FT4 labs to monitor for the onset of hypothyroidism. When TSH is elevated but below 10, the patient has the option to start levothyroxine if they have positive antibodies and suggestive symptoms. If TSH is >10, we recommend treatment. Levothryoxine is the standard medication and is very safe and effective. [place] thyroid is natural, dessicated porcine thyroid and is less preferred as pigs may have higher T3:T4 ratio than humans. [id number], this might be a suitable option for some families. - tirosint 88 mcg daily - TSH; Standing - T4, free; Standing - T3, free; Standing 2. Prediabetes - Diet and exercise to prevent diabetes. Avoid high carb diet. Avoid intermittent carb snacking. Exercises 30 minutes per day. Eat more vegetables like capsicum, spinach, broccoli, radish , and proteins including nuts when hungry. Encouraged to eat Mediterranean diet. - Metformin 500 mg 2 tabs bid - Hemoglobin A1c; Standing Return to clinic: 4 months Sara Peña MD [facility] [address] [id number] Dept: [phone] documented in this encounter [facility] 05-12-2024 History of Present illness Narrative Images from the original note were not included. Patient ID: Delfina Whitmore is a 59 y.o. female who presents for: Refill: Pt needs a refill of her alendronate that she takes for her bone health. Hypertension Patient is here for follow-up of elevated blood pressure. She is not exercising and is not adherent to a low-salt diet. Blood pressure is well controlled at home. Cardiac symptoms: none. Patient denies chest pain, fatigue, and irregular heart beat. Cardiovascular risk factors: dyslipidemia, hypertension, and obesity (BMI >= 30 kg/m2). Use of agents associated with hypertension: none. History of target organ damage: none. Hyperlipidemia Pt who presents for follow-up of dyslipidemia. A repeat fasting lipid profile was done. The patient does not use medications that may worsen dyslipidemias (corticosteroids, progestins, anabolic steroids, diuretics, beta-blockers, amiodarone, cyclosporine, olanzapine). Exercise: rarely. Restless leg syndrome: The patient presents for follow-up of restless leg syndrome, which was diagnosed years ago. The patient's last follow-up 6 months with previous provider. The patient complains of excessive daytime sleepiness, occurring daily. The patient complains of leg sensation(s), beginning years ago, daily, wakes during night Other symptoms includeanxiety , drowsiness , extreme fatigue , joint pain , poor concentration. Medication(s) include Response to medication(s), has been good/not effective Review of Systems Constitutional: Negative for activity change and fatigue. Respiratory: Negative for cough, shortness of breath and wheezing. Cardiovascular: Negative for chest pain, palpitations and leg swelling. Neurological: Negative for light-headedness and headaches. Objective The patient is pleasant and in no acute distress. The neck is supple and trachea is midline. No masses are appreciated. The heart is regular rate and rhythm without S3, S4. No murmur. The patient has normal respiratory pattern. The breath sounds are symmetrical without evidence of rhonchi or rales. No wheezing. The skin is warm and dry. The lower extremities have trace edema. The patient has good eye contact and speech is clear. Appropriate affect. Visit Vitals BP 128/72 Pulse 72 Ht 5' 7 Wt 217 lb SpO2 97% BMI 33.99 kg/m OB Status Postmenopausal Smoking Status Never BSA 2.16 m Allergies Allergen Reactions Penicillins Anaphylaxis Unknown reaction per patient Bacid Diarrhea and GI intolerance Other reaction(s): GI intolerance Benzoyl Peroxide Swelling Gluten Meal Diarrhea and GI intolerance Other reaction(s): GI intolerance Hydrogen Peroxide Swelling Penicillin G Current Outpatient Medications on File Prior to Visit Medication Sig Dispense Refill alendronate (Fosamax) 35 MG tablet Take 1 tablet (35 mg) by mouth every 7 (seven) days Take in the morning with a full glass of water, on an empty stomach, and do not take anything else by mouth or lie down for the next 30 min. 12 tablet 0 benzoyl peroxide 5 % gel Apply 1 application topically Daily BIOFLAVANOID Take by mouth Daily cetirizine (ZyrTEC) 10 MG tablet Take by mouth cholecalciferol (Vitamin D-3) 125 MCG (5000 UT) tablet Take 1 tablet (125 mcg) by mouth Daily 90 tablet 0 clindamycin (Clindagel) 1 % gel Apply 1 application topically Daily EPINEPHrine (Epipen) 0.3 MG/0.3ML injection syringe Inject 0.3 mg into the shoulder, thigh, or buttocks Daily as needed. escitalopram (Lexapro) 20 MG tablet Take 20 mg by mouth Daily famotidine (Pepcid) 40 MG tablet Take 40 mg by mouth in the morning. loratadine (Claritin) 10 MG tablet Take 10 mg by mouth Daily Menaquinone-7 (VITAMIN K2 PO) Take 1 tablet by mouth Daily metFORMIN (Glucophage) 1000 MG tablet Take 1 tablet (1,000 mg) by mouth in the morning and 1 tablet (1,000 mg) in the evening. Take with meals. 60 tablet 0 Multiple Minerals-Vitamins (DOLOMITE PLUS VITAMINS A AND D PO) Take by mouth Multiple Vitamins-Iron (Tab-A-Luzmaria/Iron) tablet Take 1 tablet by mouth Daily 90 tablet 0 ALLERGY NURSE Thyroid 60 MG tablet Take 1 tablet by mouth in the morning. [place] 3-6-9 Fatty Acids (OMEGA DHA PO) Take by mouth Daily pantoprazole (ProtoNix) 40 MG EC tablet Take 40 mg by mouth in the morning. polyethylene glycol, PEG, 3350 (Glycolax) 17 GM/SCOOP powder Take 17 g by mouth Daily Rhodiola rosea (RHODIOLA PO) Take 1 tablet by mouth Daily saccharomyces boulardii (Florastor) 250 MG capsule Take 250 mg by mouth in the morning and 250 mg before bedtime. selenium 200 MCG tablet Take 200 mg by mouth Daily sertraline (Zoloft) 50 MG tablet Take 50 mg by mouth Daily tretinoin (Retin-A) 0.1 % cream Apply 1 application topically at bedtime Xolair 150 MG/ML injection Inject 150 mg under the skin every 14 (fourteen) days No current facility-administered medications on file prior to visit. 1. Essential hypertension, benign (CMS/HCC) Chronic problem, stable, to goal. - lisinopril-hydroCHLOROthiazide 20-12.5 MG tablet; Take 1 tablet by mouth Daily Dispense: 90 tablet; Refill: 1 2. Metabolic syndrome In prescribing a renewal to their current medication, consideration of the following encompasses moderate decision making; the current prescriptions and supplements, the current allergies and medication intolerances, current medical conditions, and potential drug interactions. Any changes to risks, benefits, and reason for renewing their current medication due to the above were discussed. The patient was given a chance to ask questions today and all questions were answered. The patient is to contact us if any other questions arise or if any problems occur. (Utilizing the original guidelines or the 2020 office/outpatient code guidelines for selecting the level of E/M service, In both sets of guidelines, prescription drug management appears in the moderate medical decision making (MDM) row. Neither the original guidelines nor the new guidelines state that a new prescription or change is needed in order to credit prescription drug management) - rosuvastatin (Crestor) 5 MG tablet; Take 1 tablet (5 mg) by mouth Daily Dispense: 90 tablet; Refill: 1 3. Prediabetes Chronic problem, stable, encouraged continued lifestyle changes. 4. Non morbid obesity due to excess calories Chronic problem and again reinforced lifestyle changes. 5. Osteopenia of multiple sites 6. Restless legs syndrome Chronic problem, stable as long she utilizes a ropinirole. - rOPINIRole (Requip) 0.25 MG tablet; Take 1 tablet (0.25 mg) by mouth at bedtime Dispense: 90 tablet; Refill: 1 7. Lumbar back pain with radiculopathy affecting right lower extremity Chronic problem with the an exacerbation. Discussed several different options and she has been dealing with this on and off but does not have any treatment. She does have a home exercise program and I reinforced doing this regularly. In prescribing a new medication consideration of the following encompasses moderate decision making: the current prescriptions and supplements, the current allergies and medication intolerances, the current medical conditions, and potential drug interactions. Risks, benefits, and reason for starting their medication were discussed. The patient was given a chance to ask questions today and all questions were answered. The patient is to contact us if any other questions arise or if any problems occur with the adjustment in their medication. - cyclobenzaprine (Flexeril) 10 MG tablet; Take 1 tablet (10 mg) by mouth 3 (three) times a day as needed for muscle spasms for up to 20 days Dispense: 60 tablet; Refill: 0 - nabumetone (Relafen) 750 MG tablet; Take 1 tablet (750 mg) by mouth in the morning and 1 tablet (750 mg) before bedtime. Dispense: 60 tablet; Refill: 0 documented in this encounter [facility] 04-09-2024 History of Present illness Narrative Images from the original note were not included. Patient ID: Delfina Whitmore is a 59 y.o. female who presents for: See Scanned Wellness packet Advance Directive/Living Will: No Health Care Power of Junior Copywriter: No Review of Systems Constitutional: Negative for appetite change, chills, fever and unexpected weight change. Respiratory: Negative for cough, shortness of breath and wheezing. Cardiovascular: Negative for chest pain, palpitations and leg swelling. Gastrointestinal: Negative for abdominal pain, constipation and diarrhea. Genitourinary: Negative for frequency and urgency. Neurological: Positive for headaches. Negative for light-headedness. Psychiatric/Behavioral: Negative for behavioral problems and sleep disturbance. The patient is nervous/anxious. Objective The patient is pleasant and in no acute distress. The head is normocephalic and atraumatic. Both eyes appear grossly normal without obvious lid pathology or icterus. Both ears hearing is grossly intact. The neck is supple and trachea is midline. No masses are appreciated. The anterior cervical lymphatics demonstrates shoddy bilateral nontender lymphadenopathy. There is no supraclavicular lymphadenopathy. The heart is regular rate and rhythm without S3, S4. No murmur. The patient has normal respiratory pattern. The breath sounds are symmetrical without evidence of rhonchi or rales. No wheezing. The skin is warm and dry. The lower extremities have trace edema. Neurologic screening exam is nonfocal. The patient is alert. There is no overt gross evidence of cognitive impairment The patient has good eye contact and speech is clear. Appropriate affect. Visit Vitals BP 124/70 Pulse 81 Ht 5' 7 Wt 217 lb SpO2 98% BMI 33.99 kg/m OB Status Postmenopausal Smoking Status Never BSA 2.16 m Allergies Allergen Reactions Penicillins Anaphylaxis Unknown reaction per patient Benzoyl Peroxide Swelling Gluten Meal Diarrhea and GI intolerance Other reaction(s): GI intolerance Hydrogen Peroxide Swelling Lactase-Lactobacillus Diarrhea and GI intolerance Other reaction(s): GI intolerance Penicillin G Current Outpatient Medications on File Prior to Visit Medication Sig Dispense Refill alendronate (Fosamax) 35 MG tablet Take 1 tablet (35 mg) by mouth every 7 (seven) days Take in the morning with a full glass of water, on an empty stomach, and do not take anything else by mouth or lie down for the next 30 min. 12 tablet 0 benzoyl peroxide 5 % gel Apply 1 application topically Daily BIOFLAVANOID Take by mouth Daily cholecalciferol (Vitamin D-3) 125 MCG (5000 UT) tablet Take 1 tablet (125 mcg) by mouth Daily 90 tablet 0 clindamycin (Clindagel) 1 % gel Apply 1 application topically Daily cyclobenzaprine (Flexeril) 10 MG tablet Take 1 tablet (10 mg) by mouth 3 (three) times a day as needed for muscle spasms for up to 20 days 60 tablet 0 EPINEPHrine (Epipen) 0.3 MG/0.3ML injection syringe Inject 0.3 mg into the shoulder, thigh, or buttocks Daily as needed. famotidine (Pepcid) 40 MG tablet Take 40 mg by mouth in the morning. lisinopril-hydroCHLOROthiazide 20-12.5 MG tablet Take 1 tablet by mouth Daily 90 tablet 0 loratadine (Claritin) 10 MG tablet Take 10 mg by mouth Daily Menaquinone-7 (VITAMIN K2 PO) Take 1 tablet by mouth Daily Multiple Vitamins-Iron (Tab-A-Luzmaria/Iron) tablet Take 1 tablet by mouth Daily 90 tablet 0 ALLERGY NURSE Thyroid 60 MG tablet Take 1 tablet by mouth in the morning. [place] 3-6-9 Fatty Acids (OMEGA DHA PO) Take by mouth Daily pantoprazole (ProtoNix) 40 MG EC tablet Take 40 mg by mouth in the morning. polyethylene glycol, PEG, 3350 (Glycolax) 17 GM/SCOOP powder Take 17 g by mouth Daily Rhodiola rosea (RHODIOLA PO) Take 1 tablet by mouth Daily rOPINIRole (Requip) 0.25 MG tablet Take 1 tablet (0.25 mg) by mouth at bedtime 90 tablet 0 rosuvastatin (Crestor) 5 MG tablet Take 1 tablet (5 mg) by mouth Daily 90 tablet 0 selenium 200 MCG tablet Take 200 mg by mouth Daily sertraline (Zoloft) 50 MG tablet Take 50 mg by mouth Daily tretinoin (Retin-A) 0.1 % cream Apply 1 application topically at bedtime Xolair 150 MG/ML injection Inject 150 mg under the skin every 14 (fourteen) days cetirizine (ZyrTEC) 10 MG tablet Take by mouth doxycycline (Periostat) 20 MG tablet Take 20 mg by mouth in the morning and 20 mg before bedtime. Take with a full glass of water and do not lie down for at least 30 minutes after.. escitalopram (Lexapro) 20 MG tablet Take 20 mg by mouth Daily ferrous sulfate 325 (65 Fe) MG EC tablet Take 325 mg by mouth in the morning and 325 mg at noon and 325 mg in the evening. Take with meals. Do not crush, chew, or split.. levothyroxine (Synthroid, Levoxyl) 100 MCG tablet Take by mouth Daily before meals liothyronine (Cytomel) 5 MCG tablet Take by mouth Daily Multiple Minerals-Vitamins (DOLOMITE PLUS VITAMINS A AND D PO) Take by mouth saccharomyces boulardii (Florastor) 250 MG capsule Take 250 mg by mouth in the morning and 250 mg before bedtime. No current facility-administered medications on file prior to visit. 1. Encounter for wellness examination in adult (Primary) I have reviewed the patients PMShx, medications, and reconciled the problem list. Health maintenance and risk was reviewed and discussed. I also reviewed and discussed as appropriate; immunizations, colon cancer screening, breast and cervical cancer screening, recommended and any current lab evaluation. All items were brought up to date unless declined by the patient. - Comprehensive metabolic panel; Future - Lipid panel; Future - Comprehensive metabolic panel - Lipid panel 2. Advance directive discussed with patient Patient voluntarily agreed to discuss advance care planning at today's wellness visit. We discussed that an advance directive is a legal document that only goes into effect if the patient is incapacitated and unable to speak for themselves. This would help us to decide what care the patient would want. We discussed emergency treatments to keep the patient alive such as CPR, ventilator use and concept of comfort. We discussed how patients could make their wishes known through a living will, durable power of civil rights attorney for healthcare, or other advanced directives. We discussed telling stone people about their advance and a copy will be kept in the EHR. I discussed that they should also make me an emergency contact in their cell phone, and/or notify their POA that I have a copy of the advanced directives. 3. Non morbid obesity due to excess calories Discussed improve lifestyle changes that would also help with her prediabetes. 4. Prediabetes She got a little side tracked for a couple of reasons and needs new titrating prescriptions. She understands to contact me if she is tolerating the 1000 mg dose and we will then order a 90 day supply with a hemoglobin A1c in 2 months. - metFORMIN (Glucophage) 850 MG tablet; Take 1 tablet (850 mg) by mouth in the morning and 1 tablet (850 mg) in the evening. Take before meals. Dispense: 60 tablet; Refill: 0 - metFORMIN (Glucophage) 1000 MG tablet; Take 1 tablet (1,000 mg) by mouth in the morning and 1 tablet (1,000 mg) in the evening. Take with meals. Dispense: 60 tablet; Refill: 0 - Comprehensive metabolic panel; Future - Comprehensive metabolic panel 5. Screening, lipid - Lipid panel; Future - Lipid panel 6. Screening for diabetes mellitus - Comprehensive metabolic panel; Future - Comprehensive metabolic panel documented in this encounter [facility] 04-01-2024 Miscellaneous Notes Xolair PA renewal submitted to insurance today. documented in this encounter [facility] 04-01-2024 Telephone encounter Note Xolair PA renewal submitted to insurance today. [facility] 03-20-2024 Miscellaneous Notes PLEASE SIGN AND SEND documented in this encounter [facility] 03-20-2024 Telephone encounter Note PLEASE SIGN AND SEND [facility] 03-17-2024 Miscellaneous Notes Pharmacy wants [facility] Script for ALLERGY NURSE thyroid. Please sign and resend documented in this encounter [facility] 03-17-2024 Telephone encounter Note Pharmacy wants [facility] Script for ALLERGY NURSE thyroid. Please sign and resend [facility] 03-17-2024 Miscellaneous Notes Ok to sign and send documented in this encounter [facility] 03-17-2024 Telephone encounter Note Ok to sign and send [facility] 02-18-2024 History of Present illness Narrative Patient ID: Delfina Whitmore is a 58 y.o. female who presents for: Patient who presents for evaluation of low back pain. The patient has had recurrent self limited episodes of low back pain in the past. Symptoms have been present for 3 days and are gradually worsening. Onset was related to / precipitated by no known injury. The pain is located in the left lumbar area or radiating to left leg(s) and radiates to the left foot. The pain is described as aching, stabbing, and tingling and occurs all day. She rates her pain as a 2-10 on a scale of 0-10. Symptoms are exacerbated by coughing, flexion, twisting, and walking for more than a few minutes. Symptoms are improved by ice and NSAIDs. He/She has also tried chiropractic manipulation and stretching which provided no symptom relief. He/She has no other symptoms associated with the back pain. Review of Systems Constitutional: Negative for activity change and fatigue. Respiratory: Negative for cough, shortness of breath and wheezing. Cardiovascular: Negative for chest pain, palpitations and leg swelling. Musculoskeletal: Positive for back pain and gait problem. Neurological: Positive for headaches. Negative for light-headedness. Objective The patient is pleasant and in no acute distress The head is normocephalic and atraumatic The patient does not appear to have a gross neurologic deficit. The patient has good eye contact and clear speech She has a normal gait. She has a mild standing hip slight discrepancy with the right maybe a half an inch greater than the. She has 2 well-healed lumbar scars. There is no increasing calor or rubor. She has some [id number] lumbar paraspinal hypertonicity with some tenderness to the right side. The left SI joint is tender to palpation in the right is normal. She has mild diffuse decreased range of motion with some discomfort at the extremes. Right sciatic notches nontender the left however causes burning pain that rest starts to wrapped down around her leg. Muscle testing is notably normal in all groups in her leg. There is some decreased strength but still in the normal range of her hip flexor and her dorsiflexor. Patellar deep tendon reflexes are brisk Achilles deep tendon reflexes are present the right is slightly less than the left. Sitting straight leg raising is negative. Sensation is grossly intact in her legs. Visit Vitals BP 124/72 Pulse 68 Ht 5' 7 Wt 213 lb SpO2 97% BMI 33.36 kg/m OB Status Postmenopausal Smoking Status Never BSA 2.14 m Allergies Allergen Reactions Penicillins Anaphylaxis Unknown reaction per patient Benzoyl Peroxide Swelling Gluten Meal Diarrhea and GI intolerance Other reaction(s): GI intolerance Hydrogen Peroxide Swelling Lactase-Lactobacillus Diarrhea and GI intolerance Other reaction(s): GI intolerance Penicillin G Current Outpatient Medications on File Prior to Visit Medication Sig Dispense Refill alendronate (Fosamax) 35 MG tablet Take 1 tablet (35 mg) by mouth every 7 (seven) days Take in the morning with a full glass of water, on an empty stomach, and do not take anything else by mouth or lie down for the next 30 min. 12 tablet 1 benzoyl peroxide 5 % gel Apply 1 application topically Daily BIOFLAVANOID Take by mouth Daily clindamycin (Clindagel) 1 % gel Apply 1 application topically Daily EPINEPHrine (Epipen) 0.3 MG/0.3ML injection syringe Inject 0.3 mg into the shoulder, thigh, or buttocks Daily as needed. famotidine (Pepcid) 40 MG tablet Take 40 mg by mouth in the morning. lisinopril-hydroCHLOROthiazide 20-12.5 MG tablet Take 1 tablet by mouth Daily 90 tablet 1 loratadine (Claritin) 10 MG tablet Take 10 mg by mouth Daily Menaquinone-7 (VITAMIN K2 PO) Take 1 tablet by mouth Daily metFORMIN (Glucophage) 500 MG tablet take 1 tablet by mouth every morning and evening with meals 60 tablet 2 Multiple Vitamins-Iron (Tab-A-Luzmaria/Iron) tablet Take 1 tablet by mouth in the morning. ALLERGY NURSE Thyroid 60 MG tablet Take 1 tablet by mouth in the morning. [place] 3-6-9 Fatty Acids (OMEGA DHA PO) Take by mouth Daily pantoprazole (ProtoNix) 40 MG EC tablet Take 40 mg by mouth in the morning. polyethylene glycol, PEG, 3350 (Glycolax) 17 GM/SCOOP powder Take 17 g by mouth Daily Rhodiola rosea (RHODIOLA PO) Take 1 tablet by mouth Daily rOPINIRole (Requip) 0.25 MG tablet TAKE 1 TABLET BY MOUTH EVERY DAY NIGHTLY 90 tablet 0 rosuvastatin (Crestor) 5 MG tablet Take 1 tablet (5 mg) by mouth Daily 90 tablet 0 selenium 200 MCG tablet Take 200 mg by mouth Daily sertraline (Zoloft) 50 MG tablet Take 50 mg by mouth Daily tretinoin (Retin-A) 0.1 % cream Apply 1 application topically at bedtime Xolair 150 MG/ML injection Inject 150 mg under the skin every 14 (fourteen) days No current facility-administered medications on file prior to visit. 1. Lumbar back pain with radiculopathy affecting right lower extremity Chronic problem that has not acute exacerbation. I did spend quite a lot of time reviewing old records and cleaning up her problem list which had lots of duplications and errors. Most of this cleaned up we related directly to her pain and spine. Her goal is to avoid further surgery. I did discuss with her from what I can see sooner or later she will probably end up with some sort of surgery with all the problems. Family in trying to help her avoid this and keep that can down the road as long as we can keep her functional. She has no signs of urgent neurologic compromise. We have mutually agreed to trial of treatment to get things calmed down for her. She wanted to know about using her chiropractor who has helped her. I asked her to get at least a full day of medication on board before she went for chiropractic. I do not think that is unreasonable. We discussed how this this persists she might need a course of physical therapy also. In prescribing a new medication consideration of the following encompasses moderate decision making: the current prescriptions and supplements, the current allergies and medication intolerances, the current medical conditions, and potential drug interactions. Risks, benefits, and reason for starting their medication were discussed. The patient was given a chance to ask questions today and all questions were answered. The patient is to contact us if any other questions arise or if any problems occur with the adjustment in their medication. - predniSONE (Deltasone) 10 MG tablet; Every 2 day tapering dose; 5,5,4,4,3,3,2,2,1,1,0.5,0.5 Dispense: 31 tablet; Refill: 0 - nabumetone (Relafen) 750 MG tablet; Take 1 tablet (750 mg) by mouth in the morning and 1 tablet (750 mg) before bedtime. Dispense: 60 tablet; Refill: 0 - cyclobenzaprine (Flexeril) 10 MG tablet; Take 1 tablet (10 mg) by mouth 3 (three) times a day as needed for muscle spasms for up to 20 days Dispense: 60 tablet; Refill: 0 2. S/P lumbar microdiscectomy She has had 2 previous lumbar surgeries. 3. Lumbar paraspinal muscle spasm Part of her acute exacerbation. She did specifically note that she thinks she has used Flexeril previously without significant problems. 4. Lumbar facet arthropathy Chronic problem that will continue to need to be managed. She does have a home exercise program that she notes she is doing every day. 5. Spinal stenosis of lumbar region without neurogenic claudication Chronic problem that appears her previous surgeries may have resolved but now she has a adjacent level disease causing central canal stenosis on both sides of her previous surgical sites. 6. Lumbar foraminal stenosis This is moderate to severe at multiple levels. 7. Lumbar disc herniation Unfortunately this is a central disc herniation located at 1 of her previous surgical sites. 8. History of prediabetes She had this and all her other medical problems that she wanted me to look at as a new patient. I discussed with her that this is way too much for 1 office visit and that we had already spent an extensive amount of time which actually turned into an hour just trying to sort through this. She was not immediately out of other medications. She also has other doctors involved in her management. I have asked her to reschedule an we will get her in next week to review all this and get this lined up. Computer his timed me at 61 minutes in the chart the day of service. Unfortunately due to a meeting I could not quite get the chart finished and I spent another 8 minutes finishing it up the following morning. documented in this encounter [facility] 02-17-2024 History of Present illness Narrative Images from the original note were not included. Subjective: Patient ID: Delfina Whitmore is a 58 y.o. female. Chief Complaint Patient presents with Hip Pain Patient has left hip pain. No known injury. 58-year-old female patient presents to urgent care with complaints of a 2 day history of left lower back pain/kidney pain. Patient states that it got worse yesterday when she was driving she felt a sharp pain that radiated down to her left hip. She states that she does have history of a herniated disc as well as 3 surgeries in her lumbar L4-L5 area. She states that she has been seen by different surgeons but her most recent spinal surgeon is within [facility]. Patient denies any bowel or bladder incontinence. She states that it has been harder for her to urinate, however. Denies any history of frequent urinary tract infections or any history of kidney stones but states that kidney stones and kidney cancer run in her family. She denies chest pains or shortness of breath. She denies further complaints at this time. Back Pain This is a new problem. The current episode started in the past 7 days. The problem occurs constantly. The problem is unchanged. The pain is present in the lumbar spine. The quality of the pain is described as aching. Radiates to: left hip. The pain is at a severity of 5/10. The pain is moderate. The pain is The same all the time. The symptoms are aggravated by position. Stiffness is present All day. Pertinent negatives include no abdominal pain, bladder incontinence, bowel incontinence, chest pain, dysuria, fever, headaches, leg pain, numbness, paresis, paresthesias, pelvic pain, perianal numbness, tingling, weakness or weight loss. She has tried ice, NSAIDs, home exercises, heat, bed rest and walking for the symptoms. The treatment provided mild relief. The following portions of the patient's history were reviewed and updated as appropriate: allergies, current medications, past family history, past medical history, past social history, past surgical history and problem list. Review of Systems Constitutional: Negative for chills, diaphoresis, fever and weight loss. HENT: Negative for congestion. Respiratory: Negative for apnea, chest tightness and shortness of breath. Cardiovascular: Negative for chest pain. Gastrointestinal: Negative for abdominal pain and bowel incontinence. Genitourinary: Positive for decreased urine volume. Negative for bladder incontinence, dysuria and pelvic pain. Musculoskeletal: Positive for back pain. Neurological: Negative for tingling, weakness, numbness, headaches and paresthesias. Past Medical History: Diagnosis Date Acne Anxiety and depression Epigastric abdominal pain Functional belching disorder Gallstones Danni's disease Hyperlipidemia Hypertension Hypothyroidism Migraine Neuropathy Restless leg syndrome Rosacea Urinary incontinence Uterine fibroid UTI (urinary tract infection) Visual impairment Past Surgical History: Procedure Laterality Date BACK SURGERY x3 2020,2017,2016 COLONOSCOPY COLONOSCOPY DIAGNOSTIC / SCREENING N/A 04/11/2023 Performed by Wolf Royal MD at [facility] ENDOSCOPY CYSTOSCOPY WITH [facility] BLADDER SOLUTION N/A 04/03/2023 Performed by Wolf Iraheta MD at [facility] ESOPHAGOGASTRODUODENOSCOPY BIOPSY N/A 12/23/2023 Performed by Wolf Royal MD at [facility] ENDOSCOPY ESOPHAGOGASTRODUODENOSCOPY DILATATION 12/23/2023 Performed by Wolf Royal MD at [facility] ENDOSCOPY ESOPHAGOGASTRODUODENOSCOPY with biopsy N/A 10/23/2022 Performed by Wolf Royal MD at [facility] ENDOSCOPY LIPOMA RESECTION 2000 UTERINE FIBROID SURGERY x3 Social History Tobacco Use Smoking status: Never Smokeless tobacco: Never Vaping Use Vaping status: Never Used Substance Use Topics Alcohol use: Not Currently Drug use: Never Family History Problem Relation Age of Onset Diabetes Mother Anesthesia problems Mother Stroke Mother Dementia Mother Stroke Father Kidney cancer Father Vitiligo Father Heart attack Father Leukemia Sister Vitiligo Sister Vitiligo Brother Hypertension Brother Colon cancer Neg Hx Allergies Allergen Reactions Gluten Diarrhea Other reaction(s): GI intolerance Lactobacillus Acidoph-Lactase Diarrhea Other reaction(s): GI intolerance Hydrogen Peroxide Facial Swelling Penicillins Unknown reaction per patient Current Outpatient Medications on File Prior to Visit Medication Sig Dispense Refill alendronate (FOSAMAX) 35 mg tablet Take 1 tablet (35 mg total) by mouth Once a week. benzoyl peroxide (BENZAC) 5 % gel APPLY TOPICALLY TO FACE ONCE DAILY cetirizine (ZyrTEC) 10 mg tablet Take 2 tablets (20 mg total) by mouth in the morning and at bedtime. 120 tablet 5 cholecalciferol, vitamin D3, 5,000 units tablet Take 1 tablet (5,000 Units total) by mouth in the morning. clindamycin (CLINDAGEL) 1 % gel APPLY TOPICALLY TO AFFECTED AREA ON FACE ONCE DAILY clindamycin-benzoyl peroxide (DUAC) gel apply topically to affected area ON FACE once daily EPINEPHrine (EPIPEN) 0.3 mg/0.3 mL auto-injector Inject 0.3 mL (0.3 mg total) into the appropriate muscle as needed (anaphylaxis). 2 each 3 famotidine (PEPCID) 40 mg tablet take 1 tablet by mouth every morning lisinopril-hydroCHLOROthiazide (PRINZIDE,ZESTORETIC) 20-12.5 mg per tablet Take 1 tablet by mouth in the morning. loratadine (CLARITIN) 10 mg tablet Take 1 tablet (10 mg total) by mouth in the morning. metFORMIN (GLUCOPHAGE) 500 mg tablet 2 tabs in the evening and 1 tab in the morning 270 tablet 1 multivitamin with minerals tablet Take 1 tablet by mouth in the morning. omalizumab (XOLAIR) 150 mg/mL syringe Inject 2 mL (300 mg total) under the skin every 28 days. 2 mL 11 pantoprazole (PROTONIX) 40 mg EC tablet Take 1 tablet (40 mg total) by mouth in the morning. 90 tablet 3 polyethylene glycol (GLYCOLAX) 17 gram/dose powder Take 17 g by mouth in the morning for 360 days. 510 g 11 rOPINIRole (REQUIP) 0.25 mg tablet Take 1 tablet (0.25 mg total) by mouth nightly. TAB-A-LUZMARIA 400 mcg tablet take 1 tablet by mouth once daily thyroid, pork, (ALLERGY NURSE THYROID) 60 mg tablet take 1 tablet by mouth every morning 90 tablet 1 tretinoin (RETIN-A) 0.05 % cream Apply topically nightly. erythromycin (ILOTYCIN) ophthalmic ointment APPLY 1 INCH OF OINTMENT TO LEFT EYE THREE TIMES DAILY FOR TODAY ONLY (Patient not taking: Reported on 02/17/2024) sertraline (ZOLOFT) 25 mg tablet Take 1 tablet (25 mg total) by mouth in the morning. (Patient not taking: Reported on 12/16/2023) No current facility-administered medications on file prior to visit. Objective: Vitals: 02/17/24 0923 BP: 126/67 Pulse: 82 Resp: 16 Temp: 36.8 C (98.2 F) TempSrc: Temporal SpO2: 100% Weight: 96.2 kg (212 lb) Height: 170.2 cm (5' 7 ) No LMP recorded. Patient is postmenopausal. The patient was not asked if she was . Body mass index is 33.2 kg/m . Facility age limit for growth %key is 20 years. Physical Exam Vitals and nursing note reviewed. Constitutional: Appearance: Normal appearance. HENT: Head: Normocephalic. Mouth/Throat: Mouth: Mucous membranes are moist. Eyes: Extraocular Movements: Extraocular movements intact. Cardiovascular: Rate and Rhythm: Normal rate and regular rhythm. Pulses: Normal pulses. Pulmonary: Effort: Pulmonary effort is normal. Musculoskeletal: General: Normal range of motion. Cervical back: Normal range of motion. Lumbar back: Spasms and tenderness present. Back: Skin: General: Skin is warm and dry. Capillary Refill: Capillary refill takes less than 2 seconds. Neurological: General: No focal deficit present. Mental Status: She is alert and oriented to person, place, and time. Psychiatric: Mood and Affect: Mood normal. Behavior: Behavior normal. Differential Diagnosis: Differentials from this visit include: Urinary tract infection, pyelonephritis, kidney stone, herniated disc, degenerative disc disease Assessment/Plan: Lumbar x-ray shows no acute osseous abnormality but degenerative changes as described. Pelvic calcifications noted most likely uterine fibroids. Her urinalysis is negative for acute urinary tract infections but does show some blood. Potential for kidney stone, but patient will need further evaluation with ultrasound or perhaps CT and lab work. She does have an appointment scheduled with her primary care provider tomorrow and I believe it would be a good idea to have these tests ordered outpatient. If pain worsens, patient is encouraged to present to ER for this further workup, otherwise follow-up with primary care provider as discussed. Use Tylenol, Motrin and plenty of rest and rehydration. Urine will be cultured and patient will be called in 24-48 hours if antibiotics are necessary. X-ray spine lumbar 2 or 3 views Result Date: 02/17/2024 Narrative: LUMBAR SPINE 3 VIEWS COMPARISON: 06/09/2008 HISTORY: Low back pain radiating to left lower extremity, history of L4-5 surgery. Findings: Transitional lumbosacral anatomy. 4 nonrib-bearing lumbar type vertebral bodies. For the purposes of this exam, inferior most lumbar type vertebral body will be considered L4. There is severe disc space narrowing with endplate degenerative change with sclerosis at what is labeled L3-4. Multilevel facet hypertrophy most prominent involving the mid to lower lumbar spine. Disc space narrowing L4-5 also noted. No evidence for an acute fracture or subluxation. Aortic calcifications. Left pelvic calcifications, most likely uterine fibroids. IMPRESSION: No acute osseous abnormality. Degenerative changes as described. Note that there is transitional lumbosacral anatomy. Finalized by Edmar Valdez MD on 02/17/2024 9:57 AM Follow up care is usually required after a visit to the Urgent care. It is your responsibility to call for a follow up appointment. Your diagnosis today is a provisional one based on information available to the Urgent care provider. The diagnosis may change as more information becomes available to your private physician. If you develop any new, worsening, or concerning symptoms of illness, and are unable to follow up with a private physician, please return here or to the nearest Emergency Department for further care immediately. Labs for this visit: Office Visit on 02/17/2024 Component Date Value External Poct Urine Color 02/17/2024 Yellow External Poct Urine Lamar* 02/17/2024 Clear External Poct Urine Appe* 02/17/2024 Normal External Poct Urine Gluc* 02/17/2024 Negative External Poct Urine Bili* 02/17/2024 Negative External Poct Urine Keto* 02/17/2024 Negative External Poct Urine Spec* 02/17/2024 1.025 External Poct Urine Blood 02/17/2024 Trace External Poct Urine Ph 02/17/2024 6.0 External Poct Urine Prot* 02/17/2024 Negative External Poct Urine Urob* 02/17/2024 0.2 External Poct Urine Nitr* 02/17/2024 Negative External Poct Urine Leuk* 02/17/2024 Negative External Poct Urine Hemo* 02/17/2024 Negative External Poct Urine Wbc 02/17/2024 Negative Delfina was seen today for hip pain. Diagnoses and all orders for this visit: Low back pain radiating to left lower extremity - POCT Urinalysis Auto, W/O Microscopy - X-ray spine lumbar 2 or 3 views; Future Orders Placed or Reconciled This Encounter Medications erythromycin (ILOTYCIN) ophthalmic ointment Sig: APPLY 1 INCH OF OINTMENT TO LEFT EYE THREE TIMES DAILY FOR TODAY ONLY loratadine (CLARITIN) 10 mg tablet Sig: Take 1 tablet (10 mg total) by mouth in the morning. There are no Patient Instructions on file for this visit. This note is dictated with the use of M*Modal.Please note that this dictation was completed with computer voice recognition software. Quite often unanticipated grammatical, syntax, homophones, and other interpretive errors are inadvertently transcribed by the computer software. Please disregard these errors. Please excuse any errors that have escaped final proofreading. I personally discussed test results with patient/parent. Education handout and discharge papers given. Paperwork explained. Denies questions or concerns. Discussed that follow up care is usually required after a visit to the Urgent care. It is your responsibility to contact your primary care provider for follow up. If symptoms are not improving, worsening, or concerning symptoms of illness develop, follow up with your primary care provider or go to the nearest Emergency Department for further care immediately. CAMERON Bellamy 02/17/24 1016 documented in this encounter [facility] 12-16-2023 Miscellaneous Notes After OV with CRISTOPHER scheduled EGD for 12/22 at 1030am BRITTANY. Instructions given and explained in office documented in this encounter [facility] 12-16-2023 Telephone encounter Note After OV with MB scheduled EGD for 12/22 at 1030am BRITTANY. Instructions given and explained in office [facility] 12-16-2023 History of Present illness Narrative [facility] Follow Up Visit CHIEF COMPLAINT: Chief Complaint Patient presents with GI Problem Pt reports she feels like food is getting stuck, and has some burning in throat. Pt states has to burp herself. Pt states has to eat food to relieve the feeling. Pt states she has some nausea. HISTORY OF PRESENT ILLNESS: Delfina Whitmore is a 58 y.o. female who has a past medical history of Acne, Anxiety and depression, Epigastric abdominal pain, Functional belching disorder, Gallstones, Danni's disease, Hyperlipidemia, Hypertension, Hypothyroidism, Migraine, Neuropathy, Restless leg syndrome, Rosacea, Urinary incontinence, Uterine fibroid, UTI (urinary tract infection), and Visual impairment. who presents today for a return visit to discuss some new symptoms of food feeling like it gets stuck in the mid chest as well as some mucus. Not getting chelsea heartburn. Already on famotidine. Had spoken to another physician and was given a script for Protonix but had not started it yet. Also had concerns about history of intestinal metaplasia of the stomach.. REVIEW OF SYSTEMS: See HPI, otherwise ROS as below CONSTITUTIONAL: negative GASTROINTESTINAL: As in HPI ALLERGIES: Gluten, Lactobacillus acidoph-lactase, Hydrogen peroxide, and Penicillins Current Medications: Current Outpatient Medications: alendronate (FOSAMAX) 35 mg tablet, Take 1 tablet (35 mg total) by mouth Once a week., Disp: , Rfl: benzoyl peroxide (BENZAC) 5 % gel, APPLY TOPICALLY TO FACE ONCE DAILY, Disp: , Rfl: cetirizine (ZyrTEC) 10 mg tablet, Take 2 tablets (20 mg total) by mouth in the morning and at bedtime., Disp: 120 tablet, Rfl: 5 cholecalciferol, vitamin D3, 5,000 units tablet, Take 1 tablet (5,000 Units total) by mouth in the morning., Disp: , Rfl: clindamycin (CLINDAGEL) 1 % gel, APPLY TOPICALLY TO AFFECTED AREA ON FACE ONCE DAILY, Disp: , Rfl: clindamycin-benzoyl peroxide (DUAC) gel, apply topically to affected area ON FACE once daily, Disp: , Rfl: EPINEPHrine (EPIPEN) 0.3 mg/0.3 mL auto-injector, Inject 0.3 mL (0.3 mg total) into the appropriate muscle as needed (anaphylaxis)., Disp: 2 each, Rfl: 3 famotidine (PEPCID) 40 mg tablet, take 1 tablet by mouth every morning, Disp: , Rfl: Lactobacillus acidophilus (PROBIOTIC ORAL), Take by mouth., Disp: , Rfl: levothyroxine (SYNTHROID, LEVOTHROID) 75 MCG tablet, Take 1 tablet (75 mcg total) by mouth., Disp: , Rfl: lisinopril-hydroCHLOROthiazide (PRINZIDE,ZESTORETIC) 20-12.5 mg per tablet, Take 1 tablet by mouth in the morning., Disp: , Rfl: metFORMIN (GLUCOPHAGE) 500 mg tablet, 2 tabs in the evening and 1 tab in the morning, Disp: 270 tablet, Rfl: 1 multivitamin with minerals tablet, Take 1 tablet by mouth in the morning., Disp: , Rfl: omalizumab (XOLAIR) 150 mg/mL syringe, Inject 2 mL (300 mg total) under the skin every 28 days., Disp: 2 mL, Rfl: 11 pantoprazole (PROTONIX) 40 mg EC tablet, TAKE 1 TABLET BY MOUTH ONCE DAILY, Disp: , Rfl: polyethylene glycol (GLYCOLAX) 17 gram/dose powder, Take 17 g by mouth in the morning for 360 days., Disp: 510 g, Rfl: 11 rOPINIRole (REQUIP) 0.25 mg tablet, Take 1 tablet (0.25 mg total) by mouth nightly., Disp: , Rfl: rosuvastatin (CRESTOR) 5 mg tablet, Take 1 tablet (5 mg total) by mouth in the morning., Disp: , Rfl: TAB-A-LUZMARIA 400 mcg tablet, take 1 tablet by mouth once daily, Disp: , Rfl: tretinoin (RETIN-A) 0.05 % cream, Apply topically nightly., Disp: , Rfl: escitalopram (LEXAPRO) 20 mg tablet, Take 5 tablets (100 mg total) by mouth in the morning. (Patient not taking: Reported on 12/04/2023), Disp: , Rfl: ferrous sulfate (IRON ORAL), Take 65 mg by mouth in the morning. (Patient not taking: Reported on 12/04/2023), Disp: , Rfl: PREMPRO 0.45-1.5 mg per tablet, take 1 tablet by mouth every morning, Disp: , Rfl: sertraline (ZOLOFT) 25 mg tablet, Take 1 tablet (25 mg total) by mouth in the morning. (Patient not taking: Reported on 12/16/2023), Disp: , Rfl: thyroid, pork, (ARMOUR THYROID) 60 mg tablet, Take 1 tablet (60 mg total) by mouth in the morning. (Patient not taking: Reported on 12/16/2023), Disp: 30 tablet, Rfl: 3 I reviewed and reconciled this patient's medication list today. The list included in this note is the most up to date list that I can attest to at this time based on the information that the patient has provided me and the electronic medical record. PAST MEDICAL, SOCIAL AND FAMILY HISTORY: Past Medical History: Past Medical History: Diagnosis Date Acne Anxiety and depression Epigastric abdominal pain Functional belching disorder Gallstones Danni's disease Hyperlipidemia Hypertension Hypothyroidism Migraine Neuropathy Restless leg syndrome Rosacea Urinary incontinence Uterine fibroid UTI (urinary tract infection) Visual impairment Past Surgical History: Past Surgical History: Procedure Laterality Date BACK SURGERY x3 2020,2018,2016 COLONOSCOPY COLONOSCOPY DIAGNOSTIC / SCREENING N/A 04/11/2023 Performed by Wolf Royal MD at [facility] ENDOSCOPY CYSTOSCOPY WITH [facility] BLADDER SOLUTION N/A 04/03/2023 Performed by Wolf Iraheta MD at [facility] ESOPHAGOGASTRODUODENOSCOPY with biopsy N/A 10/23/2022 Performed by Wolf Royal MD at [facility] ENDOSCOPY LIPOMA RESECTION 2000 UTERINE FIBROID SURGERY x3 SOCIAL HISTORY: Social History Tobacco Use Smoking status: Never Smokeless tobacco: Never Vaping Use Vaping status: Never Used Substance Use Topics Alcohol use: Not Currently Drug use: Never PHYSICAL EXAM: BP 114/71 Pulse 67 Ht 170.2 cm (5' 7 ) Wt 99.1 kg (218 lb 6.4 oz) BMI 34.21 kg/m Body mass index is 34.21 kg/m . GEN: alert and oriented x3, NAD DATA: CBC: Lab Results Component Value Date WBC 7.4 08/19/2023 HGB 13.4 08/19/2023 HCT 40.4 08/19/2023 MCV 88 08/19/2023 RDW 12.8 08/19/2023 PLT 292 08/19/2023 CMP: Lab Results Component Value Date K 4.5 04/23/2023 CL 107 04/23/2023 CO2 24 04/23/2023 BUN 15 04/23/2023 GLU 83 04/23/2023 FOLATE: Lab Results Component Value Date FOLATE >25.0 09/28/2022 HgBA1c: Lab Results Component Value Date HGBA1C 5.9 (H) 11/22/2023 Iron Studies: Lab Results Component Value Date TIBC 339 11/29/2022 FERRITIN 90 11/29/2022 PT/INR: No results found for: INR TSH: Lab Results Component Value Date TSH 1.31 12/03/2023 VITAMIN B12: No components found for: B12 25 Hydroxy Vitamin D Level: No components found for: VITDTOTAL DIAGNOSTIC STUDIES REVIEWED: As noted in the HPI ASSESSMENT AND PLAN: Delfina Whitmore is a 58 y.o. female who has a past medical history of Acne, Anxiety and depression, Epigastric abdominal pain, Functional belching disorder, Gallstones, Danni's disease, Hyperlipidemia, Hypertension, Hypothyroidism, Migraine, Neuropathy, Restless leg syndrome, Rosacea, Urinary incontinence, Uterine fibroid, UTI (urinary tract infection), and Visual impairment. who presents today for a return visit to discuss dysphagia with a possible history of intestinal metaplasia of the stomach and a history of urticaria. Will plan EGD with biopsy of the esophagus and stomach. She will start on the Protonix. ASA 2 mac. 1. Esophageal dysphagia Orders Placed This Encounter Procedures EGD WOLF ROYAL MD [facility] [place] [address] PH: [phone] documented in this encounter [facility] 12-04-2023 History of Present illness Narrative Reason for Visit: Delfina Whitmore is a 58 y.o. female who is being seen today in consultation at the request of SHAIKH ALINE MD for her thyroid dysfunction. History of Present Illness: Was diagnosed with thyroid dysfunction in 2019 during the evaluation of her memory problem. Taking levothyroxine and cytomel. Menopause since age 53. Current Symptoms: Fatigue: Yes Sleep disturbance: Yes Weight change: Yes; weight gain of 70 lbs in 2 years Temperature intolerance: Yes; heat intolerance Change in bowel habits: Yes; constipation Change in hair or skin: Yes Palpitations: Yes Shakiness: No Muscle aches or joint pain: Yes Difficulty swallowing or SOB: No Hoarse voice: No Anterior neck soreness: No Recent URI: No Family history of thyroid disease: Yes; sister with thyroid dysfunction Past Medical History: Diagnosis Date Acne Anxiety and depression Epigastric abdominal pain Functional belching disorder Gallstones Danni's disease Hyperlipidemia Hypertension Hypothyroidism Migraine Neuropathy Restless leg syndrome Rosacea Urinary incontinence Uterine fibroid UTI (urinary tract infection) Visual impairment Past Surgical History: Procedure Laterality Date BACK SURGERY x3 2020,2017,2015 COLONOSCOPY COLONOSCOPY DIAGNOSTIC / SCREENING N/A 04/11/2023 Performed by Wolf Royal MD at [facility] ENDOSCOPY CYSTOSCOPY WITH [facility] BLADDER SOLUTION N/A 04/03/2023 Performed by Wolf Iraheta MD at [facility] ESOPHAGOGASTRODUODENOSCOPY with biopsy N/A 10/23/2022 Performed by Wolf Royal MD at [facility] ENDOSCOPY LIPOMA RESECTION 2000 UTERINE FIBROID SURGERY x3 Current Outpatient Medications: cetirizine (ZyrTEC) 10 mg tablet, Take 2 tablets (20 mg total) by mouth in the morning and at bedtime., Disp: 120 tablet, Rfl: 5 cholecalciferol, vitamin D3, 5,000 units tablet, Take 1 tablet (5,000 Units total) by mouth in the morning., Disp: , Rfl: EPINEPHrine (EPIPEN) 0.3 mg/0.3 mL auto-injector, Inject 0.3 mL (0.3 mg total) into the appropriate muscle as needed (anaphylaxis)., Disp: 2 each, Rfl: 3 Lactobacillus acidophilus (PROBIOTIC ORAL), Take by mouth., Disp: , Rfl: levothyroxine (SYNTHROID, LEVOTHROID) 75 MCG tablet, Take 100 mcg by mouth in the morning., Disp: , Rfl: liothyronine (CYTOMEL) 5 MCG tablet, Take 1 tablet (5 mcg total) by mouth in the morning., Disp: , Rfl: lisinopril-hydroCHLOROthiazide (PRINZIDE,ZESTORETIC) 20-12.5 mg per tablet, Take 1 tablet by mouth in the morning., Disp: , Rfl: metFORMIN (GLUCOPHAGE) 500 mg tablet, take 1 tablet by mouth every morning and evening with meals, Disp: , Rfl: multivitamin with minerals tablet, Take 1 tablet by mouth in the morning., Disp: , Rfl: omalizumab (XOLAIR) 150 mg/mL syringe, Inject 2 mL (300 mg total) under the skin every 28 days., Disp: 2 mL, Rfl: 11 polyethylene glycol (GLYCOLAX) 17 gram/dose powder, Take 17 g by mouth in the morning for 360 days., Disp: 510 g, Rfl: 11 rOPINIRole (REQUIP) 0.25 mg tablet, Take 1 tablet (0.25 mg total) by mouth nightly., Disp: , Rfl: rosuvastatin (CRESTOR) 5 mg tablet, Take 1 tablet (5 mg total) by mouth in the morning., Disp: , Rfl: sertraline (ZOLOFT) 25 mg tablet, Take 1 tablet (25 mg total) by mouth in the morning., Disp: , Rfl: tretinoin (RETIN-A) 0.05 % cream, Apply topically nightly., Disp: , Rfl: amitriptyline (ELAVIL) 10 mg tablet, One capsule at 8 PM each night (Patient not taking: Reported on 06/27/2023), Disp: 30 tablet, Rfl: 5 cetirizine (ZyrTEC) 10 mg tablet, Take 1 tablet (10 mg total) by mouth in the morning., Disp: 90 tablet, Rfl: 4 doxycycline (VIBRAMYCIN) 50 mg capsule, , Disp: , Rfl: escitalopram (LEXAPRO) 20 mg tablet, Take 5 tablets (100 mg total) by mouth in the morning. (Patient not taking: Reported on 12/04/2023), Disp: , Rfl: ferrous sulfate (IRON ORAL), Take 65 mg by mouth in the morning. (Patient not taking: Reported on 12/04/2023), Disp: , Rfl: PREMPRO 0.45-1.5 mg per tablet, take 1 tablet by mouth every morning, Disp: , Rfl: Allergies Allergen Reactions Gluten Diarrhea Other reaction(s): GI intolerance Lactobacillus Acidoph-Lactase Diarrhea Other reaction(s): GI intolerance Hydrogen Peroxide Facial Swelling Penicillins Unknown reaction per patient Family History Problem Relation Age of Onset Diabetes Mother Anesthesia problems Mother Stroke Mother Dementia Mother Stroke Father Kidney cancer Father Vitiligo Father Heart attack Father Leukemia Sister Vitiligo Sister Vitiligo Brother Hypertension Brother Colon cancer Neg Hx Social History: reports that she has never smoked. She has never used smokeless tobacco. She reports that she does not currently use alcohol. She reports that she does not use drugs. Review of Systems: 12 systems were reviewed and were negative except for what has been mentioned above. Physical Exam: Vitals: 12/04/23 1207 BP: 111/72 Pulse: 72 Weight: 98.9 kg (218 lb 1.6 oz) General appearance: Awake alert and oriented in no acute distress. HEENT: normocephalic, atraumatic. SKIN: no acanthosis nigricans noted on neck. HAIR: Normal facial hair growth, no hirsuitism. EYES: no exopthalmos present, extraocular movement intact (EOMI), no lid retraction noted, no chemosis. MOUTH/JAW: No lip enlargement, No widening of teeth spaces. NECK: Thyroid is normal in size . CHEST: No nasal flaring, no cough. ABDOMEN: No injection site lipodystrophy. ACROMEGALIC EXTREMITY FEATURES are not present. EXTREMITIES: no edema. NEUROLOGIC: alert and oriented. Labs: Latest Reference Range & Units 10/01/23 16:00 11/22/23 11:46 12/03/23 09:24 Hemoglobin A1C Confirmation 4.4 - 5.6 % 5.9 (H) TSH 0.49 - 4.67 uIU/mL 0.07 (L) 1.31 T4, free 0.61 - 1.60 ng/dL 1.08 0.62 T3, free 2.50 - 3.90 pg/mL 2.83 Latest Reference Range & Units 07/27/22 12:02 Thyroperoxidase AB <10 IU/mL 89 (H) Assessment/Plan: Delfina Whitmore presents today for evaluation of her hashimotos hypothyroidism and preDM. 1. 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 It is more common in women but can be seen in either gender and children of different ages. When TSH is normal we suggest at least annual TSH/FT4 labs to monitor for the onset of hypothyroidism. When TSH is elevated but below 10, the patient has the option to start levothyroxine if they have positive antibodies and suggestive symptoms. If TSH is >10, we recommend treatment. Levothryoxine is the standard medication and is very safe and effective. [place] thyroid is natural, dessicated porcine thyroid and is less preferred as pigs may have higher T3:T4 ratio than humans. Qudo-ygy-sues, this might be a suitable option for some families. - thyroid, pork, (ARMOUR THYROID) 60 mg tablet; Take 1 tablet (60 mg total) by mouth in the morning. Dispense: 30 tablet; Refill: 3 - TSH; Standing - T4, free; Standing - T3, free; Standing 2. Prediabetes - Diet and exercise to prevent diabetes. Avoid high carb diet. Avoid intermittent carb snacking. Exercises 30 minutes per day. Eat more vegetables like capsicum, spinach, broccoli, radish , and proteins including nuts when hungry. Encouraged to eat Mediterranean diet. - metFORMIN (GLUCOPHAGE) 500 mg tablet; 2 tabs in the evening and 1 tab in the morning Dispense: 270 tablet; Refill: 1 - Hemoglobin A1c; Standing Return to clinic: 4 months Sara Peña MD [facility] [address] [address] Dept: [phone] documented in this encounter [facility] 11-07-2023 History of Present illness Narrative Images from the original note were not included. [facility] - Allergy and Immunology HISTORY OF PRESENT ILLNESS: Delfina is a 58 y.o. female who presents for follow up regarding hives. She was referred by Shaikh Mireles MD. PCP: SHAIKH ALINE MD TODAY 11/07/23: She reports she sis doing well. She currently takes cetrizine 20 mg BID, famotidine 40 mg QD, and Xolair injections 300 mg Q4 weeks. She reports since getting into meditation she has been doing well with no breakthrough urticaria. PRIOR HISTORY: Was diagnosed with chronic urticaria. Also has a h/o Hashimotos. Around 39 years of age started having itching and hives. Used to see an registered dental assistant rda in [place]. Was on hydroxyzine and fexofenadine in the past. Was started on monteleukast 3 weeks ago. Continues to have itching at night despite daily monteleukast, Currently she is on poepcid 40 mg BID, loratadine 10 mg once BID, and monteleukast 10 QD. Despite all these medications she continues to break out in hives on a daily basis. Itching has been waking her up at night from sleep. 4 weeks ago, she had abdominal discomfort and ended up being diagnosed with UTI and cholecystitis. Currently she is on antibiotics for that. PAST MEDICAL HISTORY: Past Medical History: Diagnosis Date Acne Anxiety and depression Epigastric abdominal pain Functional belching disorder Gallstones Danni's disease Hyperlipidemia Hypertension Hypothyroidism Migraine Neuropathy Restless leg syndrome Rosacea Urinary incontinence Uterine fibroid UTI (urinary tract infection) Visual impairment PAST SURGICAL HISTORY: Past Surgical History: Procedure Laterality Date BACK SURGERY x3 2020,2017,2015 COLONOSCOPY COLONOSCOPY DIAGNOSTIC / SCREENING N/A 04/11/2023 Performed by Wolf Royal MD at [facility] ENDOSCOPY CYSTOSCOPY WITH [facility] BLADDER SOLUTION N/A 04/03/2023 Performed by Wolf Iraheta MD at [facility] ESOPHAGOGASTRODUODENOSCOPY with biopsy N/A 10/23/2022 Performed by Wolf Royal MD at [facility] ENDOSCOPY LIPOMA RESECTION 1999 UTERINE FIBROID SURGERY x3 FAMILY HISTORY: Family History Problem Relation Age of Onset Diabetes Mother Anesthesia problems Mother Stroke Mother Dementia Mother Stroke Father Kidney cancer Father Vitiligo Father Heart attack Father Leukemia Sister Vitiligo Sister Vitiligo Brother Hypertension Brother Colon cancer Neg Hx SOCIAL HISTORY: Social History Socioeconomic History Marital status: Single Tobacco Use Smoking status: Never Smokeless tobacco: Never Vaping Use Vaping status: Never Used Substance and Sexual Activity Alcohol use: Not Currently Drug use: Never Sexual activity: Defer Social Determinants of Health Food Insecurity: No Food Insecurity (11/07/2023) Hunger Screening Food Insecurity - Worry: Never True Food Insecurity - Inability: Never True Received from [facility] Safety & Environment Environmental History: Allergy Environmental History Lives with: brother and friend Secondhand Smoke Exposure?: No Pets: no Mold/mildew: Yes Pest/ Rodents: No Housing Type: House AC: Central Air Conditioning Heating: Furnace Noah: Carpet?: Yes Noah: Hardwood?: Yes Noah: Tile?: Yes ALLERGY: Allergies Allergen Reactions Gluten Diarrhea Other reaction(s): GI intolerance Lactobacillus Acidoph-Lactase Diarrhea Other reaction(s): GI intolerance Hydrogen Peroxide Facial Swelling Penicillins Unknown reaction per patient MEDICATIONS Current Outpatient Medications Medication Sig Dispense Refill cetirizine (ZyrTEC) 10 mg tablet Take 2 tablets (20 mg total) by mouth in the morning and at bedtime. 120 tablet 5 cholecalciferol, vitamin D3, 5,000 units tablet Take 1 tablet (5,000 Units total) by mouth in the morning. EPINEPHrine (EPIPEN) 0.3 mg/0.3 mL auto-injector Inject 0.3 mL (0.3 mg total) into the appropriate muscle as needed (anaphylaxis). 2 each 3 Lactobacillus acidophilus (PROBIOTIC ORAL) Take by mouth. levothyroxine (SYNTHROID, LEVOTHROID) 75 MCG tablet Take 100 mcg by mouth in the morning. multivitamin with minerals tablet Take 1 tablet by mouth in the morning. omalizumab (XOLAIR) 150 mg/mL syringe Inject 2 mL (300 mg total) under the skin every 28 days. 2 mL 11 polyethylene glycol (GLYCOLAX) 17 gram/dose powder Take 17 g by mouth in the morning for 360 days. 510 g 11 rOPINIRole (REQUIP) 0.25 mg tablet Take 1 tablet (0.25 mg total) by mouth nightly. sertraline (ZOLOFT) 25 mg tablet Take 1 tablet (25 mg total) by mouth in the morning. tretinoin (RETIN-A) 0.05 % cream Apply topically nightly. amitriptyline (ELAVIL) 10 mg tablet One capsule at 8 PM each night (Patient not taking: Reported on 06/27/2023) 30 tablet 5 cetirizine (ZyrTEC) 10 mg tablet Take 1 tablet (10 mg total) by mouth in the morning. 90 tablet 4 doxycycline (VIBRAMYCIN) 50 mg capsule escitalopram (LEXAPRO) 20 mg tablet Take 5 tablets (100 mg total) by mouth in the morning. (Patient not taking: Reported on 11/07/2023) ferrous sulfate (IRON ORAL) Take 65 mg by mouth in the morning. (Patient not taking: Reported on 11/07/2023) PREMPRO 0.45-1.5 mg per tablet take 1 tablet by mouth every morning No current facility-administered medications for this visit. ROS: A comprehensive 10+ review of systems was negative except for symptoms noted in HPI. Additional positives include: None. Physical Exam General appearance: well-nourished, well-hydrated, in NAD Head: No scalp scaling, no scalp rash, no alopecia Neck: No cervical LAD, full neck ROM Eyes: Pupils symmetric, EOMMI, no conjunctival injection, no infraorbital darkening, no periorbital edema or rash ENT: Right TM- clear, +light reflex, no effusions, not bulging Left TM- clear, +light reflex, no effusions, not bulging Nose: External nose symmetric, 1+ nasal turbinates, normal nasal mucosa, no rhinorrhea, no polyps Mouth: No oropharyngeal lesions, MMM CV: RRR, no murmur, 2+ peripheral pulses, cap refill <2s Respiratory: Comfortable WOB, normal RR, no stertor, no stridor, CTAB with good aeration throughout all lung cortez Abdomen: soft, non-distended Skin: No rash, hives, angioedema, or excoriations Neurologic: No focal deficit, normal gait Labs, imaging, and records: I have personally obtained and reviewed the labs/imaging below, with interpretation as follows: Results for orders placed or performed during the hospital encounter of 11/01/23 Vitamin D 25 hydroxy Result Value Ref Range Vit D, 25-Hydroxy 52.2 30 - 100 ng/mL Cortisol Result Value Ref Range Cortisol, Plasma 5.5 ug/dL Testosterone, Free and Total, Female or Children Result Value Ref Range Testosterone, Female or Children 9 9 - 55 ng/dL Free Testosterone, Female or Children 1.3 0.6 - 3.8 pg/mL Sex Hormone Binding Globulin, Female or Children 42 17 - 125 nmol/L Urticaria Activity Score (UAS) from [employer] on 09/06/2022 All calculations should be rechecked by clinician prior to use RESULT SUMMARY: 5 points A cutoff of 11 points for UAS7 (sum of daily UAS scores over 7 consecutive days) showed sensitivity and specificity of 74% and 86% for change in score, respectively (Mamie 2018) INPUTS: Wheals --> 2 = Moderate (20-50 wheals/24 hrs) Pruritus --> 3 = Intense (severe, interferes with normal daily activity or sleep) Assessment/ Plan: Delfina was seen today for follow-up. Diagnoses and all orders for this visit: 1. Chronic idiopathic urticaria 2. Food allergy Chronic Idiopathic Urticaria: - Urticaria improved after increasing antihistamine dose last visit. - Urticaria has been well controlled with cetirizine 20 mg BID, famotidine 40mg QD, and Xolair 300 mg Q4 weeks. - Due to drowsiness from cetirizine, will switch morning antihistamine dose to loratadine. Fexofenadine was ineffective in the past. - Decrease antihistamine dose to 10 mg loratadine (1 pill) in the morning and 10 mg cetirizine (1 pill) at night. - If any breakthrough urticaria occurs, return to 20 mg loratadine ( 2 pills) in the morning and 20 mg cetirizine (2 pills) in the evening. - Continue Xolair 300 mg Q4 weeks. Has been tolerating it well without any adverse events. - Patient advised on monitoring for and avoidance of possible exacerbating factors. - Patient is very concerned that some foods might trigger her urticria. After shared decision making, we ordered serum IgE testing for: wheat, milk, egg. Milk and wheat came back positive. Patient has been avoiding them. Has an UTD Epipen. She knows how and when to use it. - Follow up in 6 months or sooner as needed. Attestation: Akhil Smallwood MD [facility] Total time spent was 30 minutes: preparing to see the patient (e.g., review of tests), obtaining and/or reviewing history, examination, counseling and educating the patient/family/caregive, orders and documenting clinical information in the electronic or other health record. documented in this encounter [facility] 11-07-2023 Instructions Deneen Cabral - 11/07/2023 2:15 PM EDT Chronic Idiopathic Urticaria: - Urticaria improved after increasing antihistamine dose last visit. - Urticaria has been well controlled with cetirizine 20 mg BID, famotidine 40mg QD, and Xolair 300 mg Q4 weeks. - Due to drowsiness from cetirizine, will switch morning antihistamine dose to loratadine. Fexofenadine was ineffective in the past. - Decrease antihistamine dose to 10 mg loratadine (1 pill) in the morning and 10 mg cetirizine (1 pill) at night. - If any breakthrough urticaria occurs, return to 20 mg loratadine ( 2 pills) in the morning and 20 mg cetirizine (2 pills) in the evening. - Continue Xolair 300 mg Q4 weeks. Has been tolerating it well without any adverse events. - Patient advised on monitoring for and avoidance of possible exacerbating factors. - Patient is very concerned that some foods might trigger her urticria. After shared decision making, we ordered serum IgE testing for: wheat, milk, egg. Milk and wheat came back positive. Patient has been avoiding them. Has an UTD Epipen. She knows how and when to use it. - Follow up in 6 months or sooner as needed. [facility] History of Present illness Narrative Images from the original note were not included. [id number] [address] This virtual visit was made in the [facility] Date of Service: 08/13/2023 Subjective: Delfina Whitmore is a 58 y.o. female who presents today for evaluation rule out immune connective tissue disease. Patient is seen at the request of SHAIKH ALINE MD. This follow-up visit with this patient who is 58-year-old female patient presenting today as an established patient for follow-up of positive RANDELL was seen 1st time on 11/06/2022.Last time in the clinic 04/22/2023 Patient was referred by primary care suspected to have rheumatic disease based on history of joints pain shoulders,finger, no swelling, morning stiffness, she does have history of chronic urticaria. Patient denied history of Raynaud's, alopecia,she has dry eyes or dry mouth,no oral ulcers, no photosensitivity,no butterfly rash, no history of cytopenia, no history of serositis,no history of DVT or pulmonary embolism Lab test 08/14/2022 , RANDELL screen negative, smooth muscle antibodies negative, CRP normal, rheumatoid factor negative, uric acid normal, ESR normal Lab tests 11/06/2022 complements normal, antiphospholipid antibodies negative, RANDELL 1:1,280 MRI brain 10/11/2022 reported unremarkable: Today 11/30/2019, patient continued feel fatigued, brain fog and major memory issues. She does have dry eyes and dry mouth. Denied skin rash or Raynaud's and no significant ongoing joints pain.. Today 01/29/2023 patient today here for evaluation, she was supposed to be evaluated by this time by the Neurology. Lab tests done 04/23/2023 including ROSALINO panel, anti DNA, complements were normal, CBC, CMP, ESR and CRP as well as vitamin B12 were normal Today 08/13/2023 patient has not been taking amitriptyline and she thing that she has not been in need of it . Patient have had psychophysiological testing and she was found to have some impairment and was advised that she needs to have psychiatric evaluation as was felt that depression and anxiety might be contributing. The following portions of the patient's history were reviewed and updated as appropriate: allergies, current medications, past family history, past medical history, past social history, past surgical history and problem list. Review of Systems: Review of Systems Constitutional: Negative for fatigue. HENT: Dry mouth Eyes: Dry eyes Musculoskeletal: Negative for arthralgias. Skin: Negative. Psychiatric/Behavioral: Negative for sleep disturbance. Current Outpatient Medications Medication Sig Dispense Refill amitriptyline (ELAVIL) 10 mg tablet One capsule at 8 PM each night (Patient not taking: Reported on 06/27/2023) 30 tablet 5 cetirizine (ZyrTEC) 10 mg tablet Take 2 tablets (20 mg total) by mouth in the morning and at bedtime. (Patient not taking: Reported on 06/27/2023) 120 tablet 5 cetirizine (ZyrTEC) 10 mg tablet Take 1 tablet (10 mg total) by mouth in the morning. 90 tablet 4 cholecalciferol, vitamin D3, 5,000 units tablet Take 1 tablet (5,000 Units total) by mouth in the morning. doxycycline (VIBRAMYCIN) 50 mg capsule EPINEPHrine (EPIPEN) 0.3 mg/0.3 mL auto-injector Inject 0.3 mL (0.3 mg total) into the appropriate muscle as needed (anaphylaxis). 2 each 3 escitalopram (LEXAPRO) 20 mg tablet Take 5 tablets (100 mg total) by mouth in the morning. ferrous sulfate (IRON ORAL) Take 65 mg by mouth in the morning. (Patient not taking: Reported on 06/27/2023) Lactobacillus acidophilus (PROBIOTIC ORAL) Take by mouth. levothyroxine (SYNTHROID, LEVOTHROID) 75 MCG tablet Take 100 mcg by mouth in the morning. multivitamin with minerals tablet Take 1 tablet by mouth in the morning. omalizumab (XOLAIR) 150 mg/mL syringe Inject 2 mL (300 mg total) under the skin every 28 days. 2 mL 11 polyethylene glycol (GLYCOLAX) 17 gram/dose powder Take 17 g by mouth in the morning for 360 days. 510 g 11 PREMPRO 0.45-1.5 mg per tablet take 1 tablet by mouth every morning rOPINIRole (REQUIP) 0.25 mg tablet Take 1 tablet (0.25 mg total) by mouth nightly. tretinoin (RETIN-A) 0.05 % cream Apply topically nightly. No current facility-administered medications for this visit. Physical Exam: ROWLAND-28 (If Applicable) There is currently no information documented on the homunculus. Go to the Rheumatology activity and complete the homunculus joint exam. ROWLAND-28 (CRP): -- ROWLAND-28 (ESR): -- Tender (ROWLAND-28): -- Swollen (ROWLAND-28): -- There were no vitals taken for this visit.: reviewed Labs and Imaging: reviewed and discussed with the patient during the visit.I Lab Results Component Value Date WBC 6.3 04/23/2023 HGB 12.5 04/23/2023 HCT 38.0 04/23/2023 MCV 90 04/23/2023 CRP 0.6 04/23/2023 C3 138 04/23/2023 C4 32 04/23/2023 AST 17 04/23/2023 Imaging: Assessment and Plan: Delfina Whitmore is a 58 y.o. female patient with: 1. Sjogren's syndrome with keratoconjunctivitis sicca ([facility]) At This point I explained the patient that immune markers for connective tissue disease came back negative. Patient said that she has not been in need of specific indication from this clinic. Advised patient to come back to the clinic if she needs to in the future. Patient was on agreed This visit is being conducted via Video at the request of the patient and for regular follow-up care. This is a vidio encountetrt is being used in lieu of a [id number] encounter because of current pandemic situation related to Covid-19. This is to avoid [id number] contact whenever possible and limit spread of the virus. This visit is considered a video visit, which is to help assess your current healthcare needs and to determine the appropriate care you may require. This visit may be a billable service through the insurance company. Patient has consented to moving forward with this tele video visit? Yes This note was created with the assistance of a speech recognition program. While intending to generate a timely document that accurately reflects the content of the visit, no guarantee can be provided that every grammatical or spelling mistake has been or will be identified or corrected. Thank you for your understanding. [facility] Rheumatology Dr. Norman Stern MD [address] [place] [address], [address] [place] [address] Office: [phone] documented in this encounter [facility] 08-08-2023 History of Present illness Narrative Images from the original note were not included. [facility] - Allergy and Immunology HISTORY OF PRESENT ILLNESS: Delfina is a 58 y.o. female who presents for follow up regarding hives. She was referred by Shaikh Mireles MD. PCP: SHAIKH ALINE MD TODAY: She is doing better since last visit. She notes that she had a breakout on her legs of a rash for a week which is no longer present. She continues to use 20 mg cetirizine BID and 40 mg famotidine QD. Denies any side effects from Zyrtec. PRIOR HISTORY: Was diagnosed with chronic urticaria. Also has a h/o Hashimotos. Around 39 years of age started having itching and hives. Used to see an registered dental assistant rda in [place]. Was on hydroxyzine and fexofenadine in the past. Was started on monteleukast 3 weeks ago. Continues to have itching at night despite daily monteleukast, Currently she is on poepcid 40 mg BID, loratadine 10 mg once BID, and monteleukast 10 QD. Despite all these medications she continues to break out in hives on a daily basis. Itching has been waking her up at night from sleep. 4 weeks ago, she had abdominal discomfort and ended up being diagnosed with UTI and cholecystitis. Currently she is on antibiotics for that. PAST MEDICAL HISTORY: Past Medical History: Diagnosis Date Acne Anxiety and depression Epigastric abdominal pain Functional belching disorder Gallstones Danni's disease Hyperlipidemia Hypertension Hypothyroidism Migraine Neuropathy Restless leg syndrome Rosacea Urinary incontinence Uterine fibroid UTI (urinary tract infection) Visual impairment PAST SURGICAL HISTORY: Past Surgical History: Procedure Laterality Date BACK SURGERY x3 2020,2017,2016 COLONOSCOPY COLONOSCOPY DIAGNOSTIC / SCREENING N/A 04/11/2023 Performed by Wolf Royal MD at [facility] ENDOSCOPY CYSTOSCOPY WITH [facility] BLADDER SOLUTION N/A 04/03/2023 Performed by Wolf Iraheta MD at [facility] ESOPHAGOGASTRODUODENOSCOPY with biopsy N/A 10/23/2022 Performed by Wolf Royal MD at [facility] ENDOSCOPY LIPOMA RESECTION 1999 UTERINE FIBROID SURGERY x3 FAMILY HISTORY: Family History Problem Relation Age of Onset Diabetes Mother Anesthesia problems Mother Stroke Mother Dementia Mother Stroke Father Kidney cancer Father Vitiligo Father Heart attack Father Leukemia Sister Vitiligo Sister Vitiligo Brother Hypertension Brother Colon cancer Neg Hx SOCIAL HISTORY: Social History Socioeconomic History Marital status: Single Spouse name: Not on file Number of children: Not on file Years of education: Not on file Highest education level: Not on file Occupational History Not on file Tobacco Use Smoking status: Never Smokeless tobacco: Never Vaping Use Vaping Use: Never used Substance and Sexual Activity Alcohol use: Not Currently Drug use: Never Sexual activity: Defer Other Topics Concern Not on file Social History Narrative Not on file Social Determinants of Health Financial Resource Strain: Not on file Food Insecurity: No Food Insecurity (06/27/2023) Hunger Screening Food Insecurity - Worry: Never True Food Insecurity - Inability: Never True Transportation Needs: Not on file Physical Activity: Not on file Stress: Not on file Social Connections: Not on file Interpersonal Safety: Not on file Housing Instability: Not on file Environmental History: Allergy Environmental History Lives with: brother and friend Secondhand Smoke Exposure?: No Pets: no Mold/mildew: Yes Pest/ Rodents: No Housing Type: House AC: Central Air Conditioning Heating: Furnace Noah: Carpet?: Yes Noah: Hardwood?: Yes Noah: Tile?: Yes ALLERGY: Allergies Allergen Reactions Gluten Diarrhea Other reaction(s): GI intolerance Lactobacillus Acidoph-Lactase Diarrhea Other reaction(s): GI intolerance Hydrogen Peroxide Facial Swelling Penicillins Unknown reaction per patient MEDICATIONS Current Outpatient Medications Medication Sig Dispense Refill amitriptyline (ELAVIL) 10 mg tablet One capsule at 8 PM each night (Patient not taking: Reported on 06/27/2023) 30 tablet 5 cetirizine (ZyrTEC) 10 mg tablet Take 2 tablets (20 mg total) by mouth in the morning and at bedtime. (Patient not taking: Reported on 06/27/2023) 120 tablet 5 cetirizine (ZyrTEC) 10 mg tablet Take 1 tablet (10 mg total) by mouth in the morning. 90 tablet 4 cholecalciferol, vitamin D3, 5,000 units tablet Take 1 tablet (5,000 Units total) by mouth in the morning. doxycycline (VIBRAMYCIN) 50 mg capsule EPINEPHrine (EPIPEN) 0.3 mg/0.3 mL auto-injector Inject 0.3 mL (0.3 mg total) into the appropriate muscle as needed (anaphylaxis). 2 each 3 escitalopram (LEXAPRO) 20 mg tablet Take 5 tablets (100 mg total) by mouth in the morning. ferrous sulfate (IRON ORAL) Take 65 mg by mouth in the morning. (Patient not taking: Reported on 06/27/2023) Lactobacillus acidophilus (PROBIOTIC ORAL) Take by mouth. levothyroxine (SYNTHROID, LEVOTHROID) 75 MCG tablet Take 100 mcg by mouth in the morning. multivitamin with minerals tablet Take 1 tablet by mouth in the morning. omalizumab (XOLAIR) 150 mg/mL syringe Inject 2 mL (300 mg total) under the skin every 28 days. 2 mL 11 polyethylene glycol (GLYCOLAX) 17 gram/dose powder Take 17 g by mouth in the morning for 360 days. 510 g 11 PREMPRO 0.45-1.5 mg per tablet take 1 tablet by mouth every morning rOPINIRole (REQUIP) 0.25 mg tablet Take 1 tablet (0.25 mg total) by mouth nightly. tretinoin (RETIN-A) 0.05 % cream Apply topically nightly. No current facility-administered medications for this visit. ROS: A comprehensive 10+ review of systems was negative except for symptoms noted in HPI. Additional positives include: None. Physical Exam General appearance: well-nourished, well-hydrated, in NAD Head: No scalp scaling, no scalp rash, no alopecia Neck: No cervical LAD, full neck ROM Eyes: Pupils symmetric, EOMMI, no conjunctival injection, no infraorbital darkening, no periorbital edema or rash ENT: Right TM- clear, +light reflex, no effusions, not bulging Left TM- clear, +light reflex, no effusions, not bulging Nose: External nose symmetric, 1+ nasal turbinates, normal nasal mucosa, no rhinorrhea, no polyps Mouth: No oropharyngeal lesions, MMM CV: RRR, no murmur, 2+ peripheral pulses, cap refill <2s Respiratory: Comfortable WOB, normal RR, no stertor, no stridor, CTAB with good aeration throughout all lung cortez Abdomen: soft, non-distended Skin: No rash, hives, angioedema, or excoriations Neurologic: No focal deficit, normal gait Labs, imaging, and records: I have personally obtained and reviewed the labs/imaging below, with interpretation as follows: Results for orders placed or performed during the hospital encounter of 06/14/23 Vitamin D 25 hydroxy Result Value Ref Range Vit D, 25-Hydroxy 30.9 30 - 100 ng/mL Hemoglobin A1c Result Value Ref Range Hemoglobin A1C 5.7 (H) 4.4 - 5.6 % Average glucose 117 mg/dL Urticaria Activity Score (UAS) from [facility] on 09/06/2022 All calculations should be rechecked by clinician prior to use RESULT SUMMARY: 5 points A cutoff of 11 points for UAS7 (sum of daily UAS scores over 7 consecutive days) showed sensitivity and specificity of 74% and 86% for change in score, respectively (Mamie 2018) INPUTS: Wheals --> 2 = Moderate (20-50 wheals/24 hrs) Pruritus --> 3 = Intense (severe, interferes with normal daily activity or sleep) Assessment/ Plan: Delfina was seen today for follow-up. Diagnoses and all orders for this visit: 1. Chronic idiopathic urticaria Chronic Idiopathic Urticaria: - Urticaria improved after increasing antihistamine dose last visit. - Currently well controlled with cetirizine 20 mg BID, famotidine 40mg QD, and Xolair 300 mg Q4 weeks. - Continue famotidine 40 mg 1 pill daily midday. - Continue Xolair 300 mg Q4 weeks. - Patient advised on monitoring for and avoidance of possible exacerbating factors. - Patient is very concerned that some foods might trigger her urticria. After shared decision making, will order some blood food allergy tests: wheat, milk, egg -didn't obtain them. - Follow up in 3 months or sooner as needed. Attestation: Scribed for and in the presence of AKHIL SMALLWOOD MD by Tony Shook (scribe). Tony Shook 08/08/2023 1:48 PM Akhil Smallwood MD [facility] Total time spent was 30 minutes: preparing to see the patient (e.g., review of tests), obtaining and/or reviewing history, examination, counseling and educating the patient/family/caregive, orders and documenting clinical information in the electronic or other health record. documented in this encounter [facility] 08-08-2023 Instructions Akhil Smallwood MD - 08/08/2023 2:15 PM EST Chronic Idiopathic Urticaria: - Urticaria improved after increasing antihistamine dose last visit. - Currently well controlled with cetirizine 20 mg BID, famotidine 40mg QD, and Xolair 300 mg Q4 weeks. - Continue famotidine 40 mg 1 pill daily midday. - Continue Xolair 300 mg Q4 weeks. - Patient advised on monitoring for and avoidance of possible exacerbating factors. - Patient is very concerned that some foods might trigger her urticria. After shared decision making, will order some blood food allergy tests: wheat, milk, egg -didn't obtain them. - Follow up in 3 months or sooner as needed. documented in this encounter [facility] 07-02-2023 History of Present illness Narrative Patient presents for [facility] Bladder instillation per standing prn order. States that She is still having symptoms of dribbling and incontinence since starting her treatments, and hasn't seen any improvement. Perineum prepped with Betadine, 8 Fr urethral catheter inserted without difficulty, 50 ml of clear urine drained. [facility] Rx solution instilled, catheter removed. Patient tolerated the procedure well and will return in 4-6 weeks for her follow up. Alivia Alicia LPN Ordering Physician: Dr Joelle MD Supervising Physician: MD Noe documented in this encounter [facility] 06-27-2023 History of Present illness Narrative Images from the original note were not included. [facility] - Allergy and Immunology HISTORY OF PRESENT ILLNESS: Delfina is a 58 y.o. female who presents for follow up regarding hives. She was referred by Shaikh Mireles MD. PCP: SHAIKH ALINE MD TODAY: She has been experiencing excess itching. She started Xolair back in November 2022. She has not missed a dose. She is still taking cetirizine 20 mg 2 times a day. She has also tried montelukast, fexofenadine and famotidine. She describes it as something under the skin. She notes that after taking her last dose of Xolair she saw less improvement of symptoms. Patient had stopped taking famotidine. She notes that she increased her exercise recently. She also has been experiencing excess stress and has been taking ibuprofen for back stiffness. Recently she has been experiencing excess dryness of her eyes. She has a hx of Danni's disease, it is under control but still experiences symptoms. PRIOR HISTORY: Was diagnosed with chronic urticaria. Also has a h/o Hashimotos. Around 39 years of age started having itching and hives. Used to see an registered dental assistant rda in [place]. Was on hydroxyzine and fexofenadine in the past. Was started on monteleukast 3 weeks ago. Continues to have itching at night despite daily monteleukast, Currently she is on poepcid 40 mg BID, loratadine 10 mg once BID, and monteleukast 10 QD. Despite all these medications she continues to break out in hives on a daily basis. Itching has been waking her up at night from sleep. 4 weeks ago, she had abdominal discomfort and ended up being diagnosed with UTI and cholecystitis. Currently she is on antibiotics for that. PAST MEDICAL HISTORY: Past Medical History: Diagnosis Date Acne Anxiety and depression Epigastric abdominal pain Functional belching disorder Gallstones Danni's disease Hyperlipidemia Hypertension Hypothyroidism Migraine Neuropathy Restless leg syndrome Rosacea Urinary incontinence Uterine fibroid UTI (urinary tract infection) Visual impairment PAST SURGICAL HISTORY: Past Surgical History: Procedure Laterality Date BACK SURGERY x3 2020,2017,2015 COLONOSCOPY COLONOSCOPY DIAGNOSTIC / SCREENING N/A 04/11/2023 Performed by Wolf Royal MD at [facility] ENDOSCOPY CYSTOSCOPY WITH [facility] BLADDER SOLUTION N/A 04/03/2023 Performed by Wolf Iraheta MD at [facility] ESOPHAGOGASTRODUODENOSCOPY with biopsy N/A 10/23/2022 Performed by Wolf Royal MD at [facility] ENDOSCOPY LIPOMA RESECTION 1999 UTERINE FIBROID SURGERY x3 FAMILY HISTORY: Family History Problem Relation Age of Onset Diabetes Mother Anesthesia problems Mother Stroke Mother Dementia Mother Stroke Father Kidney cancer Father Vitiligo Father Heart attack Father Leukemia Sister Vitiligo Sister Vitiligo Brother Hypertension Brother Colon cancer Neg Hx SOCIAL HISTORY: Social History Socioeconomic History Marital status: Single Spouse name: Not on file Number of children: Not on file Years of education: Not on file Highest education level: Not on file Occupational History Not on file Tobacco Use Smoking status: Never Smokeless tobacco: Never Vaping Use Vaping Use: Never used Substance and Sexual Activity Alcohol use: Not Currently Drug use: Never Sexual activity: Defer Other Topics Concern Not on file Social History Narrative Not on file Social Determinants of Health Financial Resource Strain: Not on file Food Insecurity: No Food Insecurity (05/22/2023) Hunger Screening Food Insecurity - Worry: Never True Food Insecurity - Inability: Never True Transportation Needs: Not on file Physical Activity: Not on file Stress: Not on file Social Connections: Not on file Interpersonal Safety: Not on file Environmental History: Allergy Environmental History Lives with: brother and friend Secondhand Smoke Exposure?: No Pets: no Mold/mildew: Yes Pest/ Rodents: No Housing Type: House AC: Central Air Conditioning Heating: Furnace Noah: Carpet?: Yes Noah: Hardwood?: Yes Noah: Tile?: Yes ALLERGY: Allergies Allergen Reactions Hydrogen Peroxide Facial Swelling Penicillins Unknown reaction per patient MEDICATIONS Current Outpatient Medications Medication Sig Dispense Refill amitriptyline (ELAVIL) 10 mg tablet One capsule at 8 PM each night 30 tablet 5 cetirizine (ZyrTEC) 10 mg tablet Take 2 tablets (20 mg total) by mouth in the morning and at bedtime. 120 tablet 5 cetirizine (ZyrTEC) 10 mg tablet Take 1 tablet (10 mg total) by mouth in the morning. 90 tablet 4 cholecalciferol, vitamin D3, 5,000 units tablet Take 1 tablet (5,000 Units total) by mouth in the morning. doxycycline (VIBRAMYCIN) 50 mg capsule EPINEPHrine (EPIPEN) 0.3 mg/0.3 mL auto-injector Inject 0.3 mL (0.3 mg total) into the appropriate muscle as needed (anaphylaxis). 2 each 3 escitalopram (LEXAPRO) 20 mg tablet Take 5 tablets (100 mg total) by mouth in the morning. ferrous sulfate (IRON ORAL) Take 65 mg by mouth in the morning. Lactobacillus acidophilus (PROBIOTIC ORAL) Take by mouth. levothyroxine (SYNTHROID, LEVOTHROID) 75 MCG tablet Take 100 mcg by mouth in the morning. multivitamin with minerals tablet Take 1 tablet by mouth in the morning. omalizumab (XOLAIR) 150 mg/mL syringe Inject 2 mL (300 mg total) under the skin every 28 days. 2 mL 11 polyethylene glycol (GLYCOLAX) 17 gram/dose powder Take 17 g by mouth in the morning for 360 days. 510 g 11 PREMPRO 0.45-1.5 mg per tablet take 1 tablet by mouth every morning rOPINIRole (REQUIP) 0.25 mg tablet Take 1 tablet (0.25 mg total) by mouth nightly. tretinoin (RETIN-A) 0.05 % cream Apply topically nightly. No current facility-administered medications for this visit. ROS: A comprehensive 10+ review of systems was negative except for symptoms noted in HPI. Additional positives include: None. Physical Exam General appearance: well-nourished, well-hydrated, in NAD Head: No scalp scaling, no scalp rash, no alopecia Neck: No cervical LAD, full neck ROM Eyes: Pupils symmetric, EOMMI, no conjunctival injection, no infraorbital darkening, no periorbital edema or rash ENT: Right TM- clear, +light reflex, no effusions, not bulging Left TM- clear, +light reflex, no effusions, not bulging Nose: External nose symmetric, 1+ nasal turbinates, normal nasal mucosa, no rhinorrhea, no polyps Mouth: No oropharyngeal lesions, MMM CV: RRR, no murmur, 2+ peripheral pulses, cap refill <2s Respiratory: Comfortable WOB, normal RR, no stertor, no stridor, CTAB with good aeration throughout all lung cortez Abdomen: soft, non-distended Skin: No rash, hives, angioedema, or excoriations Neurologic: No focal deficit, normal gait Labs, imaging, and records: I have personally obtained and reviewed the labs/imaging below, with interpretation as follows: Results for orders placed or performed during the hospital encounter of 06/14/23 Vitamin D 25 hydroxy Result Value Ref Range Vit D, 25-Hydroxy 30.9 30 - 100 ng/mL Hemoglobin A1c Result Value Ref Range Hemoglobin A1C 5.7 (H) 4.4 - 5.6 % Average glucose 117 mg/dL Urticaria Activity Score (UAS) from [employer] on 09/06/2022 All calculations should be rechecked by clinician prior to use RESULT SUMMARY: 5 points A cutoff of 11 points for UAS7 (sum of daily UAS scores over 7 consecutive days) showed sensitivity and specificity of 74% and 86% for change in score, respectively (Mamie 2018) INPUTS: Wheals --> 2 = Moderate (20-50 wheals/24 hrs) Pruritus --> 3 = Intense (severe, interferes with normal daily activity or sleep) Assessment/ Plan: Delfina was seen today for follow-up. Diagnoses and all orders for this visit: Chronic idiopathic urticaria Chronic Idiopathic Urticaria: - Patient has been experiencing breakthrough hives despite medications (20 mg cetirizine BID and Xolair 300 mg Q 28 days). - Hasn't been using the famotidine that she used to take in the past. - Start famotidine 40 mg 1 pill daily midday. - Continue Xolair 300 mg Q4 weeks. - Will consider starting cyclosporin next if above doesn't help. - Patient advised on monitoring for and avoidance of possible exacerbating factors. - Patient is very concerned that some foods might trigger her urticria. After shared decision making, will order some blood food allergy tests: wheat, milk, egg. - Follow up in 4 weeks or sooner as needed. Attestation: Scribed for and in the presence of AKHIL SMALLWOOD MD by Tony Shook (scribe). Tony Shook 06/27/2023 2:25 PM Akhil Smallwood MD [facility] Total time spent was 30 minutes: preparing to see the patient (e.g., review of tests), obtaining and/or reviewing history, examination, counseling and educating the patient/family/caregive, orders and documenting clinical information in the electronic or other health record. documented in this encounter [facility] 06-27-2023 Instructions Tony Shook - 06/27/2023 1:45 PM EST Chronic Idiopathic Urticaria: - Patient has been experiencing breakthrough hives despite medications (20 mg cetirizine BID and Xolair 300 mg Q 28 days). - Hasn't been using the famotidine that she used to take in the past. - Start famotidine 40 mg 1 pill daily midday. - Continue Xolair 300 mg Q4 weeks. - Will consider starting cyclosporin next if above doesn't help. - Patient advised on monitoring for and avoidance of possible exacerbating factors. - Patient is very concerned that some foods might trigger her urticria. After shared decision making, will order some blood food allergy tests: wheat, milk, egg. - Follow up in 4 weeks or sooner as needed. documented in this encounter [facility] 06-24-2023 Miscellaneous Notes Patient called 06/21/23 and left a voicemail in regards of raging hive flare up since last week. I called patient with no answer. Left a voicemail to call office back to get some more information. [employer] message sent to patient as well. How is she doing today? Almost exact date when they started and where on the body it started? Is it localized in same area or has it spread elsewhere? Is she still taking her zyrtec BID? Has she tried taking anything else for it? Also, her last xolair injecion was 04/26/23. She missed a dose, she can schedule whenever she can. We have xolair in office. Patient called back, stating that she is doing Xolair at home now, so she didn't miss a dose. Last injection was 06/07/23. Flare ups started about a week after the shot 06/10/23. She has hives on her chest, stomach and legs /face Please advise if you want to see her for a follow up CK 06/25/23 documented in this encounter [facility] 06-24-2023 Telephone encounter Note Patient called 06/21/23 and left a voicemail in regards of raging hive flare up since last week. I called patient with no answer. Left a voicemail to call office back to get some more information. [facility] message sent to patient as well. How is she doing today? Almost exact date when they started and where on the body it started? Is it localized in same area or has it spread elsewhere? Is she still taking her zyrtec BID? Has she tried taking anything else for it? Also, her last xolair injecion was 04/26/23. She missed a dose, she can schedule whenever she can. We have xolair in office. [facility] 06-24-2023 Telephone encounter Note Patient called back, stating that she is doing Xolair at home now, so she didn't miss a dose. Last injection was 06/07/23. Flare ups started about a week after the shot 06/10/23. She has hives on her chest, stomach and legs /face Please advise if you want to see her for a follow up CK 06/25/23 [facility] 06-11-2023 History of Present illness Narrative Patient presents for [facility] Bladder instillation per standing prn order. States there have been increased symptoms of urine leakage since her last treatment. Perineum prepped with Betadine, 8 Fr urethral catheter inserted without difficulty, 100 ml of clear urine drained. [facility] Rx solution instilled, catheter removed. Patient tolerated the procedure well and will return in 1 week. Alivia Alicia LPN Ordering Physician: Dr Joelle MD Supervising Physician: MD Noe documented in this encounter [facility] 02-01-2023 Note Attestation signed by Yasmeen Retana, PhD at 02/04/2023 2:14 PM I participated in and supervised all aspects of this service. Yasmeen Retana, Ph.D. Clinical Neuropsychologist Vp [employer], Psychiatry & Neurology OUTPATIENT REHABILITATION SERVICES NEUROPSYCHOLOGY [address] [facility] [id number] FAX: [phone]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 Metabolic syndrome Dysmetabolic Syndrome X Prediabetes Other abnormal glucose documented in this encounter [facility]* Diagnosis Urge incontinence of urine- Primary Urge incontinence Urge incontinence of urine- Primary Urge incontinence Chronic idiopathic urticaria Idiopathic urticaria documented in this encounter [facility] SystemEvaluation note* Diagnosis Essential hypertension, benign (CMS/HCC)- Primary Essential hypertension, benign Abnormal weight gain Class 1 obesity due to excess calories without serious comorbidity with body mass index (BMI) of 33.0 to 33.9 in adult Metabolic syndrome Dysmetabolic Syndrome X Vitamin D deficiency Metabolic syndrome- Primary Dysmetabolic Syndrome X Essential hypertension, benign (CMS/HCC) Essential hypertension, benign Class 1 obesity due to excess calories without serious comorbidity with body mass index (BMI) of 33.0 to 33.9 in adult Recurrent major depressive disorder, in full remission (CMS/HCC) Recurrent major depressive disorder, in full remission (CMS/HCC)- Primary History of prediabetes Essential hypertension, benign (CMS/HCC) Essential hypertension, benign Intermittent palpitations- Primary 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 Metabolic syndrome Dysmetabolic Syndrome X Recurrent major depressive disorder, in partial remission (HCC) (CMS/HCC) Mixed anxiety and depressive disorder Dysthymic disorder Non morbid obesity due to excess calories documented in this encounter [facility]* Diagnosis Urge incontinence of urine- Primary Urge incontinence Urge incontinence of urine- Primary Urge incontinence Chronic idiopathic urticaria- Primary Idiopathic urticaria Food allergy Dermatitis due to food taken internally [facility] Diagnosis Urge incontinence of urine- Primary Urge incontinence [facility]* Diagnosis Urge incontinence of urine- Primary Urge incontinence [facility]* Diagnosis Chronic idiopathic urticaria- Primary Idiopathic urticaria [facility]* Diagnosis Endocrine disorder, unspecified Menopausal and female climacteric states Generalized hyperhidrosis [facility]* Diagnosis Chronic idiopathic urticaria- Primary Idiopathic urticaria Food allergy Dermatitis due to food taken internally [facility]* Diagnosis Chronic idiopathic urticaria Idiopathic urticaria documented in this encounter [facility] SystemEvaluation note* Diagnosis 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- Primary Prediabetes Other abnormal glucose [facility]* Diagnosis Esophageal dysphagia- Primary Dysphagia, pharyngoesophageal phase documented in this encounter [facility] SystemEvaluation note* Diagnosis Sjogren's syndrome with keratoconjunctivitis sicca (CMS-HCC)- Primary [facility]* Diagnosis Chronic idiopathic urticaria- Primary Idiopathic urticaria documented in this encounter [facility] SystemEvaluation note* Diagnosis 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 [facility]* Diagnosis Heartburn- Primary [facility]* Diagnosis 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 [facility]* Diagnosis Narrowing of lumbar intervertebral disc space- Primary Degeneration of lumbar or lumbosacral intervertebral disc Low back pain radiating to left lower extremity documented in this encounter [facility] SystemEvaluation note* Diagnosis Urge incontinence of urine- Primary Urge incontinence Urge incontinence of urine- Primary Urge incontinence 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- Primary Prediabetes Other abnormal glucose Vitamin D deficiency [facility]* Diagnosis Urge incontinence of urine- Primary Urge incontinence Urge incontinence of urine- Primary Urge incontinence Vitamin D deficiency 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 documented in this encounter [facility] SystemEvaluation note* Diagnosis Urge incontinence of urine- Primary Urge incontinence Urge incontinence of urine- Primary Urge incontinence Chronic idiopathic urticaria Idiopathic urticaria documented in this encounter [facility] SystemEvaluation note* Diagnosis Urge incontinence of urine- Primary Urge incontinence Urge incontinence of urine- Primary Urge incontinence Vitamin D deficiency 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 documented in this encounter [facility] SystemEvaluation note* Diagnosis Essential hypertension, benign (CMS/HCC)- Primary Essential hypertension, benign Abnormal weight gain Class 1 obesity due to excess calories without serious comorbidity with body mass index (BMI) of 33.0 to 33.9 in adult Metabolic syndrome Dysmetabolic Syndrome X Vitamin D deficiency Metabolic syndrome- Primary Dysmetabolic Syndrome X Essential hypertension, benign (CMS/HCC) Essential hypertension, benign Class 1 obesity due to excess calories without serious comorbidity with body mass index (BMI) of 33.0 to 33.9 in adult Recurrent major depressive disorder, in full remission (CMS/HCC) Recurrent major depressive disorder, in full remission (CMS/HCC)- Primary History of prediabetes Essential hypertension, benign (CMS/HCC) Essential hypertension, benign Intermittent palpitations- Primary 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 Metabolic syndrome Dysmetabolic Syndrome X Upper respiratory tract infection, unspecified type- Primary Recurrent major depressive disorder, in partial remission (HCC) (CMS/HCC) Psychological trauma documented in this encounter [facility] HealthcareEvaluation note* Diagnosis Essential hypertension, benign (CMS/HCC)- Primary Essential hypertension, benign Abnormal weight gain Class 1 obesity due to excess calories without serious comorbidity with body mass index (BMI) of 33.0 to 33.9 in adult Metabolic syndrome Dysmetabolic Syndrome X Vitamin D deficiency Metabolic syndrome- Primary Dysmetabolic Syndrome X Essential hypertension, benign (CMS/HCC) Essential hypertension, benign Class 1 obesity due to excess calories without serious comorbidity with body mass index (BMI) of 33.0 to 33.9 in adult Recurrent major depressive disorder, in full remission (CMS/HCC) Recurrent major depressive disorder, in full remission (CMS/HCC)- Primary History of prediabetes Essential hypertension, benign (CMS/HCC) Essential hypertension, benign Intermittent palpitations- Primary 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 Metabolic syndrome Dysmetabolic Syndrome X Recurrent major depressive disorder, in partial remission (HCC) (CMS/HCC)- Primary Attention or concentration deficit documented in this encounter [facility] HealthcareEvaluation note* Diagnosis Urge incontinence of urine- Primary Urge incontinence Urge incontinence of urine- Primary Urge incontinence 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 [facility]* Diagnosis Essential hypertension, benign (CMS/HCC)- Primary Essential hypertension, benign Abnormal weight gain Class 1 obesity due to excess calories without serious comorbidity with body mass index (BMI) of 33.0 to 33.9 in adult Metabolic syndrome Dysmetabolic Syndrome X Vitamin D deficiency Metabolic syndrome- Primary Dysmetabolic Syndrome X Essential hypertension, benign (CMS/HCC) Essential hypertension, benign Class 1 obesity due to excess calories without serious comorbidity with body mass index (BMI) of 33.0 to 33.9 in adult Recurrent major depressive disorder, in full remission (CMS/HCC) Recurrent major depressive disorder, in full remission (CMS/HCC)- Primary History of prediabetes Essential hypertension, benign (CMS/HCC) Essential hypertension, benign Intermittent palpitations- Primary 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 Metabolic syndrome Dysmetabolic Syndrome X Metabolic syndrome Dysmetabolic Syndrome X documented in this encounter [facility] note* Diagnosis Urge incontinence of urine- Primary Urge incontinence Urge incontinence of urine- Primary Urge incontinence Heartburn documented in this encounter [facility] SystemEvaluation note* Diagnosis Essential hypertension, benign (CMS/HCC)- Primary Essential hypertension, benign Abnormal weight gain Class 1 obesity due to excess calories without serious comorbidity with body mass index (BMI) of 33.0 to 33.9 in adult Metabolic syndrome Dysmetabolic Syndrome X Vitamin D deficiency Metabolic syndrome- Primary Dysmetabolic Syndrome X Essential hypertension, benign (CMS/HCC) Essential hypertension, benign Class 1 obesity due to excess calories without serious comorbidity with body mass index (BMI) of 33.0 to 33.9 in adult Recurrent major depressive disorder, in full remission (CMS/HCC) Recurrent major depressive disorder, in full remission (CMS/HCC)- Primary History of prediabetes Essential hypertension, benign (CMS/HCC) Essential hypertension, benign Intermittent palpitations- Primary 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 Metabolic syndrome Dysmetabolic Syndrome X Encounter for gynecological examination without abnormal finding- Primary Encounter for screening mammogram for malignant neoplasm of breast Osteoporosis, post-menopausal (CMS/HCC) Senile osteoporosis Encounter for screening for cervical cancer Fibroids Leiomyoma of uterus, unspecified Abnormal thyroid blood test documented in this encounter [facility]Evaluation note* Diagnosis Urge incontinence of urine- Primary Urge incontinence Urge incontinence of urine- Primary Urge incontinence 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- Primary Prediabetes Other abnormal glucose Vitamin D deficiency Class 1 obesity due to excess calories without serious comorbidity with body mass index (BMI) of 34.0 to 34.9 in adult documented in this encounter [facility] SystemEvaluation note* Diagnosis Essential hypertension, benign (CMS/HCC)- Primary Essential hypertension, benign Abnormal weight gain Class 1 obesity due to excess calories without serious comorbidity with body mass index (BMI) of 33.0 to 33.9 in adult Metabolic syndrome Dysmetabolic Syndrome X Vitamin D deficiency Metabolic syndrome- Primary Dysmetabolic Syndrome X Essential hypertension, benign (CMS/HCC) Essential hypertension, benign Class 1 obesity due to excess calories without serious comorbidity with body mass index (BMI) of 33.0 to 33.9 in adult Recurrent major depressive disorder, in full remission (CMS/HCC) Recurrent major depressive disorder, in full remission (CMS/HCC)- Primary History of prediabetes Essential hypertension, benign (CMS/HCC) Essential hypertension, benign Intermittent palpitations- Primary 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 Metabolic syndrome Dysmetabolic Syndrome X Osteopenia of left forearm documented in this encounter [facility]Evaluation note* Diagnosis Urge incontinence of urine- Primary Urge incontinence Urge incontinence of urine- Primary Urge incontinence 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 documented in this encounter [facility] SystemEvaluation note* Diagnosis Essential hypertension, benign- Primary Essential hypertension, benign Abnormal weight gain Class 1 obesity due to excess calories without serious comorbidity with body mass index (BMI) of 33.0 to 33.9 in adult Metabolic syndrome Dysmetabolic Syndrome X Vitamin D deficiency Metabolic syndrome- Primary Dysmetabolic Syndrome X Essential hypertension, benign Essential hypertension, benign Class 1 obesity due to excess calories without serious comorbidity with body mass index (BMI) of 33.0 to 33.9 in adult Recurrent major depressive disorder, in full remission Recurrent major depressive disorder, in full remission- Primary History of prediabetes Essential hypertension, benign Essential hypertension, benign Intermittent palpitations- Primary 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- Primary Metabolic syndrome Dysmetabolic Syndrome X Fibroids Leiomyoma of uterus, unspecified Abnormal thyroid blood test Hormone imbalance Menopausal symptom Night sweats Generalized hyperhidrosis Postmenopausal HRT (hormone replacement therapy) Need for prophylactic hormone replacement therapy (postmenopausal) Vaginal atrophy Postmenopausal atrophic vaginitis Mood swings Other specified episodic mood disorder Brain fog History of abnormal mammogram documented in this encounter [facility]* Diagnosis Essential hypertension, benign- Primary Essential hypertension, benign Abnormal weight gain Class 1 obesity due to excess calories without serious comorbidity with body mass index (BMI) of 33.0 to 33.9 in adult Metabolic syndrome Dysmetabolic Syndrome X Vitamin D deficiency Metabolic syndrome- Primary Dysmetabolic Syndrome X Essential hypertension, benign Essential hypertension, benign Class 1 obesity due to excess calories without serious comorbidity with body mass index (BMI) of 33.0 to 33.9 in adult Recurrent major depressive disorder, in full remission Recurrent major depressive disorder, in full remission- Primary History of prediabetes Essential hypertension, benign Essential hypertension, benign Intermittent palpitations- Primary 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- Primary Metabolic syndrome Dysmetabolic Syndrome X Metabolic encephalopathy- Primary Attention or concentration deficit Recurrent major depressive disorder, in partial remission documented in this encounter [facility]* Diagnosis Essential hypertension, benign- Primary Essential hypertension, benign Abnormal weight gain Class 1 obesity due to excess calories without serious comorbidity with body mass index (BMI) of 33.0 to 33.9 in adult Metabolic syndrome Dysmetabolic Syndrome X Vitamin D deficiency Metabolic syndrome- Primary Dysmetabolic Syndrome X Essential hypertension, benign Essential hypertension, benign Class 1 obesity due to excess calories without serious comorbidity with body mass index (BMI) of 33.0 to 33.9 in adult Recurrent major depressive disorder, in full remission Recurrent major depressive disorder, in full remission- Primary History of prediabetes Essential hypertension, benign Essential hypertension, benign Intermittent palpitations- Primary 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- Primary Metabolic syndrome Dysmetabolic Syndrome X Restless legs syndrome Restless legs syndrome (RLS) documented in this encounter [facility] HealthcareEvaluation note* Diagnosis Essential hypertension, benign- Primary Essential hypertension, benign Abnormal weight gain Class 1 obesity due to excess calories without serious comorbidity with body mass index (BMI) of 33.0 to 33.9 in adult Metabolic syndrome Dysmetabolic Syndrome X Vitamin D deficiency Metabolic syndrome- Primary Dysmetabolic Syndrome X Essential hypertension, benign Essential hypertension, benign Class 1 obesity due to excess calories without serious comorbidity with body mass index (BMI) of 33.0 to 33.9 in adult Recurrent major depressive disorder, in full remission Recurrent major depressive disorder, in full remission- Primary History of prediabetes Essential hypertension, benign Essential hypertension, benign Intermittent palpitations- Primary 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- Primary Metabolic syndrome Dysmetabolic Syndrome X Prediabetes Other abnormal glucose documented in this encounter [facility] HealthcareEvaluation note* Diagnosis Essential hypertension, benign- Primary Essential hypertension, benign Abnormal weight gain Class 1 obesity due to excess calories without serious comorbidity with body mass index (BMI) of 33.0 to 33.9 in adult Metabolic syndrome Dysmetabolic Syndrome X Vitamin D deficiency Metabolic syndrome- Primary Dysmetabolic Syndrome X Essential hypertension, benign Essential hypertension, benign Class 1 obesity due to excess calories without serious comorbidity with body mass index (BMI) of 33.0 to 33.9 in adult Recurrent major depressive disorder, in full remission Recurrent major depressive disorder, in full remission- Primary History of prediabetes Essential hypertension, benign Essential hypertension, benign Intermittent palpitations- Primary 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- Primary Metabolic syndrome Dysmetabolic Syndrome X Essential hypertension, benign Essential hypertension, benign Prediabetes Other abnormal glucose Metabolic syndrome Dysmetabolic Syndrome X Non morbid obesity due to excess calories documented in this encounter [facility] HealthcareInstructionsNot on filedocumented in this encounter[facility] SystemInstructionsNot on filedocumented in this encounterPro[facility] SystemInstructionsNot on filedocumented in this encounterProMedica Health SystemInstructionsNot on filedocumented in this encounterPro[facility] InstructionsNot on filedocumented in this encounter[facility] InstructionsNot on filedocumented in this encounterProFlor[facility] InstructionsNot on filedocumented in this encounterProFlor[facility] InstructionsNot on filedocumented in this encounterPro[facility] InstructionsNot on filedocumented in this encounterPro[facility] InstructionsNot on filedocumented in this encounterProFlorala [facility] Instructions* Attachments The following attachments cannot be sent through Care Everywhere. * Kidney Stones Discharge Instructions ([place] Island[place]) documented in this encounterProFlor[facility] SystemInstructionsNot on file documented in this encounterTuscaraw[facility] SystemInstructionsNot on file documented in this encounterProFlorala [facility] SystemInstructionsNot on file documented in this encounterPro[facility] SystemInstructionsNot on file documented in this encounterPro[facility] SystemInstructionsNot on file documented [facility] encounter[facility] SystemReason for referral (narrative)* Consultation (Routine) - Pending Review Specialty Diagnoses / Procedures Referred By Fauzia rudolph Referred To Contact [facility] Care Diagnoses Low back pain radiating to left lower extremity Mariana Muniz, [place] [address] [place] [address] [facility] [address] [place] [address] Referral ID Status Reason Start Date Expiration Date V isits Requested Visits Authorized [id number] Pending Review 02/17/2024 02/16/2025 1 1 [facility] System Summary Purpose Family History No Family History Records FoundNo Family History Records FoundNo Family History Records FoundNo Family History Records FoundNo Family History Records FoundNo Family History Records FoundNo Family History Records FoundNo Family History Records FoundNo Family History Records FoundNo Family History Records FoundNo Family History Records FoundNo Family History Records Found Advance Directives Documents on File Type Date Recorded Patient Cereal Popper Expl anation Advance Directives and Living Will 04/09/2024 4:58 PM 2023-02-06 Living Wi ll Power of Junior Copywriter 04/09/2024 4:57 PM 2022 power Of Junior Copywriter Documents on File Type Date Recorded Patient Cereal Popper Expl anation Living Will 04/11/2023 11:40 AM Documents on File Type Date Recorded Patient Cereal Popper Expl anation Living Will 04/11/2023 11:40 AM Documents on File Type Date Recorded Patient Cereal Popper Expl anation Advance Directives and Living Will 04/09/2024 4:58 PM 2023-02-06 Living Wi ll Power of Junior Copywriter 04/09/2024 4:57 PM 2022 power Of Junior Copywriter Reason for Referral Specialty Diagnoses / Procedures Referred By Fauzia rudolph Referred To Contact Diagnoses Esophageal dysphagia Procedures EGD Wolf Royal MD [address] [place] [address], [place] [id number] Referral ID Status Reason Start Date Expiration Date V isits Requested Visits Authorized [id number] Pending Review 12/16/2023 12/15/2024 1 1 Additional Source Comments INFORMATION SOURCE (unrecogn ized section and content) DATE CREATED AUTHOR 12/06/2017 [facility] DATE CREATED AUTHOR AUTHOR'S ORGANIZ ATION 09/25/2018 [facility] DATE CREATED AUTHOR AUTHOR'S ORGANIZ ATION 09/28/2019 [facility] DATE CREATED AUTHOR AUTHOR'S ORGANIZ ATION 03/26/2020 [facility] DATE CREATED AUTHOR AUTHOR'S ORGANIZ ATION 12/19/2021 [facility] DATE CREATED AUTHOR AUTHOR'S ORGANIZ ATION 06/08/2022 [facility] DATE CREATED AUTHOR AUTHOR'S ORGANIZ ATION 08/07/2022 [facility] [facility] DATE CREATED AUTHOR AUTHOR'S ORGANIZ ATION 02/05/2023 [facility] DATE CREATED AUTHOR AUTHOR'S ORGANIZ ATION 07/10/2024 [facility] DATE CREATED AUTHOR AUTHOR'S ORGANIZ ATION 11/14/2024 [facility] DATE CREATED AUTHOR AUTHOR'S ORGANIZ ATION 12/03/2024 [facility] EPIC DATE CREATED AUTHOR AUTHOR'S NATALIIA MCDONOUGH 12/13/2024 [facility] Source Comments (unrecognize d section and content) In the event this informatio n is protected by the Federal Confidentiality of Alcohol and Drug Abuse Patient Records regulations: The Federal rules restrict any use of the information to criminally investigate or prosecute any alcohol or drug abuse patient.[facility] Reason for Visit (unrecogniz ed section and content) Reason Comments Consult Cosmetic Specialty Diagnoses / Procedures Referred By Fauzia rudolph Referred To Contact [facility] Diagnoses skin resurfacing Procedures EST PATIENT VISIT LEVEL 1 Husam Jackson MD [address] [place] [address] [place] [address] [facility] [address] [place] [address] Referral ID Status Reason Start Date Expiration Date Visits Requested Visits Authorized [id number] Pending Review OON/Self Pay Override 05/21/2022 08/19/2022 1 1 Reason Comments Med Refill Reason Comments Hypertension Hyperlipidemia Restless Legs Reason Comments New Pcp Reason Comments Anxiety Reason Comments Follow-up Reason Comments Bladder Problem Reason Comments Follow-up Patient states that she still has itchiness Reason Onset Date Comments Med Refill 07/25/2023 Reason Comments Thyroid Problem New Patient Reason Comments GI Problem Pt reports she feels like food is getting stuck, and has some burning in throat. Pt states has to burp herself. Pt states has to eat food to relieve the feeling. Pt states she has some nausea. Reason Comments Follow-up Doing much better. L ast xolair 07/25/23. Reason Onset Date Comments Med Refill 01/17/2024 Reason Onset Date Comments Med Refill 03/17/2024 Reason Comments Hip Pain Patient has left hip pain. No known injury. Reason Onset Date Comments Med Refill 03/20/2024 Reason Onset Date Comments Med Refill 05/18/2024 Reason Onset Date Comments Med Refill 08/05/2024 Reason Comments Memory Loss Reason Onset Date Comments Med Refill 10/25/2024 Reason Onset Date Comments Med Refill 11/10/2024 Reason Comments Gynecologic Exam Patient present for yearly, patient denies any issues or complaints at this time. Reason Onset Date Comments Med Refill 11/12/2024 Reason Onset Date Comments Med Refill 11/30/2024 Reason Comments Memory Loss Care Teams (unrecognized sec tion and content) Pipe Organ Builder Relationship Specialty Start Date End Date Tee Valverde PCP - General Family Medicine 09/10/16 Pipe Organ Builder Relationship Specialty Start Date End Date Craig Wang MD [address] [place], [place] [id number] PCP - General Family Medicine 02/26/24 Alfredo Villasenor MD [facility], [address] [place] [phone] Referring Physician Neurology 02/24/24 Akhil Smallwood MD [address] [place] [address] [address] [place], [place] [phone] Referring Physician Allergy and Immunology 02/24/24 Wolf Royal MD [address] [place] [address], [address] [place], [place] [phone] Referring Physician Gastroenterology 02/24/24 Cait Antonio MD [address] [facility] [address] [place] [address] Obstetrics and Gynecology 02/24/24 Sara Peña MD [address] [facility], [address] [place], [place] [id number] Referring Physician Endocrinology 02/24/24 Wolf Iraheta MD [address] [place] [address] Referring Physician Urology 02/24/24 Pipe Organ Builder Relationship Specialty Start Date End Date Craig Wang MD [address] [place] [address] PCP - General Family Medicine 02/26/24 Alfredo Villasenor MD [address] [facility], [address] [place] [address] Referring Physician Neurology 02/24/24 Akhil Smallwood MD [address] [facility] [address] [place], [place] [id number] Referring Physician Allergy and Immunology 02/24/24 Wolf Royal MD [address] [facility], [address] [place] [address] Referring Physician Gastroenterology 02/24/24 Cait Antonio MD [address] [facility] [address] [place] [address] Obstetrics and Gynecology 02/24/24 Sara Peña MD [address] [facility], [address] [place] [address] Referring Physician Endocrinology 02/24/24 Wolf Iraheta MD [address] [place] [address] Referring Physician Urology 02/24/24 Pipe Organ Builder Relationship Specialty Start Date End Date Craig Wang MD [facility] [place] [address] (Fax) PCP - General Family Medicine 02/26/24 Alfredo Villasenor MD [address] [place] [address], [address] [place] [address] Referring Physician Neurology 02/24/24 [place] [address] [place] [address] [address] [place], [place] [phone] Referring Physician Allergy and Immunology 02/24/24 Wolf Royal MD [address] [place] [address], [address] [place], [place] [phone] Referring Physician Gastroenterology 02/24/24 Cait Antonio MD [address] [facility] [address] [place] [address] Obstetrics and Gynecology 02/24/24 Sara Peña MD [address] [facility], [address] [place] [address] Referring Physician Endocrinology 02/24/24 Wolf Iraheta MD [address] [place] [address] Referring Physician Urology 02/24/24 Pipe Organ Builder Relationship Specialty Start Date End Date Craig Wang MD [address] [place] [address] PCP - General Family Medicine 02/26/24 Alfredo Villasenor MD [address] [place] [address], [address] [place] [phone] Referring Physician Neurology 02/24/24 Akhil Smallwood MD [address] [place], [place] [phone] Referring Physician Allergy and Immunology 02/24/24 Wolf Royal MD [address] [place] [address], [address] [place], [place] [phone] Referring Physician Gastroenterology 02/24/24 Cait Antonio MD [facility] [address] [facility] [address] [place] [address] Obstetrics and Gynecology 02/24/24 Sara Peña MD [address] [place] [address], [address] [place] [address] Referring Physician Endocrinology 02/24/24 Wolf Iraheta MD [address] [place] [address] Referring Physician Urology 02/24/24 Pipe Organ Builder Relationship Specialty Start Date End Date Craig Wang MD [address] [place] [address] PCP - General Family Medicine 02/26/24 Alfredo Villasenor MD [address] [place] [address], [address] [place] [phone] Referring Physician Neurology 02/24/24 Akhil Smallwood MD [address] [place] [address] Referring Physician Allergy and Immunology 02/24/24 Wolf Royal MD [facility], [address] [place] [address] Referring Physician Gastroenterology 02/24/24 Cait Antonio MD [address] [place] [address] Obstetrics and Gynecology 02/24/24 Sara Peña MD [address] [facility], [address] [place] [address] Referring Physician Endocrinology 02/24/24 Wolf Iraheta MD [address] [place] [address] Referring Physician Urology 02/24/24 Pipe Organ Builder Relationship Specialty Start Date End Date Craig Wang MD [address] [place] [address] PCP - General Family Medicine 02/26/24 Alfredo Villasenor MD [address] [facility], [address] [place] [phone] Referring Physician Neurology 02/24/24 [place] [address] [place] [address] [address] [place] [address] Referring Physician Allergy and Immunology 02/24/24 Wolf Royal MD [facility]0 [facility], [address] [place] [address] Referring Physician Gastroenterology 02/24/24 Cait Antonio MD [address] [place] [address] Obstetrics and Gynecology 02/24/24 Sara Peña MD [address] [facility], [address] [place] [address] Referring Physician Endocrinology 02/24/24 Wolf Iraheta MD [address] [place] [address] Referring Physician Urology 02/24/24 Pipe Organ Builder Relationship Specialty Start Date End Date Shaikh Mireles MD [address] [place] [phone] PCP - General Internal Medicine 07/16/23 Pipe Organ Builder Relationship Specialty Start Date End Date Craig Wang MD [address] [place] [address] PCP - General Family Medicine 02/26/24 Alfredo Villasenor MD [address] [facility], [address] [place] [address] Referring Physician Neurology 02/24/24 Akhil Smallwood MD [address] [place] [address] [address] [place] [address] Referring Physician Allergy and Immunology 02/24/24 Wolf Royal MD [address] [facility], [address] [place] [address] Referring Physician Gastroenterology 02/24/24 Cait Antonio MD [address] [facility] [address] [place] [address] Obstetrics and Gynecology 02/24/24 Sara Peña MD [address] [facility], [address] [place] [address] Referring Physician Endocrinology 02/24/24 Wolf Iraheta MD [address] [place] [address] Referring Physician Urology 02/24/24 Pipe Organ Builder Relationship Specialty Start Date End Date Craig Wang MD [address] [facility] [place] [address] PCP - General Family Medicine 04/10/24 Pipe Organ Builder Relationship Specialty Start Date End Date Craig Wang MD [facility] [place] [address] PCP - General Family Medicine 02/26/24 Alfredo Villasenor MD [facility], [address] [place] [phone] Referring Physician Neurology 02/24/24 Akhil Smallwood MD [address] [place] [address] [address] [place], [place] [phone] Referring Physician Allergy and Immunology 02/24/24 Wolf Royal MD [facility], [address] [place] [address] Referring Physician Gastroenterology 02/24/24 Cait Antonio MD [address] [place] [address] Obstetrics and Gynecology 02/24/24 Sara Peña MD [address] [facility], [address] [place] [address] Referring Physician Endocrinology 02/24/24 Wolf Iraheta MD [facility] [place] [address] Referring Physician Urology 02/24/24 Pipe Organ Builder Relationship Specialty Start Date End Date Craig Wang MD [address] [place] [address] PCP - General Family Medicine 02/26/24 Alfredo Villasenor MD [facility], [address] [place] [address] Referring Physician Neurology 02/24/24 Akhil Smallwood MD [address] [place] [address] [address] [place], [place] [phone] Referring Physician Allergy and Immunology 02/24/24 Wolf Royal MD [address] [place] [address], [address] [place], [place] [phone] Referring Physician Gastroenterology 02/24/24 Cait Antonio MD [address] [place] [address] Obstetrics and Gynecology 02/24/24 Sara Peña MD [address] [facility], [address] [place] [address] Referring Physician Endocrinology 02/24/24 Wolf Iraheta MD [address] [place] [address] Referring Physician Urology 02/24/24 Pipe Organ Builder Relationship Specialty Start Date End Date Craig Wang MD PCP - General Family Medicine 04/10/24 Pipe Organ Builder Relationship Specialty Start Date End Date Shaikh Mireles MD [address] [place] [place] [address] PCP - General Internal Medicine 10/06/21 Pipe Organ Builder Relationship Specialty Start Date End Date Shaikh Mireles MD [address] [place] [address] PCP - General Internal Medicine 10/06/21 Pipe Organ Builder Relationship Specialty Start Date End Date Shaikh Mireles MD [address] [place] [address] PCP - General Internal Medicine 10/06/21 Pipe Organ Builder Relationship Specialty Start Date End Date Shaikh Mireles MD [address] [place] [address] PCP - General Internal Medicine 10/06/21 Pipe Organ Builder Relationship Specialty Start Date End Date Shaikh Mireles MD [address] [place] [address] PCP - General Internal Medicine 10/06/21 Pipe Organ Builder Relationship Specialty Start Date End Date Shaikh Mireles MD [address] [place] [address] PCP - General Internal Medicine 10/06/21 Pipe Organ Builder Relationship Specialty Start Date End Date Shaikh Mireles MD [address] [place] [address] PCP - General Internal Medicine 10/06/21 Pipe Organ Builder Relationship Specialty Start Date End Date Shaikh Mireles MD [address] [place] [address] PCP - General Internal Medicine 10/06/21 Pipe Organ Builder Relationship Specialty Start Date End Date Shaikh Mireles MD [address] [place] [place] [address] PCP - General Internal Medicine 10/06/21 Pipe Organ Builder Relationship Specialty Start Date End Date Shaikh Mireles MD [address] [place] [address] PCP - General Internal Medicine 10/06/21 Pipe Organ Builder Relationship Specialty Start Date End Date Shaikh Mireles MD [address] [place] [address] PCP - General Internal Medicine 10/06/21 Pipe Organ Builder Relationship Specialty Start Date End Date Shaikh Mireles MD PCP - General Internal Medicine 10/06/21 Pipe Organ Builder Relationship Specialty Start Date End Date Shaikh Mireles MD PCP - General Internal Medicine 10/06/21 Pipe Organ Builder Relationship Specialty Start Date End Date Shaikh Mireles MD PCP - General Internal Medicine 10/06/21 Pipe Organ Builder Relationship Specialty Start Date End Date Craig Wang MD [address] [place] [address] (Fax) PCP - General Family Medicine 04/10/24 Pipe Organ Builder Relationship Specialty Start Date End Date Craig Wang MD [address] [facility] [place] [address] (Fax) PCP - General Family Medicine 04/10/24 Pipe Organ Builder Relationship Specialty Start Date End Date Craig Wang MD [address] [place] [address] (Fax) PCP - General Family Medicine 04/10/24 Pipe Organ Builder Relationship Specialty Start Date End Date Craig Wang MD [address] [facility] [place] [address] (Fax) PCP - General Family Medicine 04/10/24 Pipe Organ Builder Relationship Specialty Start Date End Date Craig Wang MD (Fax) PCP - General Family Medicine 04/10/24 Pipe Organ Builder Relationship Specialty Start Date End Date Craig Wang MD [address] [address] PCP - General Family Medicine 02/26/24 Alfredo Villasenor MD Referring Physician Neurology 02/24/24 Akhil Smallwood MD Referring Physician Allergy and Immunology 02/24/24 Wolf Royal MD Referring Physician Gastroenterology 02/24/24 Cait Antonio MD [address] [place] [address] Obstetrics and Gynecology 02/24/24 Sara Peña MD [address] [place] [address] Referring Physician Endocrinology 02/24/24 Wolf Iraheta MD [address] [place] [address] Referring Physician Urology 02/24/24 Pipe Organ Builder Relationship Specialty Start Date End Date Craig Wang MD [address] [place] [address] PCP - General Family Medicine 02/26/24 Alfredo Villasenor MD Referring Physician Neurology 02/24/24 Akhil Smallwood MD Referring Physician Allergy and Immunology 02/24/24 Wolf Royal MD Referring Physician Gastroenterology 02/24/24 Cait Antonio MD [address] [place] [address] Obstetrics and Gynecology 02/24/24 Sara Peña MD [address] [place] [address] Referring Physician Endocrinology 02/24/24 Wolf Iraheta MD [address] [place] [address] Referring Physician Urology 02/24/24 Pipe Organ Builder Relationship Specialty Start Date End Date Craig Wang MD [address] [place] [address] PCP - General Family Medicine 02/26/24 Alfredo Villasenor MD Referring Physician Neurology 02/24/24 Akhil Smallwood MD Referring Physician Allergy and Immunology 02/24/24 Wolf Royal MD Referring Physician Gastroenterology 02/24/24 Cait Antonio MD [address] [place] [address] Obstetrics and Gynecology 02/24/24 Sara Peña MD [address] [place] [address] Referring Physician Endocrinology 02/24/24 Wolf Iraheta MD [address] [place] [address] Referring Physician Urology 02/24/24 Pipe Organ Builder Relationship Specialty Start Date End Date Craig Wang MD [address] [place] [address] (Fax) PCP - General Family Medicine 02/26/24 Alfredo Villasenor MD Referring Physician Neurology 02/24/24 Akhil Smallwood MD Referring Physician Allergy and Immunology 02/24/24 Wolf Royal MD Referring Physician Gastroenterology 02/24/24 Cait Antonio MD [address] [place] [address] Obstetrics and Gynecology 02/24/24 Sara Peña MD [address] [place] [address] Referring Physician Endocrinology 02/24/24 Wolf Iraheta MD [address] [place] [address] Referring Physician Urology 02/24/24 Pipe Organ Builder Relationship Specialty Start Date End Date Craig Wang MD [address] [place] [address] [address] [place] [address] (Fax) PCP - General Family Medicine 10/30/24 Pipe Organ Builder Relationship Specialty Start Date End Date Craig Wang MD [address] [place] [address] (Fax) PCP - General Family Medicine 02/26/24 Alfredo Villasenor MD Referring Physician Neurology 02/24/24 Akhil Smallwood MD Referring Physician Allergy and Immunology 02/24/24 Wolf Royal MD Referring Physician Gastroenterology 02/24/24 Cait Antonio MD [address] [place] [address] Obstetrics and Gynecology 02/24/24 Sara Peña MD [address] [place] [address] Referring Physician Endocrinology 02/24/24 Wolf Iraheta MD [address] [place] [address] Referring Physician Urology 02/24/24 Pipe Organ Builder Relationship Specialty Start Date End Date Craig Wang MD [address] [place] [address] (Fax) PCP - General Family Medicine 10/30/24 Pipe Organ Builder Relationship Specialty Start Date End Date Craig Wang MD [address] [place] [address] (Fax) PCP - General Family Medicine 02/26/24 Alfredo Villasenor MD Referring Physician Neurology 02/24/24 Akhil Smallwood MD Referring Physician Allergy and Immunology 02/24/24 Wolf Royal MD Referring Physician Gastroenterology 02/24/24 Cait Antonio MD [address] [place] [address] Obstetrics and Gynecology 02/24/24 Sara Peña MD [address] [place] [address] Referring Physician Endocrinology 02/24/24 Wolf Iraheta MD [address] [place] [address] Referring Physician Urology 02/24/24 Pipe Organ Builder Relationship Specialty Start Date End Date Craig Wang MD [address] [place] [address] PCP - General Family Medicine 10/30/24 Pipe Organ Builder Relationship Specialty Start Date End Date Craig Wang MD [address] [place] [address] PCP - General Family Medicine 02/26/24 Alfredo Villasenor MD Referring Physician Neurology 02/24/24 Akhil Smallwood MD Referring Physician Allergy and Immunology 02/24/24 Wolf Royal MD Referring Physician Gastroenterology 02/24/24 Cait Antonio MD [address] [place] [address] Obstetrics and Gynecology 02/24/24 Sara Peña MD [address] [place] [address] Referring Physician Endocrinology 02/24/24 Wolf Iraheta MD [address] [place] [address] Referring Physician Urology 02/24/24 Pipe Organ Builder Relationship Specialty Start Date End Date Craig Wang MD [address] [place] [address] [address] [place] [address] PCP - General Family Medicine 10/30/24 Pipe Organ Builder Relationship Specialty Start Date End Date Craig Wang MD [address] [place] [address] PCP - General Family Medicine 02/26/24 Alfredo Villasenor MD Referring Physician Neurology 02/24/24 Akhil Smallwood MD Referring Physician Allergy and Immunology 02/24/24 Wolf Royal MD Referring Physician Gastroenterology 02/24/24 Cait Antonio MD [address] [place] [address] Obstetrics and Gynecology 02/24/24 Sara Peña MD [address] [place] [address] Referring Physician Endocrinology 02/24/24 Wolf Iraheta MD [address] [place] [address] Referring Physician Urology 02/24/24 Pipe Organ Builder Relationship Specialty Start Date End Date Craig Wang MD [address] [place] [address] (Fax) PCP - General Family Medicine 02/26/24 Alfredo Villasenor MD Referring Physician Neurology 02/24/24 Akhil Smallwood MD Referring Physician Allergy and Immunology 02/24/24 Wolf Royal MD Referring Physician Gastroenterology 02/24/24 Cait Antonio MD [address] [place] [address] Obstetrics and Gynecology 02/24/24 Sara Peña MD [address] [place] [address] Referring Physician Endocrinology 02/24/24 Wolf Iraheta MD [address] [place] [address] Referring Physician Urology 02/24/24 Pipe Organ Builder Relationship Specialty Start Date End Date Craig Wang MD [address] [place] [address] (Fax) PCP - General Family Medicine 02/26/24 Alfredo Villasenor MD Referring Physician Neurology 02/24/24 Akhil Smallwood MD Referring Physician Allergy and Immunology 02/24/24 Wolf Royal MD Referring Physician Gastroenterology 02/24/24 Cait Antonio MD [address] [place] [address] Obstetrics and Gynecology 02/24/24 Sara Peña MD [address] [place] [address] Referring Physician Endocrinology 02/24/24 Wolf Iraheta MD [address] [place] [address] Referring Physician Urology 02/24/24 Pipe Organ Builder Relationship Specialty Start Date End Date Craig Wang MD [address] [place] [address] PCP - General Family Medicine 02/26/24 Alfredo Villasenor MD Referring Physician Neurology 02/24/24 Akhil Smallwood MD Referring Physician Allergy and Immunology 02/24/24 Wolf Royal MD Referring Physician Gastroenterology 02/24/24 Cait Antonio MD [address] [place] [address] Obstetrics and Gynecology 02/24/24 Sara Peña MD [address] [place] [address] Referring Physician Endocrinology 02/24/24 Wolf Iraheta MD [address] [place] [address] Referring Physician Urology 02/24/24 Pipe Organ Builder Relationship Specialty Start Date End Date Craig Wang MD [address] [place] [address] [address] [place] [address] PCP - General Family Medicine 12/31/24 Alfredo Villasenor MD Referring Physician Neurology 02/24/24 Akhil Smallwood MD Referring Physician Allergy and Immunology 02/24/24 Wolf Royal MD Referring Physician Gastroenterology 02/24/24 Cait Antonio MD [address] [place] [address] Obstetrics and Gynecology 02/24/24 Sara Peña MD [address] [place] [address] Referring Physician Endocrinology 02/24/24 Wolf Iraheta MD [address] [place] [address] Referring Physician Urology 02/24/24 FOR RECORDS PERTAINING TO PATIENTS WHO ARE OR HAVE BEEN ENROLLED IN A CHEMICAL DEPENDENCY/SUBSTANCEABUSE PROGRAM, SOME INFORMATION MAY BE OMITTED. This clinical summary was aggregated from multiple sources. Caution should be exercised in using it in the provision of clinical care. This summary normalizes information from multiple sources, and as a consequence, information in this document may materially change the coding, format and clinical context of patient data. In addition, data may be omitted in some cases. CLINICAL DECISIONS SHOULD BE BASED ON THE PRIMARY CLINICAL RECORDS. [facility] provides no warranty or guarantee of the accuracy or completeness of information in this document.
[2025-01-03] MEDS: KETOROLAC TROMETHAMINE 30 MG/ML VIAL IVP (14:03)
[2025-01-03 14:06] LABS: Hematocrit 34.5 % (36.0-48.0); Hemoglobin 11.2 g/dL (12.0-16.0); Immature Granulocytes Abs Auto 0.06 10^3/uL (0.00-0.03); Immature Granulocytes Pct Auto 0.5 % (0.0-0.5); Lymphocytes Absolute Auto 3.2 10^3/uL (1.2-3.8); Mean Corpuscular HGB Conc 32.5 g/dL (29.9-35.2); Mean Corpuscular Hemoglobin 28.4 pg (26.7-34.0); Mean Corpuscular Volume 87.6 fL (81.0-99.0); Platelet Count 292 10^3/uL (150-450); Red Blood Count 3.94 10^6/uL (4.20-5.40); White Blood Count 11.7 10^3/uL (4.0-11.0)
[2025-01-03 14:25] LABS: Alanine Aminotransferase 32 U/L (14-59); Albumin Globulin Ratio 1.1; Albumin Level 3.7 g/dL (3.4-5.0); Alkaline Phosphatase 64 U/L (46-116); Anion Gap 14.5; Aspartate Amino Transferase 19 U/L (15-37); Blood Urea Nitrogen 17.0 mg/dL (7.0-18.0); Calcium 9.0 mg/dL (8.5-10.1); Carbon Dioxide 28.9 mmol/L (21.0-32.0); Chloride 101 mmol/L (98-107); Estimated GFR (African America >60 (>=60 mL/min/1.73m^2); Estimated GFR (Non-African Ame >60 (>=60 mL/min/1.73m^2); Globulin 3.5 g/dL; Glucose 111 mg/dL (74-106); Potassium 3.4 mmol/L (3.5-5.1); Sodium 141 mmol/L (136-145); Total Protein 7.2 g/dL (6.4-8.2)
--- NOTE | 2025-01-03 15:04 | ED.CHESTPAI1 ---
HPI - Chest Pain General Chief Complaint: Chest Pain Stated Complaint: SHOULDER AND CHEST PAIN Time Seen by Provider: 01/03/25 13:44 Source: patient Mode of arrival: walk-in Limitations: no limitations History of Present Illness HPI narrative: The patient is coming to the ER with almost more than 10 days history of left-sided chest wall pain it was at with her scapular area, she mentioned that she was evaluated as outpatient and she was provided with prednisone she has 2 more days left of the prednisone, she is complaining of left-sided pain that is sometimes radiating to the shoulder as well as right now she was eating to the front of the chest, pain associated with movement and taking a deep breath or leaning on the left scapular area The patient mentioned that she started having this pain after she was using the wheel barrel she was using bathroom some heavy objects The patient denies any shortness of breath cough or fever Related Data Home Medications �Medication �Instructions �Recorded �Confirmed albuterol sulfate 90 mcg/actuation 2 puff inhalation TID PRN 01/03/25 01/03/25 aerosol inhaler shortness of breath or wheezing alendronate 35 mg tablet 35 mg PO QWEEK 01/03/25 01/03/25 cyclobenzaprine 10 mg tablet 0.5 mg PO TID PRN muscle pain 01/03/25 01/03/25 liothyronine 5 mcg tablet 5 mcg PO DAILY 01/03/25 01/03/25 lisinopril 20 1 tab PO DAILY 01/03/25 01/03/25 mg-hydrochlorothiazide 12.5 mg tablet losartan 50 mg-hydrochlorothiazide 1 tab PO DAILY 01/03/25 01/03/25 12.5 mg tablet metformin 1,000 mg tablet 1,000 mg PO DAILY 01/03/25 01/03/25 nystatin 100,000 unit/mL oral 1 ml buccal Q6H 01/03/25 01/03/25 suspension pantoprazole 40 mg tablet,delayed 40 mg PO QAM 01/03/25 01/03/25 release prednisone 50 mg tablet 50 mg PO DAILY 01/03/25 01/03/25 Previous Rx's �Medication �Instructions �Recorded diclofenac sodium 75 mg 75 mg PO BID PRN pain #20 tabs 01/03/25 tablet,delayed release Allergies Allergy/AdvReac Type Severity Reaction Status Date / Time Penicillins Allergy Severe Rash Verified 01/03/25 13:43 Review of Systems ROS Status of ROS 10 or more systems reviewed and unremarkable except as noted in history and below PFSH PFSH Social History Little interest or pleasure in doing things: not at all Feeling down, depressed, or hopeless: not at all Exam Narrative Exam Narrative: Nurses notes and vital signs reviewed and patient is not hypoxic. General: Well-appearing but in distress due to pain Skin: Warm, dry, no pallor noted. No rash. Head: Normocephalic, atraumatic. Neck: Supple, non-tender. Eye: Pupils are equal, round and EOMI. No scleral icterus. Cardiovascular: Regular Rate and Rhythm without murmur, gallop or rub. Respiratory: No accessory muscle use or respiratory distress. Lungs are clear to auscultation, no wheezing, rales or rhonchi Chest Wall: Significant tenderness on palpation of the left scapular area with no ecchymosis no rash Back: No midline thoracic or lumbar vertebral tenderness. No CVA tenderness Musculoskeletal: normal ROM, no calf or popliteal tenderness, no lower extremity edema/swelling ,the patient have full range of movement of the left shoulder with no tenderness on palpation and no vascular injury detected GI: Abdomen is soft, non-distended. Normal bowel sounds. No masses appreciated. No tenderness to palpation. No rebound, guarding, or rigidity noted. Neurological: A&O x4. No cranial nerve dysfunction observed. Constitutional Vital Signs, click to edit/add: Last Vital Signs Pulse 65 01/03/25 14:40 Resp 18 01/03/25 14:40 BP 143/89 H 01/03/25 14:30 Pulse Ox 99 01/03/25 13:41 O2 Del Method Room Air 01/03/25 13:38 Course Vital Signs Vital signs: Vital Signs Pulse Rate 71 01/03/25 13:38 Respiratory Rate 24 H 01/03/25 13:38 Blood Pressure 158/92 H 01/03/25 13:38 Pulse Oximetry 99 01/03/25 13:38 Oxygen Delivery Method Room Air 01/03/25 13:38 Pulse Rate 65 01/03/25 14:40 Respiratory Rate 18 01/03/25 14:40 Blood Pressure 143/89 H 01/03/25 14:30 Pulse Oximetry 99 01/03/25 13:41 Oxygen Delivery Method Room Air 01/03/25 13:38 MDM - Chest Pain MDM Narrative Medical decision making narrative: The patient EKG showing sinus rhythm with a heart rate of [address] elevation or depression The patient chemistry as well as troponin are negative in addition to CBC with no acute significant finding Her potassium was 3.4 which is mild and can be corrected with changes in diet The patient the patient provided with Toradol in the ER she was feeling much better Discharged home with Voltaren for pain management Patient also was instructed on hydration and follow-up with her primary care doctor for further evaluation D-dimer was negative Chest x-ray showed no acute pathology The patient is to follow up with primary care physician in next 2-3 days or to return to the emergency department should any of the signs or symptoms worsen or new symptoms develop. The patient agrees with the following Diagnosis and Treatment plan and the patient will be discharged home. Lab Data Labs: Lab Results 01/03/25 Range/Units 14:00 WBC 11.7 H (4.0-11.0) 10^3/uL RBC 3.94 L (4.20-5.40) 10^6/uL Hgb 11.2 L (12.0-16.0) g/dL Hct 34.5 L (36.0-48.0) % MCV 87.6 (81.0-99.0) fL MCH 28.4 (26.7-34.0) pg MCHC 32.5 (29.9-35.2) g/dL RDW 13.2 (11.0-15.0) % Plt Count 292 (150-450) 10^3/uL MPV 10.1 (9.5-13.5) fL Neut % (Auto) 66.5 (43.0-75.0) % Lymph % (Auto) 27.3 (20.5-60.0) % [place] % (Auto) 4.8 (1.7-12.0) % Eos % (Auto) 0.6 L (0.9-7.0) % Baso % (Auto) 0.3 (0.2-2.0) % Neut # (Auto) 7.8 H (1.4-6.5) 10^3/uL Lymph # (Auto) 3.2 (1.2-3.8) 10^3/uL [place] # (Auto) 0.6 (0.3-0.8) 10^3/uL Eos # (Auto) 0.1 (0.0-0.7) 10^3/uL Baso # (Auto) 0.0 (0.0-0.1) 10^3/uL Abs Immat Gran (auto) 0.06 H (0.00-0.03) 10^3/uL Imm/Tot Granulo (auto) 0.5 (0.0-0.5) % D-Dimer <0.19 (<=0.59) mg/L FEU Sodium 141 (136-145) mmol/L Potassium 3.4 L (3.5-5.1) mmol/L Chloride 101 (98-107) mmol/L Carbon Dioxide 28.9 (21.0-32.0) mmol/L Anion Gap 14.5 BUN 17.0 (7.0-18.0) mg/dL Creatinine 0.85 (0.55-1.02) mg/dL Est GFR ( Amer) >60 (>=60 mL/min/1.73m^2) Est GFR (Non-Af Amer) >60 (>=60 mL/min/1.73m^2) BUN/Creatinine Ratio 20.0 Glucose 111 H (74-106) mg/dL Calcium 9.0 (8.5-10.1) mg/dL Total Bilirubin 0.5 (0.2-1.0) mg/dL AST 19 (15-37) U/L ALT 32 (14-59) U/L Alkaline Phosphatase 64 (46-116) U/L Troponin I High Sens 7.7 (4.0-51.3) pg/mL Total Protein 7.2 (6.4-8.2) g/dL Albumin 3.7 (3.4-5.0) g/dL Globulin 3.5 g/dL Albumin/Globulin Ratio 1.1 Discharge Plan Discharge Chief Complaint: Chest Pain Clinical Impression: Atypical chest pain, Chest wall pain Patient Disposition: Home, Self-Care Time of Disposition Decision: 15:01 Condition: Good Mode of Transportation: Private Vehicle Prescriptions / Home Meds: New diclofenac sodium 75 mg tablet,delayed release (DR/EC) 75 mg PO BID PRN (Reason: pain) Qty: 20 0RF No Action albuterol sulfate 90 mcg/actuation HFA aerosol inhaler 2 puff INHALATION TID PRN (Reason: shortness of breath or wheezing) alendronate 35 mg tablet 35 mg PO QWEEK cyclobenzaprine 10 mg tablet 0.5 mg PO TID PRN (Reason: muscle pain) liothyronine 5 mcg tablet 5 mcg PO DAILY lisinopril-hydrochlorothiazide 20-12.5 mg tablet 1 tab PO DAILY losartan-hydrochlorothiazide 50-12.5 mg tablet 1 tab PO DAILY metformin 1,000 mg tablet 1,000 mg PO DAILY nystatin 100,000 unit/mL suspension 1 ml buccal Q6H pantoprazole 40 mg tablet,delayed release (DR/EC) 40 mg PO QAM prednisone 50 mg tablet 50 mg PO DAILY Print Language: Danish Instructions: Chest Wall Pain (ED) Referrals: DAVID WANG [Primary Care Provider, Family Practice] - 1 week Discharge Date/Time: 01/03/25 15:11
== END 2025-01-03 15:11 | disposition home or self-care (01) ==
PROVIDERS: Emergency Provider Emergency Medicine; Family Provider Internal Medicine; PCP Family Medicine
DX: R07.89 Other chest pain (principal)
CPT/HCPCS: 36415; 71045; 80053; 84484; 85025; 85378; 93005; 96374; 99285; J1885